=== PATIENT | male | born 1935 | race Caucasian/White ===

== ENCOUNTER → 2017-08-28 21:15 | Outpatient (CLI) | payer MEDICARE, BC | END | disposition home or self-care (01) | LOC: D.MAMMO 12:00 | DX: N64.59 Other signs and symptoms in breast (principal) ==

== ENCOUNTER 2018-07-02 11:29 | Inpatient (IN) | payer MEDICARE, BC ==
[~2018-07-02] VITALS: Ht 177.8 cm; Wt 96.4 kg
[2018-07-02 12:23] LABS: BASOPHILS 0.1 % (0-2); EOSINOPHILS 0.1 % (0-7); HEMATOCRIT 45.6 % (42.0-54.0); HEMOGLOBIN 15.5 g/dL (13.5-17.5); IMMATURE GRANULOCYTES 0.2 % (0-5); LYMPHOCYTES 3.5 % (15-50); MCH 32.9 pg (26.0-34.0); MCV 96.8 fL (80.0-100.0); MEAN PLATELET VOLUME 11.3 fL (7.4-10.4); MONOCYTES 6.7 % (2-11); NEUTROPHILS 89.4 % (40-80); PLATELET COUNT 197 10x3/uL (130-400); RBC 4.71 10x6/uL (4.20-6.10); RDW 14.7 % (11.5-14.5); WBC 17.7 10x3/uL (4.8-10.8)
[2018-07-02 12:24] LABS: ALKALINE PHOSPHATASE 153 U/L (46-116); ALT (SGPT) 431 U/L (10-68); BILIRUBIN - TOTAL 3.24 mg/dL (0.2-1.3); CALC OSMOLALITY 282 mosm/kg (275-300); CALCIUM 9.2 mg/dL (8.5-10.1); CARBON DIOXIDE 21.1 mmol/L (21.0-32.0); CHLORIDE - SERUM 103 mmol/L (98-107); POTASSIUM - SERUM 4.2 mmol/L (3.5-5.1); PROTEIN - SERUM 7.6 g/dL (6.4-8.2); SODIUM 138 mmol/L (136-145); UREA NITROGEN 15 mg/dL (7-18); eGFR NON AFRICAN AMERICAN 76 mL/min (90-120)
[2018-07-02 12:27] LABS: GLUCOSE 201 mg/dL (74-106); TROPONIN-I < 0.017 ng/mL (0.000-0.060)
[2018-07-02 12:58] LABS: AMYLASE - SERUM 2450 U/L (25-115)
[2018-07-02 13:00] VITALS: BP 159/90
[2018-07-02 13:01] LABS: LIPASE 23514 U/L (73-393)
[2018-07-02 13:40] VITALS: BP 157/96
[2018-07-02 15:00] VITALS: BP 138/93
[2018-07-02 16:00] VITALS: BP 173/103
[2018-07-02 16:04] LABS: CHOL - HDL RATIO 3.4 ratio (2.3-4.9); LDL-HDL RATIO 2.1 ratio (1.5-3.5)
[2018-07-02 16:20] LABS: APPEARANCE CLEAR (CLEAR); BILIRUBIN NEGATIVE (NEGATIVE); COLOR YELLOW (YELLOW); GLUCOSE NEGATIVE (NEGATIVE); KETONE NEGATIVE (NEGATIVE); NITRITE NEGATIVE (NEGATIVE); PROTEIN NEGATIVE (NEGATIVE); UROBILINOGEN NORMAL (NORMAL)
[2018-07-02] MEDS ORDERED: ASPIRIN81 MG PO (17:40)
[2018-07-02 17:49] VITALS: BP 136/78; BMI 29.4
[2018-07-02 20:30] VITALS: BP 151/86
[2018-07-03 00:32] VITALS: BP 174/87
[2018-07-03 00:32] LABS: COLOR DK YELLOW (YELLOW)
[2018-07-03 00:33] LABS: APPEARANCE CLEAR (CLEAR); BACTERIA NONE SEEN /hpf (NONE SEEN); BILIRUBIN 2+ (NEGATIVE); EPITHELIAL CELLS NSEEN /hpf (0-5); GLUCOSE NEGATIVE (NEGATIVE); KETONE NEGATIVE (NEGATIVE); NITRITE NEGATIVE (NEGATIVE); PROTEIN TRACE mg/dL (NEGATIVE); RED CELLS - URINE RARE /hpf (0-5); UROBILINOGEN NORMAL (NORMAL); WHITE CELLS - URINE NSEEN /hpf (0-5)
[2018-07-03 04:39] VITALS: BP 130/93
[2018-07-03 06:05] LABS: INR 1.05 (0.85-1.17); PROTIME 13.2 SECONDS (11.6-15.0)
[2018-07-03 06:19] LABS: HEMATOCRIT 41.9 % (42.0-54.0); HEMOGLOBIN 14.5 g/dL (13.5-17.5); MCH 32.9 pg (26.0-34.0); MCHC 34.6 g/dL (31.0-37.0); MEAN PLATELET VOLUME 11.3 fL (7.4-10.4); PLATELET COUNT 196 10x3/uL (130-400); RBC 4.41 10x6/uL (4.20-6.10); RDW 14.8 % (11.5-14.5); WBC 25.2 10x3/uL (4.8-10.8)
[2018-07-03 06:27] LABS: ALBUMIN 3.2 g/dL (3.4-5.0); ALKALINE PHOSPHATASE 127 U/L (46-116); BILIRUBIN - DIRECT 1.17 mg/dL (0.00-0.30); BILIRUBIN - TOTAL 2.07 mg/dL (0.2-1.3); C-REACTIVE PROTEIN 11.1 mg/dL (0.0-0.9); CALCIUM 8.1 mg/dL (8.5-10.1); CHLORIDE - SERUM 104 mmol/L (98-107); CREATININE - SERUM 0.9 mg/dL (0.6-1.3); MAGNESIUM - SERUM 1.7 mg/dL (1.8-2.4); POTASSIUM - SERUM 3.7 mmol/L (3.5-5.1); PROTEIN - SERUM 6.8 g/dL (6.4-8.2); SODIUM 137 mmol/L (136-145); UREA NITROGEN 16 mg/dL (7-18); eGFR NON AFRICAN AMERICAN 86 mL/min (90-120)
[2018-07-03 06:33] LABS: ALT (SGPT) 322 U/L (10-68); CALC OSMOLALITY 276 mosm/kg (275-300); GLUCOSE 139 mg/dL (74-106)
[2018-07-03 06:35] LABS: AMYLASE - SERUM 1069 U/L (25-115)
[2018-07-03 07:02] LABS: LIPASE 5287 U/L (73-393)
[2018-07-03 07:46] LABS: LYMPHOCYTES 1 % (15-50); MONOCYTES 6 % (2-11); NEUTROPHILS 83 % (40-80); PLATELET ESTIMATE NORMAL
[2018-07-03 09:37] VITALS: BP 149/81
[2018-07-03 10:01] VITALS: BMI 29.7
[2018-07-03 12:27] VITALS: BP 124/83
[2018-07-03 18:34] VITALS: BP 132/80
[2018-07-03 20:00] VITALS: BP 120/77
[2018-07-04] VITALS: BP 132/71
[2018-07-04 04:00] VITALS: BP 134/78
[2018-07-04 04:58] LABS: BASOPHILS 0.1 % (0-2); EOSINOPHILS 0 % (0-7); HEMATOCRIT 42.7 % (42.0-54.0); HEMOGLOBIN 14.3 g/dL (13.5-17.5); LYMPHOCYTES 4.5 % (15-50); MCH 32.9 pg (26.0-34.0); MCHC 33.5 g/dL (31.0-37.0); MCV 98.4 fL (80.0-100.0); MEAN PLATELET VOLUME 11.4 fL (7.4-10.4); MONOCYTES 6.7 % (2-11); NEUTROPHILS 87.7 % (40-80); PLATELET COUNT 189 10x3/uL (130-400); RBC 4.34 10x6/uL (4.20-6.10); RDW 15.4 % (11.5-14.5); WBC 38.5 10x3/uL (4.8-10.8)
[2018-07-04 08:12] VITALS: BP 149/88
[2018-07-04 08:42] LABS: ALBUMIN 2.6 g/dL (3.4-5.0); ALKALINE PHOSPHATASE 86 U/L (46-116); ALT (SGPT) 176 U/L (10-68); BILIRUBIN - DIRECT 0.39 mg/dL (0.00-0.30); BILIRUBIN - TOTAL 0.91 mg/dL (0.2-1.3); CALC OSMOLALITY 273 mosm/kg (275-300); CALCIUM 7.8 mg/dL (8.5-10.1); CARBON DIOXIDE 22.3 mmol/L (21.0-32.0); CHLORIDE - SERUM 103 mmol/L (98-107); GLUCOSE 163 mg/dL (74-106); MAGNESIUM - SERUM 1.6 mg/dL (1.8-2.4); POTASSIUM - SERUM 3.8 mmol/L (3.5-5.1); PROTEIN - SERUM 6.1 g/dL (6.4-8.2); SODIUM 134 mmol/L (136-145); UREA NITROGEN 19 mg/dL (7-18); eGFR NON AFRICAN AMERICAN 76 mL/min (90-120)
[2018-07-04 11:05] LABS: LIPASE 394 U/L (73-393)
[2018-07-04 11:06] LABS: AMYLASE - SERUM 171 U/L (25-115)
[2018-07-04 11:09] LABS: APPEARANCE HAZY (CLEAR); COLOR DK YELLOW (YELLOW); SPECIFIC GRAVITY 1.025 (1.005-1.020)
[2018-07-04 11:10] LABS: BACTERIA MODERATE /hpf (NONE SEEN); BILIRUBIN NEGATIVE (NEGATIVE); EPITHELIAL CELLS 0-5 /hpf (0-5); GLUCOSE NEGATIVE (NEGATIVE); GRANULAR CAST 0-5 /lpf (NONE SEEN); HYALINE CAST RARE /lpf (NONE SEEN); KETONE NEGATIVE (NEGATIVE); MUCUS <1+ /lpf (NONE SEEN); NITRITE POSITIVE (NEGATIVE); PROTEIN 1+ mg/dL (NEGATIVE); UROBILINOGEN NORMAL (NORMAL); WHITE CELLS - URINE 0-5 /hpf (0-5)
[2018-07-04 12:31] VITALS: BP 124/82
[2018-07-04 16:39] VITALS: BP 150/82
[2018-07-04 20:00] VITALS: BP 135/82
[2018-07-05 00:06] VITALS: BP 143/71
[2018-07-05 04:00] VITALS: BP 130/88
[2018-07-05 05:24] LABS: HEMATOCRIT 35.4 % (42.0-54.0); IMMATURE GRANULOCYTES 0.5 % (0-5); MCH 32.5 pg (26.0-34.0); MCHC 33.9 g/dL (31.0-37.0); MCV 95.9 fL (80.0-100.0); PLATELET COUNT 150 10x3/uL (130-400); RBC 3.69 10x6/uL (4.20-6.10); RDW 15.1 % (11.5-14.5); WBC 23.1 10x3/uL (4.8-10.8)
[2018-07-05 05:25] LABS: ALBUMIN 2.2 g/dL (3.4-5.0); ALKALINE PHOSPHATASE 73 U/L (46-116); CALC OSMOLALITY 272 mosm/kg (275-300); CALCIUM 7.7 mg/dL (8.5-10.1); CARBON DIOXIDE 21.6 mmol/L (21.0-32.0); CHLORIDE - SERUM 102 mmol/L (98-107); GLUCOSE 150 mg/dL (74-106); LIPASE 125 U/L (73-393); MAGNESIUM - SERUM 1.9 mg/dL (1.8-2.4); POTASSIUM - SERUM 3.5 mmol/L (3.5-5.1); PROTEIN - SERUM 5.8 g/dL (6.4-8.2); SODIUM 134 mmol/L (136-145); UREA NITROGEN 18 mg/dL (7-18)
[2018-07-05 05:28] LABS: ALT (SGPT) 110 U/L (10-68); AMYLASE - SERUM 67 U/L (25-115); CREATININE - SERUM 0.7 mg/dL (0.6-1.3); eGFR NON AFRICAN AMERICAN > 90 mL/min (90-120)
[2018-07-05 08:45] LABS: EOSINOPHILS 3 % (0-7); LYMPHOCYTES 13 % (15-50); MONOCYTES 2 % (2-11); NEUTROPHILS 82 % (40-80)
[2018-07-05 08:46] LABS: BASOPHILS 0 % (0-2)
[2018-07-05 08:47] LABS: EOSINOPHILS 3 % (0-7); LYMPHOCYTES 13 % (15-50); MONOCYTES 2 % (2-11); NEUTROPHILS 82 % (40-80); PLATELET ESTIMATE NORMAL
[2018-07-05 09:51] VITALS: BP 133/76
[2018-07-05 13:11] VITALS: BP 137/80
[2018-07-05 17:40] VITALS: BP 145/82
[2018-07-06] VITALS (7 sets, daily range): BP systolic 126–155; BP diastolic 72–89
[2018-07-06 04:53] LABS: HEMOGLOBIN 11.5 g/dL (13.5-17.5); MCH 32.3 pg (26.0-34.0); MCHC 33.8 g/dL (31.0-37.0); MCV 95.5 fL (80.0-100.0); MEAN PLATELET VOLUME 11.3 fL (7.4-10.4); PLATELET COUNT 145 10x3/uL (130-400); RBC 3.56 10x6/uL (4.20-6.10); RDW 14.9 % (11.5-14.5); WBC 21.7 10x3/uL (4.8-10.8)
[2018-07-06 05:30] LABS: ALBUMIN 2.1 g/dL (3.4-5.0); ALKALINE PHOSPHATASE 73 U/L (46-116); BILIRUBIN - TOTAL 0.67 mg/dL (0.2-1.3); CALC OSMOLALITY 268 mosm/kg (275-300); CALCIUM 7.6 mg/dL (8.5-10.1); CARBON DIOXIDE 20.3 mmol/L (21.0-32.0); CHLORIDE - SERUM 102 mmol/L (98-107); CREATININE - SERUM 0.7 mg/dL (0.6-1.3); GLUCOSE 129 mg/dL (74-106); LIPASE 80 U/L (73-393); MAGNESIUM - SERUM 1.8 mg/dL (1.8-2.4); POTASSIUM - SERUM 3.7 mmol/L (3.5-5.1); PROTEIN - SERUM 5.8 g/dL (6.4-8.2); SODIUM 133 mmol/L (136-145); UREA NITROGEN 14 mg/dL (7-18); eGFR NON AFRICAN AMERICAN > 90 mL/min (90-120)
[2018-07-06 05:32] LABS: LYMPHOCYTES 9 % (15-50); MONOCYTES 4 % (2-11); NEUTROPHILS 81 % (40-80); PLATELET ESTIMATE NORMAL; PLATELET MORPHOLOGY GIANT PLTS PRESENT
[2018-07-06 05:34] LABS: ALT (SGPT) 72 U/L (10-68); AMYLASE - SERUM 47 U/L (25-115)
[2018-07-07] VITALS (7 sets, daily range): BP systolic 129–189; BP diastolic 78–96
[2018-07-07 05:36] LABS: HEMATOCRIT 34.5 % (42.0-54.0); LYMPHOCYTES 4.7 % (15-50); MCH 34.3 pg (26.0-34.0); MCHC 34.8 g/dL (31.0-37.0); MCV 98.6 fL (80.0-100.0); MEAN PLATELET VOLUME 11.2 fL (7.4-10.4); NEUTROPHILS 87.3 % (40-80); PLATELET COUNT 91 10x3/uL (130-400); RDW 15.4 % (11.5-14.5); WBC 22.9 10x3/uL (4.8-10.8)
[2018-07-07 05:58] LABS: ALBUMIN 2.1 g/dL (3.4-5.0); ALKALINE PHOSPHATASE 67 U/L (46-116); BILIRUBIN - TOTAL 0.56 mg/dL (0.2-1.3); CALC OSMOLALITY 275 mosm/kg (275-300); CALCIUM 7.4 mg/dL (8.5-10.1); CARBON DIOXIDE 22.3 mmol/L (21.0-32.0); CHLORIDE - SERUM 104 mmol/L (98-107); CREATININE - SERUM 0.7 mg/dL (0.6-1.3); GLUCOSE 143 mg/dL (74-106); LIPASE 104 U/L (73-393); MAGNESIUM - SERUM 1.9 mg/dL (1.8-2.4); POTASSIUM - SERUM 3.4 mmol/L (3.5-5.1); PROTEIN - SERUM 4.9 g/dL (6.4-8.2); SODIUM 137 mmol/L (136-145); UREA NITROGEN 12 mg/dL (7-18); eGFR NON AFRICAN AMERICAN > 90 mL/min (90-120)
[2018-07-07 05:59] LABS: ALT (SGPT) 51 U/L (10-68); AMYLASE - SERUM 34 U/L (25-115)
[2018-07-08 03:39] VITALS: BP 159/93
[2018-07-08 07:16] LABS: HEMATOCRIT 33.4 % (42.0-54.0); HEMOGLOBIN 11.3 g/dL (13.5-17.5); MCH 32.1 pg (26.0-34.0); MCHC 33.8 g/dL (31.0-37.0); MCV 94.9 fL (80.0-100.0); MEAN PLATELET VOLUME 10.8 fL (7.4-10.4); PLATELET COUNT 158 10x3/uL (130-400); RBC 3.52 10x6/uL (4.20-6.10); RDW 14.9 % (11.5-14.5); WBC 26.4 10x3/uL (4.8-10.8)
[2018-07-08 07:57] LABS: LYMPHOCYTES 6 % (15-50); MONOCYTES 3 % (2-11); NEUTROPHILS 91 % (40-80)
[2018-07-08 08:00] LABS: PLATELET ESTIMATE NORMAL; PLATELET MORPHOLOGY NORMAL PLT MORPH
[2018-07-08 08:08] LABS: CALCIUM 7.5 mg/dL (8.5-10.1); CARBON DIOXIDE 25.1 mmol/L (21.0-32.0); CREATININE - SERUM 0.8 mg/dL (0.6-1.3); GLUCOSE 145 mg/dL (74-106); LIPASE 197 U/L (73-393); UREA NITROGEN 9 mg/dL (7-18); eGFR NON AFRICAN AMERICAN > 90 mL/min (90-120)
[2018-07-08 08:16] LABS: AMYLASE - SERUM 43 U/L (25-115)
[2018-07-08 08:33] LABS: CALC OSMOLALITY 266 mosm/kg (275-300); CHLORIDE - SERUM 99 mmol/L (98-107); POTASSIUM - SERUM 3.4 mmol/L (3.5-5.1); SODIUM 132 mmol/L (136-145)
[2018-07-08 08:54] VITALS: BP 151/77
--- NOTE | 2018-07-08 16:23 | MORECARE ---
CASE MANAGEMENT DISCHARGE SUMMARY PATIENT: NILAY FORRESTER UNIT: [id number] ADM DATE: 07/02/18 AGE: 83 : 36 SEX: M ROOM/BED: D.2107 AUTHOR: BELIA,DOC PHYSICIAN: REFERRING PHYSICIAN: NICHOLAS HUDSON DO DATE OF SERVICE: 07/08/18 Discharge Plan Patient Name: NILAY FORRESTER Facility: [facility]:[place] : 1935 Planned Disposition: Home with Home Health Anticipated Discharge Date: Discharge Date: Expected LOS: Initial Reviewer: [id number] Initial Review Date: 07/02/2018 Generated: 07/08/18 5:23 pm Comments DCP- Discharge Planning Updated by [email or web address]: Alan Mitchell on 07/08/18 3:[address] Patient Name: NILAY FORRESTER Admission Status: ER Accout number: [id number] Admission Date: 07-02-2018 : 1935 Admission Diagnosis:UNSPECIFIED ABDOMINAL PAIN Attending: NICHOLAS HUDSON Current LOS: 6 Anticipated DC Date: Planned Disposition: Home with Home Health Primary Insurance: MEDICARE A & B PLANNED EXTERNAL PROVIDER: [facility] Discharge Planning Comments: CM MET WITH PT IN ROOM TO DISCUSS DISCHARGE PLANNING AND NEEDS. PT REPORTS LIVING AT HOME INDEPENDENTLY WITH SPOUSE FOR WHOM HE "LOOKS AFTER". PT HAS NO MEDICAL EQUIPMENT AND NO OUTSIDE SERVICES ASSISTING IN THE HOME. CM DISCUSSED AVAILABILITY OF HOME HEALTH, REHAB SERVICES AND MEDICAL EQUIPMENT. PT DENIES DISCHARGE NEEDS OTHER THAN POSSIBLY A WALKER, HE IS NOT SURE AT THIS TIME; PT REPORTS [facility] WILL PICK HIM UP FOR DISCHARGE HOME. PT DENIES DISCHARGE NEEDS AT THIS TIME, HE MAY NEED A WALKER FOR HOME USE AT DISCHARGE, [facility] TO TRANPSPORT BACK TO [place]DEP[facility]ENT LIVING APARTMENT. CM TO CONTINUE TO FOLLOW AND ASSIST IF NEEDED. Surgical Corsetier: Alan Mitchell DCPIA - Discharge Planning Initial Assessment Updated by [id number]: Alan Mitchell on 07/08/18 4:21 pm * Is the patient Alert and Oriented? Yes * How many steps to enter\\exit or inside your home? ELEVATOR * PCP DR. PINEDO * [facility] [address] * Preadmission Environment [facility] * Other Environment [facility] * Facility Name [facility] * ADLs Independent * Equipment None * Other Equipment NO MEDICAL EQUIPMENT PROVIDER PREFERENCE * List name and contact numbers for known caregivers / representatives who currently or will assist patient after discharge: DARCY FORRESTER, SPOUSE, * Verbal permission to speak to the caregivers and representatives has been obtained from the patient. N/A * Community resources currently utilized None * Please name any agencies selected above. NONE * Additional services required to return to the preadmission environment? No * Can the patient safely return to the preadmission environment? Yes * Has this patient been hospitalized within the prior 30 days at any hospital? No Patient Name: NILAY FORRESTER Page [id number] at 1623 All edits/amendments must be made on the electronic document DICTATION DATE: 07/08/181622 EDI CONSULTANT: DEMIAN 07/08/181622 RPT#: [id number] MA DATE: STATUS: ADM IN [facility] [address] [place] [address] END OF REPORT
--- NOTE | 2018-07-08 16:34 | MORECARE ---
CASE MANAGEMENT DISCHARGE SUMMARY PATIENT: NILAY FORRESTER UNIT: [id number] ADM DATE: 07/02/18 AGE: 83 : 36 SEX: M ROOM/BED: D.2107 AUTHOR: BELIA,DOC PHYSICIAN: REFERRING PHYSICIAN: NICHOLAS HUDSON DO DATE OF SERVICE: 07/08/18 Discharge Plan Patient Name: NILAY FORRESTER Facility: [facility]:[place] : 1935 Planned Disposition: Home with Home Health Anticipated Discharge Date: Discharge Date: Expected LOS: Initial Reviewer: [email or web address] Initial Review Date: 07/02/2018 Generated: 07/08/18 5:34 pm Comments DCP- Discharge Planning Updated by [id number]: Alan Pan on 07/08/18 3:[address] Patient Name: NILAY FORRESTER Admission Status: ER Accout number: [id number] Admission Date: 07-02-2018 : 1935 Admission Diagnosis:UNSPECIFIED ABDOMINAL PAIN Attending: NICHOLAS HUDSON Current LOS: 6 Anticipated DC Date: Planned Disposition: Home with Home Health Primary Insurance: MEDICARE A & B PLANNED EXTERNAL PROVIDER: [facility] Discharge Planning Comments: CM MET WITH PT IN ROOM TO DISCUSS DISCHARGE PLANNING AND NEEDS. PT REPORTS LIVING AT HOME INDEPENDENTLY WITH SPOUSE FOR WHOM HE "LOOKS AFTER". PT HAS NO MEDICAL EQUIPMENT AND NO OUTSIDE SERVICES ASSISTING IN THE HOME. CM DISCUSSED AVAILABILITY OF HOME HEALTH, REHAB SERVICES AND MEDICAL EQUIPMENT. PT DENIES DISCHARGE NEEDS OTHER THAN POSSIBLY A WALKER, HE IS NOT SURE AT THIS TIME; PT REPORTS [facility] WILL PICK HIM UP FOR DISCHARGE HOME. PT DENIES DISCHARGE NEEDS AT THIS TIME, HE MAY NEED A WALKER FOR HOME USE AT DISCHARGE, [facility] TO TRANPSPORT BACK TO [place]DEPENDENT LIVING APARTMENT. CM TO CONTINUE TO FOLLOW AND ASSIST IF NEEDED. Android Programmer: Alan Pan Appended by Alan Pan on 07/08/2018 16:30 CDT: CM SPOKE TO PINEDA OF [facility] WHO VERIFIED PT IS ACTIVE ON HOLD FOR HOME HEALTH; FOR RESUMPTION OF HOME HEALTH AT DISCHARGE, NOTIFY [facility] AT [phone], FAX DISCHARGE INFORMATION TO [facility] AT [phone]. CM TO MONITOR FOR ANY FURTHER MEDICAL EQUIPMENT OR REHAB NEEDS. ALAN PAN, CASE MANAGEMENT DCPIA - Discharge Planning Initial Assessment Updated by [email or web address]: Alan Pan on 07/08/18 4:21 pm * Is the patient Alert and Oriented? Yes * How many steps to enter\\exit or inside your home? ELEVATOR * PCP DR. PINEDO * Pharmacy [facility] ON [address] * Preadmission Environment [facility] Apartment * Other Environment [facility] * Facility Name [facility] * ADLs Independent * Equipment None * Other Equipment NO MEDICAL EQUIPMENT PROVIDER PREFERENCE * List name and contact numbers for known caregivers / representatives who currently or will assist patient after discharge: DARCY FORRESTER, SPOUSE, * Verbal permission to speak to the caregivers and representatives has been obtained from the patient. N/A * Community resources currently utilized None * Please name any agencies selected above. NONE * Additional services required to return to the preadmission environment? No * Can the patient safely return to the preadmission environment? Yes * Has this patient been hospitalized within the prior 30 days at any hospital? No External Providers External Provider: [facility] Next Contact Date: 07/09/2018 Service Request Date: Service Type: Resolution: Reviewer: Comments: Last DP export: 07/08/18 3:23 pm Patient Name: NILAY FORRESTER Page 33791 at 1634 All edits/amendments must be made on the electronic document DICTATION DATE: 07/08/18 163 SURGICAL SUPPLIES STERILIZER: DEMIAN 07/08/18 1634 RPT#: [id number] DC DATE: STATUS: ADM IN [facility] [address] [place] [address] END OF REPORT
[2018-07-08 17:16] VITALS: BP 123/63
[2018-07-08 19:55] VITALS: BP 152/97
[2018-07-08 23:55] VITALS: BP 146/77
[2018-07-09 03:30] VITALS: BP 155/81
[2018-07-09 06:44] LABS: APTT 33.3 SECONDS (22.8-39.4); INR 1.38 (0.85-1.17); PROTIME 16.4 SECONDS (11.6-15.0)
[2018-07-09 07:35] LABS: BASOPHILS 0.5 % (0-2); EOSINOPHILS 0.5 % (0-7); HEMATOCRIT 32.1 % (42.0-54.0); HEMOGLOBIN 10.8 g/dL (13.5-17.5); IMMATURE GRANULOCYTES 6.6 % (0-5); LYMPHOCYTES 4.6 % (15-50); MCHC 33.6 g/dL (31.0-37.0); MCV 95.3 fL (80.0-100.0); MEAN PLATELET VOLUME 10.9 fL (7.4-10.4); MONOCYTES 10.3 % (2-11); NEUTROPHILS 77.5 % (40-80); PLATELET COUNT 146 10x3/uL (130-400); RBC 3.37 10x6/uL (4.20-6.10); RDW 15.2 % (11.5-14.5); WBC 27.7 10x3/uL (4.8-10.8)
[2018-07-09 07:45] LABS: CALC OSMOLALITY 273 mosm/kg (275-300); CALCIUM 7.3 mg/dL (8.5-10.1); CARBON DIOXIDE 25.5 mmol/L (21.0-32.0); CHLORIDE - SERUM 101 mmol/L (98-107); CREATININE - SERUM 0.6 mg/dL (0.6-1.3); GLUCOSE 110 mg/dL (74-106); POTASSIUM - SERUM 3.2 mmol/L (3.5-5.1); SODIUM 137 mmol/L (136-145); UREA NITROGEN 10 mg/dL (7-18); eGFR NON AFRICAN AMERICAN > 90 mL/min (90-120)
[2018-07-09 09:00] VITALS: BP 131/81
[2018-07-09 12:17] VITALS: BP 133/72
[2018-07-09 13:07] LABS: MACROPHAGES BF 5 %; NEUT - BF 93 %
[2018-07-09 17:26] VITALS: BP 150/86
[2018-07-09 18:11] VITALS: BP 133/72
[2018-07-09 20:00] VITALS: BP 126/72
[2018-07-10 00:30] VITALS: BP 122/69
[2018-07-10 05:00] VITALS: BP 159/87
[2018-07-10 06:12] LABS: HEMATOCRIT 32.9 % (42.0-54.0); HEMOGLOBIN 11.4 g/dL (13.5-17.5); MCH 32.1 pg (26.0-34.0); MCHC 34.7 g/dL (31.0-37.0); MCV 92.7 fL (80.0-100.0); MEAN PLATELET VOLUME 10.5 fL (7.4-10.4); PLATELET COUNT 166 10x3/uL (130-400); RBC 3.55 10x6/uL (4.20-6.10); RDW 14.7 % (11.5-14.5); WBC 30.6 10x3/uL (4.8-10.8)
[2018-07-10 06:23] LABS: CALC OSMOLALITY 265 mosm/kg (275-300); CARBON DIOXIDE 26.2 mmol/L (21.0-32.0); CHLORIDE - SERUM 98 mmol/L (98-107); CREATININE - SERUM 0.7 mg/dL (0.6-1.3); GLUCOSE 138 mg/dL (74-106); POTASSIUM - SERUM 3.2 mmol/L (3.5-5.1); SODIUM 132 mmol/L (136-145); UREA NITROGEN 10 mg/dL (7-18); eGFR NON AFRICAN AMERICAN > 90 mL/min (90-120)
[2018-07-10 07:50] LABS: ANISOCYTOSIS OCC; EOSINOPHILS 1 % (0-7); LYMPHOCYTES 5 % (15-50); MONOCYTES 5 % (2-11); NEUTROPHILS 74 % (40-80); POLYCHROMASIA OCC; TOXIC GRANULATION 1+
[2018-07-10 07:51] LABS: PLATELET ESTIMATE DECREASED
[2018-07-10 10:02] VITALS: BP 121/82
[2018-07-10 15:34] VITALS: BP 122/83
[2018-07-10 16:31] VITALS: Ht 177.8 cm; Wt 96.4 kg
[2018-07-10 20:00] VITALS: BP 146/84
[2018-07-11] VITALS (7 sets, daily range): BP systolic 126–167; BP diastolic 75–95
[2018-07-11 02:48] LABS: BASOPHILS 0.2 % (0-2); EOSINOPHILS 0.2 % (0-7); HEMATOCRIT 31.3 % (42.0-54.0); HEMOGLOBIN 10.7 g/dL (13.5-17.5); IMMATURE GRANULOCYTES 5.2 % (0-5); MCHC 34.2 g/dL (31.0-37.0); MCV 93.7 fL (80.0-100.0); MEAN PLATELET VOLUME 10.2 fL (7.4-10.4); MONOCYTES 6.5 % (2-11); NEUTROPHILS 83.9 % (40-80); PLATELET COUNT 152 10x3/uL (130-400); RBC 3.34 10x6/uL (4.20-6.10); RDW 15.2 % (11.5-14.5); WBC 28.7 10x3/uL (4.8-10.8)
[2018-07-11 02:56] LABS: CALC OSMOLALITY 268 mosm/kg (275-300); CALCIUM 7.9 mg/dL (8.5-10.1); CARBON DIOXIDE 23.5 mmol/L (21.0-32.0); CHLORIDE - SERUM 101 mmol/L (98-107); CREATININE - SERUM 0.7 mg/dL (0.6-1.3); GLUCOSE 128 mg/dL (74-106); SODIUM 134 mmol/L (136-145); UREA NITROGEN 9 mg/dL (7-18); eGFR NON AFRICAN AMERICAN > 90 mL/min (90-120)
[2018-07-12 04:36] LABS: HEMATOCRIT 32.3 % (42.0-54.0); HEMOGLOBIN 11.1 g/dL (13.5-17.5); MCH 32.2 pg (26.0-34.0); MCHC 34.4 g/dL (31.0-37.0); MCV 93.6 fL (80.0-100.0); PLATELET COUNT 145 10x3/uL (130-400); RBC 3.45 10x6/uL (4.20-6.10); RDW 14.8 % (11.5-14.5)
[2018-07-12 04:37] LABS: LYMPHOCYTES 8 % (15-50); MONOCYTES 7 % (2-11); NEUTROPHILS 80 % (40-80); PLATELET ESTIMATE NORMAL
[2018-07-12 04:48] LABS: CALC OSMOLALITY 266 mosm/kg (275-300); CALCIUM 7.9 mg/dL (8.5-10.1); CARBON DIOXIDE 26.3 mmol/L (21.0-32.0); CHLORIDE - SERUM 101 mmol/L (98-107); CREATININE - SERUM 0.7 mg/dL (0.6-1.3); GLUCOSE 152 mg/dL (74-106); POTASSIUM - SERUM 3.5 mmol/L (3.5-5.1); SODIUM 133 mmol/L (136-145); eGFR NON AFRICAN AMERICAN > 90 mL/min (90-120)
[2018-07-12 04:51] LABS: UREA NITROGEN 6 mg/dL (7-18)
[2018-07-12 08:48] VITALS: BP 137/68
[2018-07-12 12:25] VITALS: BP 127/86
[2018-07-12 15:59] VITALS: BP 134/85
[2018-07-13 04:45] LABS: BASOPHILS 0.2 % (0-2); EOSINOPHILS 0.6 % (0-7); HEMATOCRIT 30.5 % (42.0-54.0); HEMOGLOBIN 10.5 g/dL (13.5-17.5); IMMATURE GRANULOCYTES 2.5 % (0-5); LYMPHOCYTES 5.7 % (15-50); MCH 32.2 pg (26.0-34.0); MCHC 34.4 g/dL (31.0-37.0); MCV 93.6 fL (80.0-100.0); MEAN PLATELET VOLUME 10.5 fL (7.4-10.4); PLATELET COUNT 162 10x3/uL (130-400); RBC 3.26 10x6/uL (4.20-6.10); WBC 19.5 10x3/uL (4.8-10.8)
[2018-07-13 05:01] LABS: CALC OSMOLALITY 272 mosm/kg (275-300); CALCIUM 7.9 mg/dL (8.5-10.1); CARBON DIOXIDE 26.4 mmol/L (21.0-32.0); CHLORIDE - SERUM 103 mmol/L (98-107); CREATININE - SERUM 0.8 mg/dL (0.6-1.3); GLUCOSE 146 mg/dL (74-106); POTASSIUM - SERUM 3.6 mmol/L (3.5-5.1); SODIUM 136 mmol/L (136-145); eGFR NON AFRICAN AMERICAN > 90 mL/min (90-120)
[2018-07-13 05:02] LABS: UREA NITROGEN 8 mg/dL (7-18)
[2018-07-13 07:58] VITALS: BP 131/77
[2018-07-13 11:22] VITALS: BP 132/74
[2018-07-13 16:10] VITALS: BP 135/72
[2018-07-13 20:00] VITALS: BP 137/78
[2018-07-14] VITALS: BP 135/75
[2018-07-14 04:00] VITALS: BP 135/78
[2018-07-14 06:16] LABS: CALC OSMOLALITY 271 mosm/kg (275-300); CALCIUM 8.4 mg/dL (8.5-10.1); CARBON DIOXIDE 28.9 mmol/L (21.0-32.0); CHLORIDE - SERUM 101 mmol/L (98-107); CREATININE - SERUM 0.8 mg/dL (0.6-1.3); GLUCOSE 158 mg/dL (74-106); POTASSIUM - SERUM 3.9 mmol/L (3.5-5.1); SODIUM 135 mmol/L (136-145); UREA NITROGEN 10 mg/dL (7-18); eGFR NON AFRICAN AMERICAN > 90 mL/min (90-120)
[2018-07-14 06:29] LABS: HEMOGLOBIN 10.8 g/dL (13.5-17.5); MCHC 33.8 g/dL (31.0-37.0); MEAN PLATELET VOLUME 10.5 fL (7.4-10.4); PLATELET COUNT 176 10x3/uL (130-400); RBC 3.37 10x6/uL (4.20-6.10); RDW 15.3 % (11.5-14.5); WBC 19.4 10x3/uL (4.8-10.8)
[2018-07-14 07:30] LABS: EOSINOPHILS 1 % (0-7); LYMPHOCYTES 1 % (15-50); MONOCYTES 6 % (2-11); NEUTROPHILS 90 % (40-80); PLATELET ESTIMATE NORMAL; TOXIC GRANULATION 2+
[2018-07-14 07:53] VITALS: BP 132/76
[2018-07-14 11:19] VITALS: BP 139/95
[2018-07-14 14:46] VITALS: BP 135/74
[2018-07-14 20:00] VITALS: BP 138/80
[2018-07-15 00:59] VITALS: BP 134/75
[2018-07-15 05:48] LABS: BASOPHILS 0.2 % (0-2); EOSINOPHILS 0.6 % (0-7); HEMATOCRIT 30.1 % (42.0-54.0); HEMOGLOBIN 10.1 g/dL (13.5-17.5); IMMATURE GRANULOCYTES 1.4 % (0-5); LYMPHOCYTES 7.9 % (15-50); MCH 31.8 pg (26.0-34.0); MCHC 33.6 g/dL (31.0-37.0); MCV 94.7 fL (80.0-100.0); MEAN PLATELET VOLUME 10.6 fL (7.4-10.4); MONOCYTES 10.6 % (2-11); NEUTROPHILS 79.3 % (40-80); PLATELET COUNT 164 10x3/uL (130-400); RBC 3.18 10x6/uL (4.20-6.10); RDW 15.1 % (11.5-14.5)
[2018-07-15 05:49] VITALS: BP 119/80
[2018-07-15 05:56] LABS: WBC 12.5 10x3/uL (4.8-10.8)
[2018-07-15 06:16] LABS: CALC OSMOLALITY 272 mosm/kg (275-300); CARBON DIOXIDE 29.1 mmol/L (21.0-32.0); CHLORIDE - SERUM 103 mmol/L (98-107); CREATININE - SERUM 0.7 mg/dL (0.6-1.3); GLUCOSE 138 mg/dL (74-106); POTASSIUM - SERUM 4.2 mmol/L (3.5-5.1); SODIUM 136 mmol/L (136-145); UREA NITROGEN 11 mg/dL (7-18); eGFR NON AFRICAN AMERICAN > 90 mL/min (90-120)
[2018-07-15 08:55] LABS: ALBUMIN 1.7 g/dL (3.4-5.0); ALKALINE PHOSPHATASE 50 U/L (46-116); ALT (SGPT) 11 U/L (10-68); AMYLASE - SERUM 62 U/L (25-115); BILIRUBIN - TOTAL 0.26 mg/dL (0.2-1.3); LIPASE 270 U/L (73-393); PROTEIN - SERUM 5.9 g/dL (6.4-8.2)
[2018-07-15 10:25] VITALS: BP 122/72
[2018-07-15 15:55] VITALS: BP 156/87
[2018-07-15 18:30] VITALS: BP 140/76
[2018-07-15 20:48] VITALS: BP 114/70
[2018-07-16 00:47] VITALS: BP 126/75
[2018-07-16 04:00] VITALS: BP 132/80
[2018-07-16 06:21] LABS: CALC OSMOLALITY 274 mosm/kg (275-300); CARBON DIOXIDE 28.2 mmol/L (21.0-32.0); CHLORIDE - SERUM 104 mmol/L (98-107); CREATININE - SERUM 0.7 mg/dL (0.6-1.3); GLUCOSE 136 mg/dL (74-106); POTASSIUM - SERUM 4.2 mmol/L (3.5-5.1); SODIUM 137 mmol/L (136-145); UREA NITROGEN 9 mg/dL (7-18); eGFR NON AFRICAN AMERICAN > 90 mL/min (90-120)
[2018-07-16 06:32] LABS: BASOPHILS 0.2 % (0-2); EOSINOPHILS 0.7 % (0-7); HEMATOCRIT 29.7 % (42.0-54.0); IMMATURE GRANULOCYTES 1.2 % (0-5); LYMPHOCYTES 7.5 % (15-50); MCH 31.8 pg (26.0-34.0); MCHC 33.7 g/dL (31.0-37.0); MCV 94.6 fL (80.0-100.0); MEAN PLATELET VOLUME 10.6 fL (7.4-10.4); MONOCYTES 10.5 % (2-11); NEUTROPHILS 79.9 % (40-80); PLATELET COUNT 162 10x3/uL (130-400); RBC 3.14 10x6/uL (4.20-6.10); WBC 10.8 10x3/uL (4.8-10.8)
[2018-07-16 08:00] LABS: MAGNESIUM - SERUM 2.2 mg/dL (1.8-2.4); PHOSPHOROUS 3.3 mg/dL (2.5-4.9)
--- NOTE | 2018-07-16 15:34 | MORECARE ---
CASE MANAGEMENT DISCHARGE SUMMARY PATIENT: NILAY FORRESTER UNIT: [id number] ADM DATE: 07/02/18 AGE: 83 : 36 SEX: M ROOM/BED: D.2107 AUTHOR: LEONARDO CELAYA PHYSICIAN: REFERRING PHYSICIAN: NICHOLAS HUDSON DO DATE OF SERVICE: 07/16/18 Discharge Plan Patient Name: NILAY FORRESTER Facility: [facility]:[place] : 1935 Planned Disposition: Home with Home Health Anticipated Discharge Date: Discharge Date: Expected LOS: Initial Reviewer: [id number] Initial Review Date: 07/02/2018 Generated: 07/16/18 4:33 pm Comments DCP- Discharge Planning Updated by [email or web address]: Alan Pan on 07/16/18 2:[address] Patient Name: NILAY FORRESTER Encounter No: [id number] : 1935 Primary Insurance: MEDICARE A & B Anticipated DC Date: Planned Disposition: Home with Home Health External Planned Provider: : [facility] DCP follow-up note: CM RECEIVED ORDER FOR [facility]. CM CALLED SARAH AT [facility] AND MICHELLE AT [facility] WHO BOTH INFORMED CM THAT PT REQUIRES THREE MIDNIGHT STAY IN ICU TO BE CONSIDERED FOR LTACH PLACEMENT. CM SPOKE TO PT IN ROOM AND DISCUSSED DISCHARGE NEEDS AND PLANS. PT REFUSED REHAB PLACEMENT, NURSING HOME PLACEMENT AND STATES HE HAS CAN GO HOME WITH HOME HEALTH AND IF HE NEEDS TO TRANSITION TO ASSISTED LIVING, HE WILL DO THAT. PT DOES NOT QUALIFY FOR LTACH. PT REFUSES REHAB PLACEMENT. PT PLANS TO DISCHARGE HOME WITH SPOUSE AND [facility] RESUMPTION. Alan Pan. CASE MANAGEMENT DCP- Discharge Planning Updated by [id number]: Alan Pan on 07/08/18 3:[address] Patient Name: NILAY FORRESTER Admission Status: ER Accout number: [id number] Admission Date: 07-02-2018 : 1935 Admission Diagnosis:UNSPECIFIED ABDOMINAL PAIN Attending: NICHOLAS HUDSON Current LOS: 6 Anticipated DC Date: Planned Disposition: Home with Home Health Primary Insurance: MEDICARE A & B PLANNED EXTERNAL PROVIDER: [facility] Discharge Planning Comments: CM MET WITH PT IN ROOM TO DISCUSS DISCHARGE PLANNING AND NEEDS. PT REPORTS LIVING AT HOME INDEPENDENTLY WITH SPOUSE FOR WHOM HE "LOOKS AFTER". PT HAS NO MEDICAL EQUIPMENT AND NO OUTSIDE SERVICES ASSISTING IN THE HOME. CM DISCUSSED AVAILABILITY OF HOME HEALTH, REHAB SERVICES AND MEDICAL EQUIPMENT. PT DENIES DISCHARGE NEEDS OTHER THAN POSSIBLY A WALKER, HE IS NOT SURE AT THIS TIME; PT REPORTS [facility] WILL PICK HIM UP FOR DISCHARGE HOME. PT DENIES DISCHARGE NEEDS AT THIS TIME, HE MAY NEED A WALKER FOR HOME USE AT DISCHARGE, [facility] TO TRANPSPORT BACK TO INDEPENDENT LIVING APARTMENT. CM TO CONTINUE TO FOLLOW AND ASSIST IF NEEDED. Invoice Control Clerk: Alan Pan Appended by Alan Pan on 07/08/2018 16:30 CDT: CM SPOKE TO PINEDA OF [facility] WHO VERIFIED PT IS ACTIVE ON HOLD FOR HOME HEALTH; FOR RESUMPTION OF HOME HEALTH AT DISCHARGE, NOTIFY [facility] AT [phone], FAX DISCHARGE INFORMATION TO [facility] AT [phone]. CM TO MONITOR FOR ANY FURTHER MEDICAL EQUIPMENT OR REHAB NEEDS. ALAN PAN, CASE MANAGEMENT DCPIA - Discharge Planning Initial Assessment Updated by [id number]: Alan Pan on 07/08/18 4:21 pm * Is the patient Alert and Oriented? Yes * How many steps to enter\\exit or inside your home? ELEVATOR * PCP DR. PINEDO * Pharmacy [facility] [address] * Preadmission Environment [facility] * Other Environment [facility] * Facility Name [facility] * ADLs Independent * Equipment None * Other Equipment NO MEDICAL EQUIPMENT PROVIDER PREFERENCE * List name and contact numbers for known caregivers / representatives who currently or will assist patient after discharge: DARCY FORRESTER, SPOUSE, * Verbal permission to speak to the caregivers and representatives has been obtained from the patient. N/A * Community resources currently utilized None * Please name any agencies selected above. NONE * Additional services required to return to the preadmission environment? No * Can the patient safely return to the preadmission environment? Yes * Has this patient been hospitalized within the prior 30 days at any hospital? No Last DP export: 07/08/18 3:34 pm Patient Name: NILAY FORRESTER Page [id number] at 1534 All edits/amendments must be made on the electronic document DICTATION DATE: 07/16/181532 PLATE CORRECTOR: DEMIAN 07/16/181532 RPT#: [id number] DC DATE: STATUS: ADM IN [facility] [address] [place] [address] END OF REPORT
[2018-07-16 18:17] VITALS: BP 130/86
[2018-07-16 20:00] VITALS: BP 152/81
[2018-07-17] VITALS: BP 141/90
[2018-07-17 04:00] VITALS: BP 142/85
[2018-07-17 05:57] LABS: BASOPHILS 0.2 % (0-2); EOSINOPHILS 0.6 % (0-7); HEMATOCRIT 33.5 % (42.0-54.0); HEMOGLOBIN 11.3 g/dL (13.5-17.5); LYMPHOCYTES 5.5 % (15-50); MCH 31.9 pg (26.0-34.0); MCHC 33.7 g/dL (31.0-37.0); MCV 94.6 fL (80.0-100.0); MEAN PLATELET VOLUME 10.6 fL (7.4-10.4); MONOCYTES 9.7 % (2-11); PLATELET COUNT 241 10x3/uL (130-400); RBC 3.54 10x6/uL (4.20-6.10); RDW 14.8 % (11.5-14.5); WBC 17.4 10x3/uL (4.8-10.8)
[2018-07-17 06:12] LABS: CALC OSMOLALITY 273 mosm/kg (275-300); CALCIUM 8.4 mg/dL (8.5-10.1); CARBON DIOXIDE 25.7 mmol/L (21.0-32.0); CHLORIDE - SERUM 102 mmol/L (98-107); CREATININE - SERUM 0.7 mg/dL (0.6-1.3); GLUCOSE 155 mg/dL (74-106); MAGNESIUM - SERUM 2.1 mg/dL (1.8-2.4); PHOSPHOROUS 3.1 mg/dL (2.5-4.9); POTASSIUM - SERUM 4.4 mmol/L (3.5-5.1); SODIUM 136 mmol/L (136-145); UREA NITROGEN 11 mg/dL (7-18); eGFR NON AFRICAN AMERICAN > 90 mL/min (90-120)
[2018-07-17 07:35] VITALS: BP 131/77
--- NOTE | 2018-07-17 09:53 | MORECARE ---
CASE MANAGEMENT DISCHARGE SUMMARY PATIENT: NILAY FORRESTER UNIT: [id number] ADM DATE: 07/02/18 AGE: 83 : 36 SEX: M ROOM/BED: D.2107 AUTHOR: LEONARDO CELAYA PHYSICIAN: REFERRING PHYSICIAN: NICHOLAS HUDSON DO DATE OF SERVICE: 07/17/18 Discharge Plan Patient Name: NILAY FORRESTER Facility: [facility]:[place] : 1935 Planned Disposition: Inpatient Rehab Anticipated Discharge Date: Discharge Date: Expected LOS: Initial Reviewer: [id number] Initial Review Date: 07/02/2018 Generated: 07/17/18 10:53 am Comments DCP- Discharge Planning Updated by [email or web address]: Alan Pan on 07/16/18 2:[address] Patient Name: NILAY FORRESTER Encounter No: [id number] : 1935 Primary Insurance: MEDICARE A & B Anticipated DC Date: Planned Disposition: Home with Home Health External Planned Provider: : [facility] DCP follow-up note: CM RECEIVED ORDER FOR [facility]. CM CALLED SARAH AT [facility] AND MICHELLE AT [facility] WHO BOTH INFORMED CM THAT PT REQUIRES THREE MIDNIGHT STAY IN ICU TO BE CONSIDERED FOR LTACH PLACEMENT. CM SPOKE TO PT IN ROOM AND DISCUSSED DISCHARGE NEEDS AND PLANS. PT REFUSED REHAB PLACEMENT, [facility] PLACEMENT AND STATES HE HAS CAN GO HOME WITH HOME HEALTH AND IF HE NEEDS TO TRANSITION TO ASSISTED LIVING, HE WILL DO THAT. PT DOES NOT QUALIFY FOR LTACH. PT REFUSES REHAB PLACEMENT. PT PLANS TO DISCHARGE HOME WITH SPOUSE AND [facility] RESUMPTION. Alan Pan. CASE MANAGEMENT DCP- Discharge Planning Updated by [id number]: Alan Pan on 07/08/18 3:[address] Patient Name: NILAY FORRESTER Admission Status: ER Accout number: [id number] Admission Date: 07-02-2018 : 1935 Admission Diagnosis:UNSPECIFIED ABDOMINAL PAIN Attending: NICHOLAS HUDSON Current LOS: 6 Anticipated DC Date: Planned Disposition: Home with Home Health Primary Insurance: MEDICARE A & B PLANNED EXTERNAL PROVIDER: [facility] Discharge Planning Comments: CM MET WITH PT IN ROOM TO DISCUSS DISCHARGE PLANNING AND NEEDS. PT REPORTS LIVING AT HOME INDEPENDENTLY WITH SPOUSE FOR WHOM HE "LOOKS AFTER". PT HAS NO MEDICAL EQUIPMENT AND NO OUTSIDE SERVICES ASSISTING IN THE HOME. CM DISCUSSED AVAILABILITY OF HOME HEALTH, REHAB SERVICES AND MEDICAL EQUIPMENT. PT DENIES DISCHARGE NEEDS OTHER THAN POSSIBLY A WALKER, HE IS NOT SURE AT THIS TIME; PT REPORTS [facility] WILL PICK HIM UP FOR DISCHARGE HOME. PT DENIES DISCHARGE NEEDS AT THIS TIME, HE MAY NEED A WALKER FOR HOME USE AT DISCHARGE, [facility] TO TRANPSPORT BACK TO INDEPENDENT LIVING APARTMENT. CM TO CONTINUE TO FOLLOW AND ASSIST IF NEEDED. Art Specialist: Alan Pan Appended by Alan Pan on 07/08/2018 16:30 CDT: CM SPOKE TO PINEDA OF [facility] WHO VERIFIED PT IS ACTIVE ON HOLD FOR HOME HEALTH; FOR RESUMPTION OF HOME HEALTH AT DISCHARGE, NOTIFY [facility] AT [phone], FAX DISCHARGE INFORMATION TO [facility] AT [phone]. CM TO MONITOR FOR ANY FURTHER MEDICAL EQUIPMENT OR REHAB NEEDS. ALAN PAN, CASE MANAGEMENT DCPIA - Discharge Planning Initial Assessment Updated by [id number]: Alan Pan on 07/08/18 4:21 pm * Is the patient Alert and Oriented? Yes * How many steps to enter\\exit or inside your home? ELEVATOR * PCP DR. PINEDO * Pharmacy [facility] ON [address] * Preadmission Environment [facility] * Other Environment [facility] * Facility Name [facility] * ADLs Independent * Equipment None * Other Equipment NO MEDICAL EQUIPMENT PROVIDER PREFERENCE * List name and contact numbers for known caregivers / representatives who currently or will assist patient after discharge: DARCY FORRESTER, SPOUSE, * Verbal permission to speak to the caregivers and representatives has been obtained from the patient. N/A * Community resources currently utilized None * Please name any agencies selected above. NONE * Additional services required to return to the preadmission environment? No * Can the patient safely return to the preadmission environment? Yes * Has this patient been hospitalized within the prior 30 days at any hospital? No Coverage Notice Reviewer: [id number] Dontae Pan Notice Issued Date-Time: 07/17/2018 9:45 Notice Type: IM Discharge Notice Notice Delivered To: Patient Relationship to Patient: Manager Integrity Name: Delivery Method: HAND - Hand Delivered Kelly Days: Prior Verbal Notification: Recipient Understood Notice: Yes Recipient Signature: Yes Med Rec Note Co-signed by Attending: Coverage Notice Comment: Last DP export: 07/16/18 2:34 p Patient Name: NILAY FORRESTER Page 38998 at 0953 All edits/amendments must be made on the electronic document DICTATION DATE: 07/17/18952 BUNDLE TIER: DEMIAN 07/17/18952 RPT#: [id number] DC DATE: STATUS: ADM IN [facility] [address] [place] [address] END OF REPORT
--- NOTE | 2018-07-17 10:00 | MORECARE ---
CASE MANAGEMENT DISCHARGE SUMMARY PATIENT: NILAY FORRESTER UNIT: [id number] ADM DATE: 07/02/18 AGE: 83 : 36 SEX: M ROOM/BED: D.2108 AUTHOR: LEONARDO CELAYA PHYSICIAN: REFERRING PHYSICIAN: NICHOLAS HUDSON DO DATE OF SERVICE: 07/17/18 Discharge Plan Patient Name: NILAY FORRESTER [facility] : 1935 Planned Disposition: Inpatient Rehab Anticipated Discharge Date: Discharge Date: Expected LOS: Initial Reviewer: [id number] Initial Review Date: 07/02/2018 Generated: 07/17/18 10:59 am Comments DCP- Discharge Planning Updated by [id number]: Alan Pan on 07/17/18 8:[address] Patient Name: NILAY FORRESTER Encounter No: [id number] : 1935 Primary Insurance: MEDICARE A & B Anticipated DC Date: Planned Disposition: Inpatient Rehab External Planned Provider: [facility] RE[facility] DCP follow-up note: CM MET WITH PT IN ROOM TO DISCUSS DISCHARGE PLANNING AND NEEDS. CM DISCUSSED ORDER FOR INPATIENT REHAB PRESCREENING. PT IS STILL UNWILLING FOR TRANSFER TO [facility]. PT STATES HE WOULD CONSIDER REHAB AT [facility] IF IT GETS HIM HOME QUICKER. PT WOULD LIKE TO SPEAK TO A REHAB TOBACCO CLASSER AND WOULD LIKE TO SPEAK TO DR. MORA ALSO. IMPORTANT MESSAGE FROM MEDICARE PROVIDED AND EXPLAINED. CM RECEIVED CALL FROM [facility] WHO INFORMED CM THAT THEY WOULD CONSIDER PT FOR LTACH ADMISSION BUT WITHOUT ICU DAYS, WOULD RECEIVE DECREASED REVENUE FOR PT'S CARE AND ADMISSION WOULD DEPEND ON WHAT PT NEEDS. CM EXPLAINED THAT PT HAS DECLINED LTACH SCREENING. CM WAITING ON INPATIENT REHAB PRESCREENING AND ADMISSION DETERMINATION FROM [facility] INPATIENT REH[facility]. PT WANTS TO SPEAK TO SOMEONE FROM REHAB AND DR. MORA. Alan Pan, CASE MANAGEMENT DCP- Discharge Planning Updated by [id number]: Alan Pan on 07/16/18 2:[address] Patient Name: NILAY FORRESTER Encounter No: [id number] : 1935 Primary Insurance: MEDICARE A & B Anticipated DC Date: Planned Disposition: Home with Home Health External Planned Provider: : [facility] DCP follow-up note: CM RECEIVED ORDER FOR [facility]. CM CALLED SARAH AT [facility] AND MICHELLE AT [facility] WHO BOTH INFORMED CM THAT PT REQUIRES THREE MIDNIGHT STAY IN ICU TO BE CONSIDERED FOR LTACH PLACEMENT. CM SPOKE TO PT IN ROOM AND DISCUSSED DISCHARGE NEEDS AND PLANS. PT REFUSED REHAB PLACEMENT, RESIDENTIAL PLACEMENT AND STATES HE HAS CAN GO HOME WITH HOME HEALTH AND IF HE NEEDS TO TRANSITION TO ASSISTED LIVING, HE WILL DO THAT. PT DOES NOT QUALIFY FOR LTACH. PT REFUSES REHAB PLACEMENT. PT PLANS TO DISCHARGE HOME WITH SPOUSE AND [facility] RESUMPTION. Alan Pan. CASE MANAGEMENT DCP- Discharge Planning Updated by [id number]: Alan Pan on 07/08/18 3:[address] Patient Name: NILAY FORRESTER Admission Status: ER Accout number: [id number] Admission Date: 07-02-2018 : 1935 Admission Diagnosis:UNSPECIFIED ABDOMINAL PAIN Attending: NICHOLAS HUDSON Current LOS: 6 Anticipated DC Date: Planned Disposition: Home with Home Health Primary Insurance: MEDICARE A & B PLANNED EXTERNAL PROVIDER: [facility] Discharge Planning Comments: CM MET WITH PT IN ROOM TO DISCUSS DISCHARGE PLANNING AND NEEDS. PT REPORTS LIVING AT HOME INDEPENDENTLY WITH SPOUSE FOR WHOM HE "LOOKS AFTER". PT HAS NO MEDICAL EQUIPMENT AND NO OUTSIDE SERVICES ASSISTING IN THE HOME. CM DISCUSSED AVAILABILITY OF HOME HEALTH, REHAB SERVICES AND MEDICAL EQUIPMENT. PT DENIES DISCHARGE NEEDS OTHER THAN POSSIBLY A WALKER, HE IS NOT SURE AT THIS TIME; PT REPORTS [facility] WILL PICK HIM UP FOR DISCHARGE HOME. PT DENIES DISCHARGE NEEDS AT THIS TIME, HE MAY NEED A WALKER FOR HOME USE AT DISCHARGE, [facility] TO TRANPSPORT BACK TO INDEPENDENT LIVING APARTMENT. CM TO CONTINUE TO FOLLOW AND ASSIST IF NEEDED. Cigar Machine Feeder: Alan Pan Appended by Alan Pan on 07/08/2018 16:30 CDT: CM SPOKE TO PINEDA OF [facility] WHO VERIFIED PT IS ACTIVE ON HOLD FOR HOME HEALTH; FOR RESUMPTION OF HOME HEALTH AT DISCHARGE, NOTIFY [facility] AT [phone], FAX DISCHARGE INFORMATION TO [facility] AT [phone]. CM TO MONITOR FOR ANY FURTHER MEDICAL EQUIPMENT OR REHAB NEEDS. ALAN PAN, CASE MANAGEMENT DCPIA - Discharge Planning Initial Assessment Updated by [id number]: Alan Pan on 07/08/18 4:21 pm * Is the patient Alert and Oriented? Yes * How many steps to enter\\exit or inside your home? ELEVATOR * PCP DR. PINEDO * Pharmacy [facility] ON [address] * Preadmission Environment Independent [facility] Apartment * Other Environment [facility] * Facility Name [facility] * ADLs Independent * Equipment None * Other Equipment NO MEDICAL EQUIPMENT PROVIDER PREFERENCE * List name and contact numbers for known caregivers / representatives who currently or will assist patient after discharge: DARCY FORRESTER, SPOUSE, * Verbal permission to speak to the caregivers and representatives has been obtained from the patient. N/A * Community resources currently utilized None * Please name any agencies selected above. NONE * Additional services required to return to the preadmission environment? No * Can the patient safely return to the preadmission environment? Yes * Has this patient been hospitalized within the prior 30 days at any hospital? No Coverage Notice Reviewer: [id number] - Alan Pan Notice Issued Date-Time: 07/17/2018 9:45 Notice Type: IM Discharge Notice Notice Delivered To: Patient Relationship to Patient: Elementary Substitute Teacher Name: Delivery Method: HAND - Hand Delivered Kelly Days: Prior Verbal Notification: Recipient Understood Notice: Yes Recipient Signature: Yes Med Rec Note Co-signed by Attending: Coverage Notice Comment: Last DP export: 07/17/18 8:53 a Patient Name: NILAY FORRESTER Page 25980 at 1000 All edits/amendments must be made on the electronic document DICTATION DATE: 07/17/18958 CHRONIC DISEASE MANAGER: DEMIAN 07/17/18958 RPT#: [id number] DC DATE: STATUS: ADM IN [facility] [address] [place] [address] END OF REPORT
[2018-07-17 11:30] VITALS: BP 143/74
[2018-07-17 11:44] VITALS: BP 143/74
--- NOTE | 2018-07-17 17:09 | MORECARE ---
CASE MANAGEMENT DISCHARGE SUMMARY PATIENT: NILAY FORRESTER UNIT: [id number] ADM DATE: 07/02/18 AGE: 83 : 36 SEX: M ROOM/BED: D.2104 AUTHOR: LEONARDO CELAYA PHYSICIAN: REFERRING PHYSICIAN: NICHOLAS HUDSON DO DATE OF SERVICE: 07/17/18 Discharge Plan Patient Name: NILAY FORRESTER [facility] [facility] 1935 Planned Disposition: Inpatient Rehab Anticipated Discharge Date: Discharge Date: Expected LOS: Initial Reviewer: [id number] Initial Review Date: 07/02/2018 Generated: 07/17/18 6:08 pm Comments DCP- Discharge Planning Updated by [id number]: Alan Pan on 07/17/18 8:[address] Patient Name: NILAY FORRESTER Encounter No: [id number] : 1935 Primary Insurance: MEDICARE A & B Anticipated DC Date: Planned Disposition: Inpatient Rehab External Planned Provider: [facility] DCP follow-up note: CM MET WITH PT IN ROOM TO DISCUSS DISCHARGE PLANNING AND NEEDS. CM DISCUSSED ORDER FOR INPATIENT REHAB PRESCREENING. PT IS STILL UNWILLING FOR [facility]SFER [facility]. PT STATES HE WOULD CONSIDER REHAB AT [place] IF IT GETS HIM HOME QUICKER. PT WOULD LIKE TO SPEAK TO A REHAB PATTERN MAKER AND WOULD LIKE TO SPEAK TO DR. MORA ALSO. IMPORTANT MESSAGE FROM MEDICARE PROVIDED AND EXPLAINED. CM RECEIVED CALL FROM [facility] WHO INFORMED CM THAT THEY WOULD CONSIDER PT FOR LTACH ADMISSION BUT WITHOUT ICU DAYS, WOULD RECEIVE DECREASED REVENUE FOR PT'S CARE AND ADMISSION WOULD DEPEND ON WHAT PT NEEDS. CM EXPLAINED THAT PT HAS DECLINED LTACH SCREENING. CM WAITING ON INPATIENT REHAB PRESCREENING AND ADMISSION DETERMINATION FROM [facility] IN[facility]. PT WANTS TO SPEAK TO SOMEONE FROM REHAB AND DR. MORA. Alan Pan, CASE MANAGEMENT DCP- Discharge Planning Updated by [id number]: Alan Pan on 07/16/18 2:[address] Patient Name: NILAY FORRESTER Encounter No: [id number] : 1935 Primary Insurance: MEDICARE A & B Anticipated DC Date: Planned Disposition: Home with Home Health External Planned Provider: : [facility] DCP follow-up note: CM RECEIVED [facility]. CM CALLED SARAH AT [facility] AND MICHELLE AT [facility] WHO BOTH INFORMED CM THAT PT REQUIRES THREE MIDNIGHT STAY IN ICU TO BE CONSIDERED FOR LTACH PLACEMENT. CM SPOKE TO PT IN ROOM AND DISCUSSED DISCHARGE NEEDS AND PLANS. PT REFUSED REHAB PLACEMENT, GROUP HOME PLACEMENT AND STATES HE HAS CAN GO HOME WITH HOME HEALTH AND IF HE NEEDS TO TRANSITION TO ASSISTED LIVING, HE WILL DO THAT. PT DOES NOT QUALIFY FOR LTACH. PT REFUSES REHAB PLACEMENT. PT PLANS TO DISCHARGE HOME WITH SP[facility]SE AND [facility]ALTH RESUMPTION. Alan Pan. CASE MANAGEMENT DCP- Discharge Planning Updated by [id number]: Alan Pan on 07/08/18 3:[address] Patient Name: NILAY FORRESTER Admission Status: ER Accout number: [id number] Admission Date: 07-02-2018 : 1935 Admission Diagnosis:UNSPECIFIED ABDOMINAL PAIN Attending: NICHOLAS HUDSON Current LOS: 6 Anticipated DC Date: Planned Disposition: Home with Home Health Primary Insurance: MEDICARE A & B PLANNED EXTERNAL PROVIDER: [facility] Discharge Planning Comments: CM MET WITH PT IN ROOM TO DISCUSS DISCHARGE PLANNING AND NEEDS. PT REPORTS LIVING AT HOME INDEPENDENTLY WITH SPOUSE FOR WHOM HE "LOOKS AFTER". PT HAS NO MEDICAL EQUIPMENT AND NO OUTSIDE SERVICES ASSISTING IN THE HOME. CM DISCUSSED AVAILABILITY OF HOME HEALTH, REHAB SERVICES AND MEDICAL EQUIPMENT. PT DENIES DISCHARGE NEEDS OTHER THAN POSSIBLY A WALKER, HE IS NOT SURE AT THIS TIME; PT REPORTS [facility] WILL PICK HIM UP FOR DISCHARGE HOME. PT DENIES DISCHARGE NEEDS AT THIS TIME, HE MAY NEED A WALKER FOR HOME USE AT DISCHARGE, [facility] TO TRANPSPORT BACK TO INDEPENDENT LIVING APARTMENT. CM TO CONTINUE TO FOLLOW AND ASSIST IF NEEDED. Automobile Radiator Mechanic: Alan Pan Appended by Alan Pan on 07/08/2018 16:30 CDT: CM SPOKE TO PINEDA OF [facility] WHO VERIFIED PT IS ACTIVE ON HOLD FOR HOME HEALTH; FOR RESUMPTION OF HOME HEALTH AT DISCHARGE, NOTIFY [facility] AT [phone], FAX DISCHARGE INFORMATION TO [facility] AT [phone]. CM TO MONITOR FOR ANY FURTHER MEDICAL EQUIPMENT OR REHAB NEEDS. ALAN PAN, CASE MANAGEMENT DCPIA - Discharge Planning Initial Assessment Updated by [id number]: Alan Pan on 07/17/18 4:59 pm * Is the patient Alert and Oriented? Yes * How many steps to enter\\exit or inside your home? ELEVATOR * PCP DR. PINEDO * Pharmacy [facility] [address] * Preadmission Environment Independent [facility] Apartment * Other Environment [facility] * Facility Name [facility] * ADLs Independent * Equipment None * Other Equipment NO MEDICAL EQUIPMENT PROVIDER PREFERENCE * List name and contact numbers for known caregivers / representatives who currently or will assist patient after discharge: DARCY FORRESTER, SPOUSE, AKIN FORRESTER, SON, * Verbal permission to speak to the caregivers and representatives has been obtained from the patient. N/A * Community resources currently utilized None * Please name any agencies selected above. NONE * Additional services required to return to the preadmission environment? No * Can the patient safely return to the preadmission environment? Yes * Has this patient been hospitalized within the prior 30 days at any hospital? No Coverage Notice Reviewer: [id number] - Alan Pan Notice Issued Date-Time: 07/17/2018 9:45 Notice Type: IM Discharge Notice Notice Delivered To: Patient Relationship to Patient: Dipper Clock And Watch Hands Name: Delivery Method: HAND - Hand Delivered Kelly Days: Prior Verbal Notification: Recipient Understood Notice: Yes Recipient Signature: Yes Med Rec Note Co-signed by Attending: Coverage Notice Comment: Last DP export: 07/17/18 9:00 a Patient Name: NILAY FORRESTER Page [id number] at 1709 All edits/amendments must be made on the electronic document DICTATION DATE: 07/17/181707 SATELLITE TELEVISION INSTALLER: DEMIAN 07/17/181707 RPT#: [id number] DC DATE: STATUS: ADM IN [facility] [address] [place] [address] END OF REPORT
[2018-07-17 20:00] VITALS: BP 145/81
[2018-07-18 04:00] VITALS: BP 122/74
[2018-07-18 05:53] LABS: BASOPHILS 0.2 % (0-2); EOSINOPHILS 0.6 % (0-7); HEMOGLOBIN 10.3 g/dL (13.5-17.5); IMMATURE GRANULOCYTES 0.8 % (0-5); LYMPHOCYTES 5.3 % (15-50); MCH 31.6 pg (26.0-34.0); MCHC 33.2 g/dL (31.0-37.0); MCV 95.1 fL (80.0-100.0); MEAN PLATELET VOLUME 10.5 fL (7.4-10.4); MONOCYTES 10.9 % (2-11); NEUTROPHILS 82.2 % (40-80); RBC 3.26 10x6/uL (4.20-6.10); WBC 15.5 10x3/uL (4.8-10.8)
[2018-07-18 05:57] LABS: PLATELET COUNT 178 10x3/uL (130-400)
[2018-07-18 06:23] LABS: ALKALINE PHOSPHATASE 51 U/L (46-116); ALT (SGPT) 10 U/L (10-68); BILIRUBIN - TOTAL 0.48 mg/dL (0.2-1.3); CALC OSMOLALITY 273 mosm/kg (275-300); CALCIUM 8.2 mg/dL (8.5-10.1); CARBON DIOXIDE 25.4 mmol/L (21.0-32.0); CHLORIDE - SERUM 103 mmol/L (98-107); CREATININE - SERUM 0.8 mg/dL (0.6-1.3); GLUCOSE 144 mg/dL (74-106); POTASSIUM - SERUM 4.3 mmol/L (3.5-5.1); PROTEIN - SERUM 6.5 g/dL (6.4-8.2); SODIUM 136 mmol/L (136-145); UREA NITROGEN 11 mg/dL (7-18); eGFR NON AFRICAN AMERICAN > 90 mL/min (90-120)
[2018-07-18 07:44] VITALS: BP 134/84
[2018-07-18 08:11] LABS: MAGNESIUM - SERUM 2.3 mg/dL (1.8-2.4)
[2018-07-18 08:12] LABS: PHOSPHOROUS 4.8 mg/dL (2.5-4.9)
[2018-07-18 11:18] VITALS: BP 139/79
--- NOTE | 2018-07-18 12:31 | MORECARE ---
CASE MANAGEMENT DISCHARGE SUMMARY PATIENT: NILAY FORRESTER UNIT: [id number] ADM DATE: 07/02/18 AGE: 83 : 36 SEX: M ROOM/BED: D.2104 AUTHOR: BELIA,DOC PHYSICIAN: REFERRING PHYSICIAN: NICHOLAS HUDSON DO DATE OF SERVICE: 07/18/18 Discharge Plan Patient Name: NILAY FORRESTER Facility: [facility]:[place] : 1935 Planned Disposition: Inpatient Rehab Anticipated Discharge Date: Discharge Date: Expected LOS: Initial Reviewer: [id number] Initial Review Date: 07/02/2018 Generated: 07/18/18 1:31 pm Comments DCP- Discharge Planning Updated by [id number]: Zehra Ruiz on 07/18/18 11:29 am NATALIYA AWAN WITH [facility] CAME UP AND SPOKE WITH THE PATIENT ABOUT DISCHARGING TO REHAB. PER HER THE PATIENT STATED HE DID NOT THINK HE COULD TOLERATE 3 HOURS OF THERAPY AND HE WAS JUST GOING TO GO HOME. I WENT IN AND TALKED WITH THE PATIENT. I EXPLAINED THAT HE WAS TOO WEAK FOR US TO SEND HOME RIGHT NOW. I EXPLAINED THAT WE NEEDED TO WORK ON GETTING HIM STRONGER BEFORE HE GOES HOME AND THAT ON THE FLOOR THE THERAPIST CAN'T WORK WITH HIM MUCH THEY CAN IN REHAB TO GET HIM BETTER. HE TOLD ME HIS HAS HAD 2 TIA'S SINCE HE WAS ADMITTED TO THE HOSPITAL AND HE NEEDED TO BE WITH HER BECAUSE SHE WAS WORRIED TO . I ASKED HOW HE WAS GOING TO BE OF HELP TO HER WHEN HE HIMSELF IS REQUIRING A LOT OF HELP. HE COULD NOT ANSWER THIS QUESTION. I ASKED IF HE WAS GOING TO BE ABLE TO GET HIMSELF AND HIS OUT OF THE HOUSE IF IT CAUGHT ON FIRE, AND AGAIN HE DID NOT ANSWER. I EXPLAINED THAT WE NEEDED TO LOOK OUT FOR HIS SAFETY AND HERS, AND RIGHT NOW IT WAS NOT SAFE TO GO HOME. I DISCUSSED GOING TO A [facility] FOR [facility] IF HE DID NOT FEEL THAT HE COULD DO 3 HOURS OF THERAPY, AND THIS IS NOT AN OPTION FOR HIM. HE ASKED IF HIS COULD STAY UP HERE WITH HIM. I EXPLAINED THAT THEY HAVE ROOM MATES DOWN STAIRS AND THAT MAY NOT BE AN OPTION, BUT IF HE STAYED IN THE ROOM HE WAS IN, SHE COULD STAY IN THE RECLINER AT BEDSIDE, BUT SHE WOULD HAVE TO TAKE CARE OF HERSELF AND WOULD BE RESPONSIBLE FOR HER OWN MEALS WHILE SHE WAS HERE. HE ASKED ME TO SEE. I CALLED AND SPOKE WITH [employer], SHE WILL HAVE TO SEE IF IT WOULD BE POSSIBLE. I AM WAITING TO SEE WHAT SHE SAYS BEFORE I GO AND TALK WITH THE PATIENT. THE PATIENT IS AWARE THAT HE WILL NOT GET DISCHARGED HOME TODAY IF HE REFUSES TO GO ANYWHERE BUT HOME, UNLESS HE LEAVES AGAINST MEDICAL ADVICE SECONDARY TO THE SAFETY ISSUES. HE HAS STATED THAT HE UNDERSTANDS. DCP- Discharge Planning Updated by [id number]: Gadiel Pan on 07/17/18 8:[address] Patient Name: NILAY FORRESTER Encounter No: [id number] : 1935 Primary Insurance: MEDICARE A & B Anticipated DC Date: Planned Disposition: Inpatient Rehab External Planned Provider: [facility] INPAT[facility] REH[facility] DCP follow-up note: CM MET WITH PT IN ROOM TO DISCUSS DISCHARGE PLANNING AND NEEDS. CM DISCUSSED ORDER FOR INPATIENT REHAB PRESCREENING. PT IS STILL UNWILLING FOR TRANSFER TO [facility]. PT STATES HE WOULD CONSIDER REHAB AT [place] IF IT GETS HIM HOME QUICKER. PT WOULD LIKE TO SPEAK TO A REHAB PROFESSOR OF BIBLICAL STUDIES AND WOULD LIKE TO SPEAK TO DR. MORA ALSO. IMPORTANT MESSAGE FROM MEDICARE PROVIDED AND EXPLAINED. CM RECEIVED CALL FROM SARAH OF [facility] WHO INFORMED CM THAT THEY WOULD CONSIDER PT FOR LTACH ADMISSION BUT WITHOUT ICU DAYS, WOULD RECEIVE DECREASED REVENUE FOR PT'S CARE AND ADMISSION WOULD DEPEND ON WHAT PT NEEDS. CM EXPLAINED THAT PT HAS DECLINED LTACH SCREENING. CM WAITING ON INPATIENT REHAB PRESCREENING AND ADMISSION DETERMINATION FROM [facility] INPAT[facility]. PT WANTS TO SPEAK TO SOMEONE FROM REHAB AND DR. MORA. Gadiel Pan, CASE MANAGEMENT DCP- Discharge Planning Updated by [id number]: Gadiel Pan on 07/16/18 2:[address] Patient Name: NILAY FORRESTER Encounter No: [id number] : 1935 Primary Insurance: MEDICARE A & B Anticipated DC Date: Planned Disposition: Home with Home Health External Planned Provider: : [facility] DCP follow-up note: CM RECEIVED ORDER FOR [facility]. CM CALLED SARAH AT [facility] AND MICHELLE AT [facility] WHO BOTH INFORMED CM THAT PT REQUIRES THREE MIDNIGHT STAY IN ICU TO BE CONSIDERED FOR LTACH PLACEMENT. CM SPOKE TO PT IN ROOM AND DISCUSSED DISCHARGE NEEDS AND PLANS. PT REFUSED REHAB PLACEMENT, [facility] PLACEMENT AND STATES HE HAS CAN GO HOME WITH HOME HEALTH AND IF HE NEEDS TO TRANSITION TO ASSISTED LIVING, HE WILL DO THAT. PT DOES NOT QUALIFY FOR LTACH. PT REFUSES REHAB PLACEMENT. PT PLANS TO DISCHARGE HOME WITH SPOUSE AND [facility] HEALTH RESUMPTION. Gadiel Pan. CASE MANAGEMENT DCP- Discharge Planning Updated by [id number]: Gadiel Pan on 07/08/18 3:[address] Patient Name: NILAY FORRESTER Admission Status: ER Accout number: [id number] Admission Date: 07-02-2018 : 1935 Admission Diagnosis:UNSPECIFIED ABDOMINAL PAIN Attending: NICHOLAS HUDSON Current LOS: 6 Anticipated DC Date: Planned Disposition: Home with Home Health Primary Insurance: MEDICARE A & B PLANNED EXTERNAL PROVIDER: [facility] Discharge Planning Comments: CM MET WITH PT IN ROOM TO DISCUSS DISCHARGE PLANNING AND NEEDS. PT REPORTS LIVING AT HOME INDEPENDENTLY WITH SPOUSE FOR WHOM HE "LOOKS AFTER". PT HAS NO MEDICAL EQUIPMENT AND NO OUTSIDE SERVICES ASSISTING IN THE HOME. CM DISCUSSED AVAILABILITY OF HOME HEALTH, REHAB SERVICES AND MEDICAL EQUIPMENT. PT DENIES DISCHARGE NEEDS OTHER THAN POSSIBLY A WALKER, HE IS NOT SURE AT THIS TIME; PT REPORTS [facility] WILL PICK HIM UP FOR DISCHARGE HOME. PT DENIES DISCHARGE NEEDS AT THIS TIME, HE MAY NEED A WALKER FOR HOME USE AT DISCHARGE, [facility] TO TRANPSPORT BACK TO INDEPENDENT LIVING APARTMENT. CM TO CONTINUE TO FOLLOW AND ASSIST IF NEEDED. Software Engineering Analyst: Gadiel Pan Appended by Gadiel Pan on 07/08/2018 16:30 CDT: CM SPOKE TO PINEDA OF [facility] WHO VERIFIED PT IS ACTIVE ON HOLD FOR HOME HEALTH; FOR RESUMPTION OF HOME HEALTH AT DISCHARGE, NOTIFY [facility] AT [phone], FAX DISCHARGE INFORMATION TO [facility] AT [phone]. CM TO MONITOR FOR ANY FURTHER MEDICAL EQUIPMENT OR REHAB NEEDS. GADIEL PAN, CASE MANAGEMENT DCPIA - Discharge Planning Initial Assessment Updated by [id number]: Gadiel Pan on 07/17/18 4:59 pm * Is the patient Alert and Oriented? Yes * How many steps to enter\\exit or inside your home? ELEVATOR * PCP DR. PINEDO * Pharmacy [facility] [address] * Preadmission Environment Independent [facility] Apartment * Other Environment [facility] * Facility Name [facility] * ADLs Independent * Equipment None * Other Equipment NO MEDICAL EQUIPMENT PROVIDER PREFERENCE * List name and contact numbers for known caregivers / representatives who currently or will assist patient after discharge: DARCY FORRESTER, SPOUSE, AKIN FORRESTER, SON, * Verbal permission to speak to the caregivers and representatives has been obtained from the patient. N/A * Community resources currently utilized None * Please name any agencies selected above. NONE * Additional services required to return to the preadmission environment? No * Can the patient safely return to the preadmission environment? Yes * Has this patient been hospitalized within the prior 30 days at any hospital? No Coverage Notice Reviewer: [id number] Dontae Pan Notice Issued Date-Time: 07/17/2018 9:45 Notice Type: IM Discharge Notice Notice Delivered To: Patient Relationship to Patient: Mill Roll Rewinder Name: Delivery Method: HAND - Hand Delivered Kelly Days: Prior Verbal Notification: Recipient Understood Notice: Yes Recipient Signature: Yes Med Rec Note Co-signed by Attending: Coverage Notice Comment: Last DP export: 07/17/18 4:09 p Patient Name: NILAY FORRESTER Page [phone] at 1231 All edits/amendments must be made on the electronic document DICTATION DATE: 07/18/18 1231 POLICE OR PATROL PARK OFFICER: DEMIAN 07/18/18 1231 RPT#: [id number] DC DATE: STATUS: ADM IN [facility] [address] [place] [address] END OF REPORT
[2018-07-18 16:12] VITALS: BP 146/85
[2018-07-18] MEDS ORDERED: FLAGYL 500500 MG/100 IV (17:05)
[2018-07-18] MEDS ORDERED: FLOMAX0.4 MG PO (17:05)
[2018-07-18] MEDS ORDERED: Levaquin PREMIX IV (17:05)
[2018-07-18] MEDS ORDERED: HYDROCODON-ACE1 EAC7 PO (17:05)
[2018-07-18] MEDS ORDERED: PEPCID PO (17:06)
[2018-07-18] MEDS ORDERED: FLORAJEN3 CAPS460 MG PO (17:06)
--- NOTE | 2018-07-21 08:44 | MORECARE ---
CASE MANAGEMENT DISCHARGE SUMMARY PATIENT: NILAY FORRESTER UNIT: [id number] ADM DATE: 07/02/18 AGE: 83 : [birth year] SEX: M ROOM/BED: D.2100 AUTHOR: LEONARDO CELAYA PHYSICIAN: REFERRING PHYSICIAN: NICHOLAS HUDSON DO DATE OF SERVICE: 07/21/18 Discharge Plan Patient Name: NILAY FORRESTER Facility: [facility]:[place] : 1935 Planned Disposition: Inpatient Rehab Anticipated Discharge Date: Discharge Date: 07/18/2018 Expected LOS: Initial Reviewer: [id number] Initial Review Date: 07/02/2018 Generated: 07/21/18 9:44 am Comments DCP- Discharge Planning Updated by [id number]: Zehra Ruiz on 07/18/18 11:29 am NATALIYA AWAN WITH [facility] CAME UP AND SPOKE WITH THE PATIENT ABOUT DISCHARGING TO REHAB. PER HER THE PATIENT STATED HE DID NOT THINK HE COULD TOLERATE 3 HOURS OF THERAPY AND HE WAS JUST GOING TO GO HOME. I WENT IN AND TALKED WITH THE PATIENT. I EXPLAINED THAT HE WAS TOO WEAK FOR US TO SEND HOME RIGHT NOW. I EXPLAINED THAT WE NEEDED TO WORK ON GETTING HIM STRONGER BEFORE HE GOES HOME AND THAT ON THE FLOOR THE THERAPIST CAN'T WORK WITH HIM MUCH THEY CAN IN REHAB TO GET HIM BETTER. HE TOLD ME HIS HAS HAD 2 TIA'S SINCE HE WAS ADMITTED TO THE HOSPITAL AND HE NEEDED TO BE WITH HER BECAUSE SHE WAS WORRIED TO . I ASKED HOW HE WAS GOING TO BE OF HELP TO HER WHEN HE HIMSELF IS REQUIRING A LOT OF HELP. HE COULD NOT ANSWER THIS QUESTION. I ASKED IF HE WAS GOING TO BE ABLE TO GET HIMSELF AND HIS OUT OF THE HOUSE IF IT CAUGHT ON FIRE, AND AGAIN HE DID NOT ANSWER. I EXPLAINED THAT WE NEEDED TO LOOK OUT FOR HIS SAFETY AND HERS, AND RIGHT NOW IT WAS NOT SAFE TO GO HOME. I DISCUSSED GOING TO A SNF FOR SNF IF HE DID NOT FEEL THAT HE COULD DO 3 HOURS OF THERAPY, AND THIS IS NOT AN OPTION FOR HIM. HE ASKED IF HIS COULD STAY UP HERE WITH HIM. I EXPLAINED THAT THEY HAVE ROOM MATES DOWN STAIRS AND THAT MAY NOT BE AN OPTION, BUT IF HE STAYED IN THE ROOM HE WAS IN, SHE COULD STAY IN THE RECLINER AT BEDSIDE, BUT SHE WOULD HAVE TO TAKE CARE OF HERSELF AND WOULD BE RESPONSIBLE FOR HER OWN MEALS WHILE SHE WAS HERE. HE ASKED ME TO SEE. I CALLED AND SPOKE WITH [employer], SHE WILL HAVE TO SEE IF IT WOULD BE POSSIBLE. I AM WAITING TO SEE WHAT SHE SAYS BEFORE I GO AND TALK WITH THE PATIENT. THE PATIENT IS AWARE THAT HE WILL NOT GET DISCHARGED HOME TODAY IF HE REFUSES TO GO ANYWHERE BUT HOME, UNLESS HE LEAVES AGAINST MEDICAL ADVICE SECONDARY TO THE SAFETY ISSUES. HE HAS STATED THAT HE UNDERSTANDS. DCP- Discharge Planning Updated by [id number]: Gadiel Pan on 07/17/18 8:[address] Patient Name: NILAY FORRESTER Encounter No: [id number] : 1935 Primary Insurance: MEDICARE A & B Anticipated DC Date: Planned Disposition: Inpatient Rehab External Planned Provider: [facility] IN[facility]IENT [facility] DCP follow-up note: CM MET WITH PT IN ROOM TO DISCUSS DISCHARGE PLANNING AND NEEDS. CM DISCUSSED ORDER FOR INPATIENT REHAB PRESCREENING. PT IS STILL UNWILLING FOR TRANSFER TO [facility]. PT STATES HE WOULD CONSIDER REHAB AT [facility] IF IT GETS HIM HOME QUICKER. PT WOULD LIKE TO SPEAK TO A REHAB ASSIGNMENT EDITOR AND WOULD LIKE TO SPEAK TO DR. MORA ALSO. IMPORTANT MESSAGE FROM MEDICARE PROVIDED AND EXPLAINED. CM RECEIVED CALL FROM SARAH OF [facility] WHO INFORMED CM THAT THEY WOULD CONSIDER PT FOR LTACH ADMISSION BUT WITHOUT ICU DAYS, WOULD RECEIVE DECREASED REVENUE FOR PT'S CARE AND ADMISSION WOULD DEPEND ON WHAT PT NEEDS. CM EXPLAINED THAT PT HAS DECLINED LTACH SCREENING. CM WAITING ON INPATIENT REHAB PRESCREENING AND ADMISSION DETERMINATION FROM [facility] INPATIENT REHAB. PT WANTS TO SPEAK TO SOMEONE FROM REHAB AND DR. MORA. Gadiel Pan, CASE MANAGEMENT DCP- Discharge Planning Updated by [id number]: Gadiel Pan on 07/16/18 2:[address] Patient Name: NILAY FORRESTER Encounter No: [id number] : 1935 Primary Insurance: MEDICARE A & B Anticipated DC Date: Planned Disposition: Home with Home Health External Planned Provider: : [facility] DCP follow-up note: CM RECEIVED ORDER FOR [facility]. CM CALLED SARAH AT [facility] AND MICHELLE AT [facility] WHO BOTH INFORMED CM THAT PT REQUIRES THREE MIDNIGHT STAY IN ICU TO BE CONSIDERED FOR LTACH PLACEMENT. CM SPOKE TO PT IN ROOM AND DISCUSSED DISCHARGE NEEDS AND PLANS. PT REFUSED REHAB PLACEMENT, PENITENTIARY PLACEMENT AND STATES HE HAS CAN GO HOME WITH HOME HEALTH AND IF HE NEEDS TO TRANSITION TO ASSISTED LIVING, HE WILL DO THAT. PT DOES NOT QUALIFY FOR LTACH. PT REFUSES REHAB PLACEMENT. PT PLANS TO DISCHARGE HOME WITH SPOUSE AND [facility] RESUMPTION. Gadiel Pan. CASE MANAGEMENT DCP- Discharge Planning Updated by [id number]: Gadiel Pan on 07/08/18 3:[address] Patient Name: NILAY FORRESTER Admission Status: ER Accout number: [id number] Admission Date: 07-02-2018 : 1935 Admission Diagnosis:UNSPECIFIED ABDOMINAL PAIN Attending: NICHOLAS HUDSON Current LOS: 6 Anticipated DC Date: Planned Disposition: Home with Home Health Primary Insurance: MEDICARE A & B PLANNED EXTERNAL PROVIDER: [facility] Discharge Planning Comments: CM MET WITH PT IN ROOM TO DISCUSS DISCHARGE PLANNING AND NEEDS. PT REPORTS LIVING AT HOME INDEPENDENTLY WITH SPOUSE FOR WHOM HE "LOOKS AFTER". PT HAS NO MEDICAL EQUIPMENT AND NO OUTSIDE SERVICES ASSISTING IN THE HOME. CM DISCUSSED AVAILABILITY OF HOME HEALTH, REHAB SERVICES AND MEDICAL EQUIPMENT. PT DENIES DISCHARGE NEEDS OTHER THAN POSSIBLY A WALKER, HE IS NOT SURE AT THIS TIME; PT REPORTS [facility] WILL PICK HIM UP FOR DISCHARGE HOME. PT DENIES DISCHARGE NEEDS AT THIS TIME, HE MAY NEED A WALKER FOR HOME USE AT DISCHARGE, [facility] TO TRANPSPORT BACK TO INDEPENDENT LIVING APARTMENT. CM TO CONTINUE TO FOLLOW AND ASSIST IF NEEDED. Sql Ssrs Ssis Developer: Gadiel Pan Appended by Gadiel Pan on 07/08/2018 16:30 CDT: CM SPOKE TO PINEDA OF [facility] WHO VERIFIED PT IS ACTIVE ON HOLD FOR HOME HEALTH; FOR RESUMPTION OF HOME HEALTH AT DISCHARGE, NOTIFY [facility] AT [phone], FAX DISCHARGE INFORMATION TO [facility] AT [phone]. CM TO MONITOR FOR ANY FURTHER MEDICAL EQUIPMENT OR REHAB NEEDS. GADIEL PAN, CASE MANAGEMENT DCPIA - Discharge Planning Initial Assessment Updated by [id number]: Gadiel Pan on 07/17/18 4:59 pm * Is the patient Alert and Oriented? Yes * How many steps to enter\\exit or inside your home? ELEVATOR * PCP DR. PINEDO * [facility] [address] * Preadmission Environment Independent [facility]ment * Other Environment [facility] * Facility Name [facility] * ADLs Independent * Equipment None * Other Equipment NO MEDICAL EQUIPMENT PROVIDER PREFERENCE * List name and contact numbers for known caregivers / representatives who currently or will assist patient after discharge: DARCY FORRESTER, SPOUSE, AKIN FORRESTER, SON, * Verbal permission to speak to the caregivers and representatives has been obtained from the patient. N/A * Community resources currently utilized None * Please name any agencies selected above. NONE * Additional services required to return to the preadmission environment? No * Can the patient safely return to the preadmission environment? Yes * Has this patient been hospitalized within the prior 30 days at any hospital? No Coverage Notice Reviewer: [id number] Dontae Pan Notice Issued Date-Time: 07/17/2018 9:45 Notice Type: IM Discharge Notice Notice Delivered To: Patient Relationship to Patient: At Home Independent Call Center Agent Name: Delivery Method: HAND - Hand Delivered Kelly Days: Prior Verbal Notification: Recipient Understood Notice: Yes Recipient Signature: Yes Med Rec Note Co-signed by Attending: Coverage Notice Comment: Last DP export: 07/18/18 11:31 a Patient Name: NILAY FORRESTER Page [id number] at 0844 All edits/amendments must be made on the electronic document DICTATION DATE: 07/21/18843 SHOP CLERK: DEMIAN 07/21/1844 RPT#: [id number] DC DATE:07/18/18 STATUS: DIS IN [facility] [address] [place] [address] END OF REPORT
== END 2018-07-18 18:44 | DRG 417 ==
LOC: D.ER 11:29 → D.M2 14:18
PROVIDERS: Emergency Medicine; Family Medicine; Internal Medicine Nephrology; Radiology Diagnostic Radiology; Surgery; ADMIT Family Medicine; ATTEND Family Medicine
PROC: 0FT44ZZ Resection of Gallbladder, Percutaneous Endoscopic Approach (ICD-10-PCS; principal; 2018-07-03 12:30)
PROC: 0F9430Z Drainage of Gallbladder with Drainage Device, Percutaneous Approach (ICD-10-PCS; 2018-07-09)
PROC: 05HY33Z Insertion of Infusion Device into Upper Vein, Percutaneous Approach (ICD-10-PCS; 2018-07-15)
DX: K80.01 Calculus of gallbladder with acute cholecystitis with obstruction (principal); K85.10 Biliary acute pancreatitis without necrosis or infection; I10 Essential (primary) hypertension; E78.5 Hyperlipidemia, unspecified; C61 Malignant neoplasm of prostate; K21.9 Gastro-esophageal reflux disease without esophagitis

== ENCOUNTER 2018-07-18 19:00 | Inpatient (IN) | payer MEDICARE, BC ==
[~2018-07-18] VITALS: Ht 177.8 cm; Wt 88.9 kg
[~2018-07-18 19:00] MED LIST: ASPIRIN81 MG PO; FLAGYL 500500 MG/100 IV; FLOMAX0.4 MG PO; FLORAJEN3 CAPS460 MG PO; HYDROCODON-ACE1 EAC7 PO; Levaquin PREMIX IV; PEPCID PO
--- NOTE | 2018-07-18 19:14 | NUR ---
PATIENT ASSISTED WITH SOME REQUESTS. HE IS RESTING IN HIS BED. BED IS DOWN LOW WITH SIDE RAILS UP X2. CALL LIGHT IS IN REACH.
--- NOTE | 2018-07-18 19:15 | NUR ---
PT RESTING IN BED WITH EYES OPEN. NOTED TO BE INC. OF A LARGE AMOUNT OF FOUL SMELLING LOOSE YELLOW STOOL. THE BED HAS NO PAD ON IT. INC. CARE AND LINEN CHANGE DONE WITH TOTAL ASSIST OF 2 NURSES. PT REPOSITIONED IN BED.
[2018-07-18 20:00] VITALS: BP 147/86
[2018-07-18 20:08] VITALS: BP 147/86; BMI 29.1
--- NOTE | 2018-07-18 22:40 | NUR ---
PT IS RESTING IN BED WITH EYES OPEN. PT STATED: " IT SURE IS SO MUCH QUIETER DOWN HERE. IT IS SO PEACEFUL." NO NEEDS VOICED.
--- NOTE | 2018-07-19 01:15 | NUR ---
PT RESTING IN BED WITH EYES OPEN. INC. CARE GIVEN. PT ASSISTED TO REPOSITION IN BED PER HIS REQUEST. NO FURTHER NEEDS VOICED.
--- NOTE | 2018-07-19 04:56 | NUR ---
RESTING IN BED WITH EYES CLOSED.
[2018-07-19 07:05] LABS: BASOPHILS 0.3 % (0-2); EOSINOPHILS 1.1 % (0-7); HEMATOCRIT 29.8 % (42.0-54.0); IMMATURE GRANULOCYTES 0.8 % (0-5); LYMPHOCYTES 8.8 % (15-50); MCH 31.7 pg (26.0-34.0); MCHC 33.6 g/dL (31.0-37.0); MCV 94.6 fL (80.0-100.0); MEAN PLATELET VOLUME 10.7 fL (7.4-10.4); MONOCYTES 10.8 % (2-11); NEUTROPHILS 78.2 % (40-80); PLATELET COUNT 176 10x3/uL (130-400); RBC 3.15 10x6/uL (4.20-6.10); RDW 14.8 % (11.5-14.5)
[2018-07-19 07:13] LABS: WBC 11.1 10x3/uL (4.8-10.8)
[2018-07-19 08:00] VITALS: BP 110/78
[2018-07-19 08:06] LABS: CALC OSMOLALITY 275 mosm/kg (275-300); CALCIUM 8.2 mg/dL (8.5-10.1); CARBON DIOXIDE 24.3 mmol/L (21.0-32.0); CHLORIDE - SERUM 103 mmol/L (98-107); CREATININE - SERUM 0.7 mg/dL (0.6-1.3); GLUCOSE 168 mg/dL (74-106); POTASSIUM - SERUM 4.1 mmol/L (3.5-5.1); SODIUM 136 mmol/L (136-145); UREA NITROGEN 12 mg/dL (7-18); eGFR NON AFRICAN AMERICAN > 90 mL/min (90-120)
[2018-07-19 08:13] LABS: MAGNESIUM - SERUM 1.9 mg/dL (1.8-2.4)
--- NOTE | 2018-07-19 12:00 | NUR ---
UP IN CHAIR.YUAN THERAPY.
[2018-07-19 12:48] VITALS: Ht 177.8 cm; Wt 88.9 kg
--- NOTE | 2018-07-19 19:04 | NUR ---
shift assmt completed.
--- NOTE | 2018-07-19 19:37 | NUR ---
PT IS RESTING IN BED WITH EYES OPEN. ALERT AND ORIENTED X 3. PT STATES HE HAS BEEN UNCOMFORTABLE ALL DAY, BUT VOICES NO SPECIFIC COMPLAINTS. NO NEEDS VOICED. IV IS INFUSING TO LEFT ARM PICC LINE. BILI DRAIN IS INTACT. NO DRAINAGE NOTED AT THIS TIME. SR'S ARE UP X 3 IN BED. CALL LIGHT AND BEDSIDE TABLE ARE WITHIN EASY REACH.
[2018-07-19 20:17] VITALS: BP 115/75
--- NOTE | 2018-07-19 22:15 | NUR ---
PT IS RESTING QUIETLY IN BED WITH EYES CLOSED. RESPS ARE EVEN AND UNLABORED. NO ACUTE DISTRESS NOTED.
--- NOTE | 2018-07-20 00:25 | NUR ---
RESTING IN BED WITH RESPIRATIONS UNLABORED. TPN INFUSUSING TO LEFT ARM PICC LINE. BILI BAG IN PLACE. NO ACUTE DISTRESS NOTED. CALL LIGHT IN REACH.
--- NOTE | 2018-07-20 04:05 | NUR ---
RESTING IN BED WITH EYES CLOSED.
[2018-07-20 07:42] LABS: CALC OSMOLALITY 274 mosm/kg (275-300); CALCIUM 8.6 mg/dL (8.5-10.1); CARBON DIOXIDE 27.3 mmol/L (21.0-32.0); CHLORIDE - SERUM 103 mmol/L (98-107); CREATININE - SERUM 0.8 mg/dL (0.6-1.3); GLUCOSE 170 mg/dL (74-106); PHOSPHOROUS 3.3 mg/dL (2.5-4.9); POTASSIUM - SERUM 4.1 mmol/L (3.5-5.1); SODIUM 135 mmol/L (136-145); UREA NITROGEN 15 mg/dL (7-18); eGFR NON AFRICAN AMERICAN > 90 mL/min (90-120)
[2018-07-20 08:00] VITALS: BP 131/77
--- NOTE | 2018-07-20 08:00 | NUR ---
SHIFT ASSMT COMPLETED.
--- NOTE | 2018-07-20 08:25 | NUR ---
NUTRITION F/U CHART/LABS REVIEWED. TPN ADJUSTED AND RENEWED. WILL CONTINUE TO MONITOR LABS, ADJUST TPN NEEDED. RD FOLLOWING
--- NOTE | 2018-07-20 19:42 | NUR ---
PT IS RESTING IN BED WITH EYES OPEN. ALERT AND ORIENTED X 3. DENIES ANY DISCOMFORT AT THIS TIME. NO NEEDS VOICED. BILI DRAIN DRAINING TO A GRAVITY BAG. NO DRAINAGE NOTED AT THIS TIME. TPN INFUSING TO LEFT ARM PICC LINE WITHOUT DIFFICULTY. SR'S ARE UP X 2 IN BED. CALL LIGHT AND BEDSIDE TABLE ARE WITHIN EASY REACH.
[2018-07-20 20:00] VITALS: BP 146/76
--- NOTE | 2018-07-20 23:10 | NUR ---
RESTING QUIETLY IN BED WITH EYES CLOSED. USING URINAL PRN.
--- NOTE | 2018-07-21 02:44 | NUR ---
CONTINUES RESTING IN BED WITH NO DISTRESS NOTED. TPN INFUSING TO LEFT ARM PICC LINE WITHOUT DIFFICULTY. NO DISTRESS NOTED. CALL LIGHT IN REACH.
[2018-07-21 06:24] LABS: BASOPHILS 0.4 % (0-2); EOSINOPHILS 1.3 % (0-7); HEMATOCRIT 30.2 % (42.0-54.0); HEMOGLOBIN 10.1 g/dL (13.5-17.5); IMMATURE GRANULOCYTES 0.8 % (0-5); LYMPHOCYTES 9.8 % (15-50); MCH 31.6 pg (26.0-34.0); MCHC 33.4 g/dL (31.0-37.0); MCV 94.4 fL (80.0-100.0); MEAN PLATELET VOLUME 10.8 fL (7.4-10.4); MONOCYTES 11.7 % (2-11); PLATELET COUNT 164 10x3/uL (130-400); RDW 14.3 % (11.5-14.5)
[2018-07-21 06:37] LABS: ALKALINE PHOSPHATASE 57 U/L (46-116); ALT (SGPT) 11 U/L (10-68); BILIRUBIN - TOTAL 0.37 mg/dL (0.2-1.3); CALC OSMOLALITY 275 mosm/kg (275-300); CALCIUM 8.6 mg/dL (8.5-10.1); CARBON DIOXIDE 24.3 mmol/L (21.0-32.0); CHLORIDE - SERUM 103 mmol/L (98-107); CREATININE - SERUM 0.8 mg/dL (0.6-1.3); PHOSPHOROUS 3.2 mg/dL (2.5-4.9); POTASSIUM - SERUM 4.4 mmol/L (3.5-5.1); PROTEIN - SERUM 6.8 g/dL (6.4-8.2); SODIUM 133 mmol/L (136-145); UREA NITROGEN 16 mg/dL (7-18); eGFR NON AFRICAN AMERICAN > 90 mL/min (90-120)
[2018-07-21 06:48] LABS: GLUCOSE 260 mg/dL (74-106)
[2018-07-21 07:55] VITALS: BP 125/73
--- NOTE | 2018-07-21 08:04 | NUR ---
SITTING UP IN BED WITH EYES CLOSED. NO S/S DISTRESS. IS CONNECTED TO IV VIA LUE PICC, DOUBLE LUMEN. USES URINAL IN BED. CALL LIGHT IN REACH
--- NOTE | 2018-07-21 09:06 | NUR ---
NUTRITION F/U CHART/LABS REVIEWED. SPOKE WITH MD & PHARMACY . OK WITH ADDING LIPIDS TO TPN REGIMEN. INCREASED NA+ SLIGHTLY AND ADDED SMALL AMT INSULIN. WILL CONTINUE TO MONITOR LABS AND ADJUST TPN NEEDED. RD FOLLOWING
--- NOTE | 2018-07-21 11:24 | NUR ---
PATIENT ADMITTED TO REHAB FROM ACUTE FLOOR. DR. PINEDO IS PATIENT PCP, HE HAS NO DME AT HOME. HE IS A CLIENT OF [facility]. WILL CONTINUE TO FOLLOW WITH PATIENT. PATIENT RESIDES AT [facility].
--- NOTE | 2018-07-21 11:41 | NUR ---
SITTING UP IN WC IN ROOM WORKING WITH THERAPY
[2018-07-21 19:00] VITALS: BP 133/83
--- NOTE | 2018-07-21 19:46 | NUR ---
PT IS RESTING IN BED WITH EYES OPEN. ALERT AND ORIENTED X 3. PT DENIES ACUTE DISCOMFORT AT THIS TIME. HE STATED HE HAD A MUCH BETTER DAY TODAY THAN YESTERDAY. IVS ARE INFUSING TO LEFT ARM PICC LINE WITHOUT DIFFICULTY. BILI DRAIN TO RIGHT ABD IS INTACT AND DRAINING TO A GRAVITY BAG. SR'S ARE UP X 3 IN BED. CALL LIGHT AND BEDSIDE TABLE ARE WITHIN EASY REACH.
--- NOTE | 2018-07-21 22:18 | NUR ---
PT IS RESTING QUIETLY IN BED WITH EYES CLOSED. RESPS ARE EVEN AND UNLABORED. NO ACUTE DISTRESS NOTED.
--- NOTE | 2018-07-22 01:37 | NUR ---
PT RESTING IN BED WITH EYES OPEN. NO NEEDS VOICED.
--- NOTE | 2018-07-22 04:18 | NUR ---
PT IN BED LOW POSITION, EYES CLOSED, AROUSES EASILY TO VOICE, NO NEEDS NOTED, FLUIDS AND CALL LIGHT WITHIN REACH
[2018-07-22 08:06] LABS: CALC OSMOLALITY 278 mosm/kg (275-300); CALCIUM 8.5 mg/dL (8.5-10.1); CARBON DIOXIDE 23.3 mmol/L (21.0-32.0); CHLORIDE - SERUM 105 mmol/L (98-107); CREATININE - SERUM 0.8 mg/dL (0.6-1.3); MAGNESIUM - SERUM 2.2 mg/dL (1.8-2.4); PHOSPHOROUS 2.9 mg/dL (2.5-4.9); POTASSIUM - SERUM 4.1 mmol/L (3.5-5.1); SODIUM 137 mmol/L (136-145); UREA NITROGEN 15 mg/dL (7-18); eGFR NON AFRICAN AMERICAN > 90 mL/min (90-120)
[2018-07-22 08:07] LABS: GLUCOSE 163 mg/dL (74-106)
[2018-07-22 08:09] VITALS: BP 128/77
--- NOTE | 2018-07-22 08:09 | NUR ---
RESTING QUIETLY IN BED, LAYING ON BACK. BILI DRAIN BELOW INCISION AND SMALL AMOUNT OF GREEN COLORED DRAINAGE NOTED IN BAG. NO RESP DISTRESS NOTED. HE HAS LEFT PICC WITH TPN AND NS INFUSING ORDERED. CALL LIGHT IN REACH
--- NOTE | 2018-07-22 12:24 | NUR ---
SITTING IN ROOM IN . DENIES NEEDS. HAS BEEN WORKING WITH THERAPY
--- NOTE | 2018-07-22 15:41 | NUR ---
HAS EYES CLOSED AND IS LAYING STILL IN BED. HAS BEEN UP WITH THERAPY SOME TODAY AND SAID HE WAS TIRED. NO DISTRESS NOTED. SIDE RAILS UP X2. CALL LIGHT IN REACH
[2018-07-22 19:00] VITALS: BP 134/75
--- NOTE | 2018-07-22 19:20 | NUR ---
PT CHRISTMAS TREE CONTRACTOR LIGHT, IV BEEPING, IV INFUSION AMOUNT ADJ, EMPTIED 150 MLS OF DARK YELLOW URINE, PT DENIES FURTHER NEEDS, BED IN LOW POSITION, SIDE RAILS X 3, CALL LIGHT IN REACH
--- NOTE | 2018-07-22 20:05 | NUR ---
PT AWAKE, ASSESSMENT PER FLOW SHEET, MIDLINE IN LEFT UPPER ARM INTACT WITH NO REDNESS OR EDEMA INFUSING VIA PUMP NS AT 20ML/HR AND TPN AT 75 ML/HR PER MD ORDERS, SEE EMAR, BILI DRAIN ON RIGHT SIDE CDI WITH NO DRAIANGE NOTED AROUND INC SITE, PT DENIES NEEDS OR PAIN AT THIS TIME, BED IN LOW POSITION, SIDE RAILS X 2, CALL LIGHT IN REACH
--- NOTE | 2018-07-22 21:47 | NUR ---
PT AWAKE, ADM 2100 MEDS PER MD ORDERS, SEE EMAR, BILI DRAIN FLUSHED WITH 10MLS OF NS WITH NO DIFFICULTY, FRESH CUP OF ICE PROVIDED, EMPTIED 150 MLS OF DARK YELLOW URINE FROM URINAL, PT C/O OF "BEING COLD", PROVIDED WARM BLANKET FROM WARMER, PT STATES "OH, THAT'S NICE, THANK YOU, THANK YOU FOR BEING SO NICE", BED IN LOW POSITION, SIDE RAILS X 2, CALL LIGHT IN REACH
--- NOTE | 2018-07-22 22:38 | NUR ---
PT IN BED LOW POSITION, EYES CLOSED, AROUSES EASILY TO VOICE, NO NEEDS NOTED, CALL LIGHT WITHIN REACH, PT IS NPO AT THIS TIME
--- NOTE | 2018-07-23 00:33 | NUR ---
PT RESTING WITH EYES CLOSED, RESP QUIET, NO DISTRESS NOTED, LEFT UNDISTURBED AT THIS TIME, BED IN LOW POSITION, SIDE RAILS X 2, CALL LIGHT IN REACH
--- NOTE | 2018-07-23 04:50 | NUR ---
PT AWAKE, OBTAINED AM BLOOD DRAW, EMPTIED BILI DRAIN, EMPTIED 125 MLS OF DARK YELLOW URINE FROM URINAL, REQUESTED AND SERVED FRESH ICE CHIPS, DENIES FURTHER NEEDS, BED IN LOW POSITION, SIDE RAILS X 2, CALL LIGHT IN REACH
[2018-07-23 06:10] LABS: CALC OSMOLALITY 276 mosm/kg (275-300); CALCIUM 8.7 mg/dL (8.5-10.1); CHLORIDE - SERUM 104 mmol/L (98-107); CREATININE - SERUM 0.7 mg/dL (0.6-1.3); GLUCOSE 151 mg/dL (74-106); MAGNESIUM - SERUM 2.2 mg/dL (1.8-2.4); PHOSPHOROUS 3.3 mg/dL (2.5-4.9); SODIUM 136 mmol/L (136-145); UREA NITROGEN 17 mg/dL (7-18); eGFR NON AFRICAN AMERICAN > 90 mL/min (90-120)
[2018-07-23 06:29] LABS: HEMATOCRIT 30.2 % (42.0-54.0); HEMOGLOBIN 10.1 g/dL (13.5-17.5); MCH 31.5 pg (26.0-34.0); MCHC 33.4 g/dL (31.0-37.0); MCV 94.1 fL (80.0-100.0); MEAN PLATELET VOLUME 10.8 fL (7.4-10.4); PLATELET COUNT 144 10x3/uL (130-400); RBC 3.21 10x6/uL (4.20-6.10); RDW 14.3 % (11.5-14.5)
--- NOTE | 2018-07-23 06:41 | NUR ---
BILI DRAIN FLUSHED WITH 10MLS OF NS WITH NO DIFFICULTY
[2018-07-23 08:00] VITALS: BP 108/71
--- NOTE | 2018-07-23 08:00 | NUR ---
SHIFT ASSMT COMPLETED.
[2018-07-23 09:02] LABS: BASOPHILS 2 % (0-2); EOSINOPHILS 2 % (0-7); LYMPHOCYTES 16 % (15-50); MONOCYTES 10 % (2-11); NEUTROPHILS 69 % (40-80); PLATELET ESTIMATE NORMAL
[2018-07-23 09:03] LABS: ANISOCYTOSIS OCC; HYPOCHROMASIA OCC; ROULEAUX OCC
--- NOTE | 2018-07-23 12:03 | NUR ---
NUTRITION F/U LABS REVIEWED. TPN AND LIPIDS. WILL ADD TRIGLYCERIDE TO AM BMP, MAG, PHOS LAB DRAW. RD FOLLOWING
--- NOTE | 2018-07-23 16:00 | NUR ---
UP IN CHAIR.CL IN REACH.
[2018-07-23 19:00] VITALS: BP 134/55
--- NOTE | 2018-07-23 19:05 | NUR ---
PATIENT IS RESTING IN HIS BED. BED IS DOWN LOW WITH SIDE RAILS UP X2. CALL LIGHT IS IN REACH.
--- NOTE | 2018-07-24 00:05 | NUR ---
PATIENT IS SLEEPING. BED IS DOWN LOW WITH SIDE RAILS UP X2. CALL LIGHT IS IN REACH.
[2018-07-24 06:32] LABS: CALC OSMOLALITY 275 mosm/kg (275-300); CALCIUM 8.9 mg/dL (8.5-10.1); CARBON DIOXIDE 26.3 mmol/L (21.0-32.0); CHLORIDE - SERUM 104 mmol/L (98-107); CREATININE - SERUM 0.7 mg/dL (0.6-1.3); GLUCOSE 146 mg/dL (74-106); MAGNESIUM - SERUM 2.1 mg/dL (1.8-2.4); PHOSPHOROUS 3.6 mg/dL (2.5-4.9); SODIUM 136 mmol/L (136-145); TRIGLYCERIDE 71 mg/dL (30-200); UREA NITROGEN 16 mg/dL (7-18); eGFR NON AFRICAN AMERICAN > 90 mL/min (90-120)
--- NOTE | 2018-07-24 08:00 | NUR ---
SHIFT ASSMT COMPLETED.TPN ORDERED.REMAINS NPO EXCEPT ICE CHIPS.YUAN WELL.UP OOB TO BATHROOM PER WC AND BACK TO WC.
[2018-07-24 08:12] VITALS: BP 141/82
--- NOTE | 2018-07-24 11:20 | NUR ---
BACK FROM RD PER WC.
--- NOTE | 2018-07-24 12:00 | NUR ---
RESTING QUIETLY IN BED.
--- NOTE | 2018-07-24 16:00 | NUR ---
YUAN THERAPY TODAY.BACK IN BED.RESTING QUIETLY.
--- NOTE | 2018-07-24 19:08 | NUR ---
PATIENT IS RESTING IN HIS BED WITH HIS EYES CLOSED. BED IS DOWN LOW WITH SIDE RAILS UP X2. CALL LIGHT IS IN REACH.
[2018-07-24 19:25] VITALS: BP 136/70
--- NOTE | 2018-07-25 00:02 | NUR ---
PATIENT IS SLEEPING. BED IS DOWN LOW WITH SIDE RAILS UP X2. CALL LIGHT IS IN REACH.
--- NOTE | 2018-07-25 04:03 | NUR ---
PATIENT IS RESTING IN HIS BED. APPEARS TO BE SLEEPING. BED IS DOWN LOW WITH SIDE RAILS UP X2. CALL LIGHT IS IN REACH.
[2018-07-25 07:09] LABS: BASOPHILS 0.5 % (0-2); EOSINOPHILS 3.8 % (0-7); HEMOGLOBIN 10.2 g/dL (13.5-17.5); IMMATURE GRANULOCYTES 0.8 % (0-5); LYMPHOCYTES 7.3 % (15-50); MCH 31.1 pg (26.0-34.0); MCHC 32.9 g/dL (31.0-37.0); MCV 94.5 fL (80.0-100.0); MEAN PLATELET VOLUME 10.4 fL (7.4-10.4); MONOCYTES 9.6 % (2-11); PLATELET COUNT 119 10x3/uL (130-400); RBC 3.28 10x6/uL (4.20-6.10); RDW 14.4 % (11.5-14.5); WBC 7.4 10x3/uL (4.8-10.8)
[2018-07-25 07:18] LABS: ALBUMIN 2.3 g/dL (3.4-5.0); ALKALINE PHOSPHATASE 70 U/L (46-116); ALT (SGPT) 14 U/L (10-68); BILIRUBIN - TOTAL 0.34 mg/dL (0.2-1.3); CALC OSMOLALITY 278 mosm/kg (275-300); CALCIUM 8.9 mg/dL (8.5-10.1); CARBON DIOXIDE 23.7 mmol/L (21.0-32.0); CHLORIDE - SERUM 104 mmol/L (98-107); CREATININE - SERUM 0.8 mg/dL (0.6-1.3); GLUCOSE 157 mg/dL (74-106); PHOSPHOROUS 3.5 mg/dL (2.5-4.9); POTASSIUM - SERUM 4.1 mmol/L (3.5-5.1); PROTEIN - SERUM 7.2 g/dL (6.4-8.2); SODIUM 137 mmol/L (136-145); UREA NITROGEN 19 mg/dL (7-18); eGFR NON AFRICAN AMERICAN > 90 mL/min (90-120)
[2018-07-25 08:07] VITALS: BP 126/70
--- NOTE | 2018-07-25 08:09 | NUR ---
LAYING IN BED WITH EYES CLOSED. NO S/S DISTRESS. CALL LIGHT IN REACH
--- NOTE | 2018-07-25 12:16 | NUR ---
SITTING UP IN WC IN ROOM. CALL LIGHT IN REACH. DENIES NEEDS.
--- NOTE | 2018-07-25 14:31 | NUR ---
LAYING IN BED WITH EYES CLOSED. NO S/S DISTRESS. TPN INFUSING ORDERED VIA LUE PICC. CALL LIGHT IN REACH
--- NOTE | 2018-07-25 17:53 | NUR ---
LAYING IN BED WITH EYES CLOSED. NO S/S DISTRESS. HE USES URINALS. TPN STILL INFUSING VIA LEFT AC PICK. CALL LIGHT IN REACH.
--- NOTE | 2018-07-25 21:31 | NUR ---
Patient is alert and oriented, pleasant and friendly, TPN at 75 ml/hour, no needs voiced, will continue to monitor , will continue plan of care.
[2018-07-25 22:05] VITALS: BP 128/77
--- NOTE | 2018-07-26 01:05 | NUR ---
patient resting quietly in bed eyes closed, no distress noted, will continue to monitor.
[2018-07-26 07:40] VITALS: BP 96/57
[2018-07-26 09:20] LABS: CALC OSMOLALITY 272 mosm/kg (275-300); CALCIUM 8.8 mg/dL (8.5-10.1); CARBON DIOXIDE 22.1 mmol/L (21.0-32.0); CHLORIDE - SERUM 103 mmol/L (98-107); CREATININE - SERUM 0.8 mg/dL (0.6-1.3); GLUCOSE 157 mg/dL (74-106); PHOSPHOROUS 3.4 mg/dL (2.5-4.9); POTASSIUM - SERUM 4.3 mmol/L (3.5-5.1); SODIUM 134 mmol/L (136-145); UREA NITROGEN 18 mg/dL (7-18); eGFR NON AFRICAN AMERICAN > 90 mL/min (90-120)
--- NOTE | 2018-07-26 09:37 | NUR ---
NUTRITION F/U LABS REVIEWED. TPN ADJUSTED. WILL CONTINUE TO MONITOR AND ADJUST NEEDED. RD FOLLOWING
--- NOTE | 2018-07-26 10:24 | NUR ---
SITTING IN WC IN ROOM READING NEWSPAPER. CALL LIGHT IN REACH
--- NOTE | 2018-07-26 17:25 | NUR ---
WAS INCONT OF STOOL IN BED. IT WAS YELLOW AND RUNNY. WAS ABLE TO STAND UP TO BE CLEANED UP. TIRES EASILY. BACK TO BED. CALL LIGHT IN REACH.
--- NOTE | 2018-07-26 19:11 | NUR ---
PATIENT IS SLEEPING. BED IS DOWN LOW WITH SIDE RAILS UP X2. CALL LIGHT IS IN REACH.
[2018-07-26 19:40] VITALS: BP 124/73
--- NOTE | 2018-07-27 00:02 | NUR ---
PATIENT IS SLEEPING. NO SIGNS OF DISTRESS. BED IS DOWN LOW WITH SIDE RAILS UP X2. CALL LIGHT IS IN REACH.
[2018-07-27 06:39] LABS: CALC OSMOLALITY 278 mosm/kg (275-300); CALCIUM 8.7 mg/dL (8.5-10.1); CARBON DIOXIDE 24.4 mmol/L (21.0-32.0); CHLORIDE - SERUM 105 mmol/L (98-107); CREATININE - SERUM 0.8 mg/dL (0.6-1.3); GLUCOSE 157 mg/dL (74-106); MAGNESIUM - SERUM 1.9 mg/dL (1.8-2.4); PHOSPHOROUS 3.4 mg/dL (2.5-4.9); POTASSIUM - SERUM 4.1 mmol/L (3.5-5.1); SODIUM 137 mmol/L (136-145); UREA NITROGEN 18 mg/dL (7-18); eGFR NON AFRICAN AMERICAN > 90 mL/min (90-120)
[2018-07-27 07:29] VITALS: BP 109/56
--- NOTE | 2018-07-27 08:19 | NUR ---
RESTING QUIETLY IN BED. EYES CLOSED. IV INFUSING VIA LUE. URINALS AT BEDSIDE. SIDERAILS UP X2. CALL LIGHT IN REACH
--- NOTE | 2018-07-27 08:35 | NUR ---
NUTRITION F/U LABS REVIEWED. ADDED MAG AND PHOS TO AM LAB DRAW. WILL CONTINUE TO MONITOR LABS AND ADJUST TPN NEEDED. RD FOLLOWING
--- NOTE | 2018-07-27 12:25 | NUR ---
LAYING IN BED RESTING. SAT FOR FOR A WHILE THIS MORNING IN IN ROOM. TPN STILL INFUSING VIA LUE PICC. USES URINAL IN BED. DENIES PAIN. NO DRAINAGE NOTED FROM BILI DRAIN SITE. HAD BM THIS AM OF LIQUID GREENISH STOOL. CALL LIGHT IN REACH
--- NOTE | 2018-07-27 16:15 | NUR ---
BACK TO BED AFTER GETTING UP WITH NURSE TO USE TOILET. LIQUID STOOL NOTED. IS WEAK AND FRAIL. DECLINED TO SIT IN WC AGAIN DUE TO SORE BUTTOCKS. CREAM APPLIED TO AFFECTED AREA. ASST BACK TO BED. CALL LIGHT IN REACH.
--- NOTE | 2018-07-27 19:04 | NUR ---
THE PATIENT WAS LYING IN BED WHEN STAFF ENTERED THE PATIENTS ROOM. BED IS IN THE LOW POSITION WITH SIDERAILS X2 AND CALL LIGHT WITHIN REACH. THE PATIENT DEMONSTRATES APPROPRIATE USE OF A CALL LIGHT. THE PATIENT APPEARS COMFORTABLE AND HAS NO QUESTIONS OR CONCERNS AT THIS TIME.
[2018-07-27 20:05] VITALS: BP 118/74
--- NOTE | 2018-07-28 02:43 | NUR ---
THE PATIENT WAS AWAKE AND TALKING TO STAFF. HE HAS NO QUESTIONS OR CONCERNS AT THIS TIME.
[2018-07-28 06:25] LABS: BASOPHILS 0.4 % (0-2); EOSINOPHILS 1.9 % (0-7); HEMATOCRIT 30.3 % (42.0-54.0); IMMATURE GRANULOCYTES 0.5 % (0-5); LYMPHOCYTES 11.2 % (15-50); MCV 93.8 fL (80.0-100.0); MEAN PLATELET VOLUME 11.6 fL (7.4-10.4); MONOCYTES 11.3 % (2-11); NEUTROPHILS 74.7 % (40-80); PLATELET COUNT 115 10x3/uL (130-400); RBC 3.23 10x6/uL (4.20-6.10); RDW 14.2 % (11.5-14.5)
[2018-07-28 06:40] LABS: CALC OSMOLALITY 274 mosm/kg (275-300); CALCIUM 8.6 mg/dL (8.5-10.1); CARBON DIOXIDE 23.6 mmol/L (21.0-32.0); CHLORIDE - SERUM 103 mmol/L (98-107); CREATININE - SERUM 0.8 mg/dL (0.6-1.3); GLUCOSE 153 mg/dL (74-106); PHOSPHOROUS 3.4 mg/dL (2.5-4.9); POTASSIUM - SERUM 4.1 mmol/L (3.5-5.1); SODIUM 135 mmol/L (136-145); UREA NITROGEN 17 mg/dL (7-18); eGFR NON AFRICAN AMERICAN > 90 mL/min (90-120)
[2018-07-28 10:54] VITALS: BP 115/68
--- NOTE | 2018-07-28 11:23 | NUR ---
SPOKE WITH PATIENT SON AND HE WILL SPEAK WITH FRAN CAST REGARDING POSSIBLE PRIVATE CARE GIVERS. WILL CONTIUE TO FOLLOW WITH PATIENT.
[2018-07-28 19:30] VITALS: BP 134/72
--- NOTE | 2018-07-28 19:30 | NUR ---
ASSESSMENT PER FLOW SHEET, VS OBTAINED, PICC LINE IN LEFT UPPER ARM INTACT WITH NO REDNESS OR EDEMA INFUSING VIA PUMP TPN AT 75 ML/HR PER MD ORDERS, SEE EMAR, PT REPORTS FLATUS, BM TODAY AND USING URINAL WITH NO DIFFICLTY, PT DENIES NEEDS OR PAIN AT THIS TIME, BED IN LOW POSITION, SIDE RAILS X 2, CALL LIGHT IN REACH
--- NOTE | 2018-07-28 20:15 | NUR ---
PT AWAKE, EMPTIED 115 MLS OF DARK YELLOW URINE FROM URINAL, PT DENIES FURTHER NEEDS, INFORMED PT THAT I WILL BE BACK SHORTLY TO ADM 2100 MEDS, PT VERBALIZES UNDERSTANDING, BED IN LOW POSITION, SIDE RAILS X 2, CALL LIGHT IN REACH
--- NOTE | 2018-07-28 21:03 | NUR ---
PT RESTING WITH EYES CLOSED, AROUSES TO SOFT VERBAL STIMULATION, ADM 2100 MEDS AND HUNG NEW BAG OF TPN BECAUSE BAG HANGING WAS FINISHED INFUSING, PT REPORTS NEEDING TO HAVE A BM, THIS RN AND MYRNA MILLER RN ASSISTED PT TO BR VIA WC, PT UNABLE TO HAVE BM, VOIDED WITH NO DIFFICULTY, PT BACK TO BED, PT DENIES FURTHER NEEDS, BED IN LOW POSITION, SIDE RAILS X 2, CALL LIGHT IN REACH
--- NOTE | 2018-07-28 23:58 | NUR ---
PT AUTOMOBILE UPHOLSTERER APPRENTICE LIGHT, PT ACCIDENTALLY SPILLED SOME URINE, TOP SHEET AND BLANKET CHANGED, SMALL AMOUNT CLEANED UP OFF OF FLOOR, PT DENIES FURTHER NEEDS OR PAIN, BED IN LOW POSITION, SIDE RAILS X 2, CALL LIGHT IN REACH
--- NOTE | 2018-07-29 04:08 | NUR ---
PT ISSUER LIGHT, PT SLIGHTLY MISSED URINAL, BLUE CHUX CHANGED, CLEAN BRIEF PLACED ON, PT DENIES FURTHER NEEDS, EMPTIED 75 MLS OF DARK YELLOW URINE, PT DENIES FURTHER NEEDS OR PAIN AT THIS TIME
--- NOTE | 2018-07-29 05:36 | NUR ---
PT RESTING WITH EYES CLOSED, RESP QUIET, NO DISTRESS NOTED, LEFT UNDISTURBED AT THIS TIME, PT WEIGHED ON WEIGH BED, BED IN LOW POSITION, SIDE RAILS X 2, CALL LIGHT IN REACH
--- NOTE | 2018-07-29 07:32 | NUR ---
NO CHANGE IN ASSESSMENT. RESP EVEN AND UNLABORED. CL IN REACH,
--- NOTE | 2018-07-29 08:22 | NUR ---
PT RESTING IN BED WITH EYES OPEN CALL LIGHT IN REACH WILL MONITER
--- NOTE | 2018-07-29 15:08 | NUR ---
CARE TEAM MEETING: PATIENT IS PROGRESSING SLOWLY IN THERAPY. [facility] HAS CAME TO EVALUATE FOR PATIENT TO RETURN TO [facility]. WILL CONTINUE TO FOLLOW WITH PATIENT. TENATIVE DISCHARGE DATE IS 08/05/18.
--- NOTE | 2018-07-29 18:16 | NUR ---
PT RESTING IN BED WITH EYES OPEN CALL LIGHT IN REACH NO PROBLEMS WILL MONITER
[2018-07-29 19:40] VITALS: BP 122/81
--- NOTE | 2018-07-29 19:40 | NUR ---
ASSESSMENT PER FLOW SHEET, VS OBTAINED, PICC LINE IN UPPER LEFT ARM INTACT WITH NO REDNESS OR EDEMA INFUSING TPN AT 75 ML/HR, PT REPORTS FLATUS, BM TODAY AND USING URINAL WHEN VOIDING, PT DENIES NEEDS OR PAIN AT THIS TIME
--- NOTE | 2018-07-29 21:14 | NUR ---
PT RESTING WITH EYES CLOSED, AROUSES TO SOFT VERBAL STIMULATION, ADM 2100 MEDS PER MD ORDERS, SEE EMAR, PT INST ON AND DEMONSTRATED CHIN TO NECK FOR SWALLOWING, EMPTIED 75 MLS OF DARK YELLOW URINE FROM URINAL, PT DENIES FURTHER NEEDS, BED IN LOW POSITION, SIDE RAILS X 2, CALL LIGHT IN REACH
--- NOTE | 2018-07-29 23:26 | NUR ---
PT SUPPLY CHAIN PROJECT MANAGER LIGHT, IV BEEPING, NEW BAG OF TPN HUNG PER MD ORDERS, SEE EMAR, EMPTIED 100 MLS OF DARK YELLOW URINE FROM URINAL, PT DENIES FURTHER NEEDS OR PAIN
--- NOTE | 2018-07-30 02:00 | NUR ---
PT AWAKE, REPOSITIONED PT IN BED, EMPTIED 50 MLS OF DARK YELLOW URINE FROM URINAL, PT DENIES FURTHER NEEDS OR PAIN AT THIS TIME, BED IN LOW POSITION, SIDE RAILS X 2, CALL LIGHT IN REACH
--- NOTE | 2018-07-30 05:12 | NUR ---
PT RESTING WITH EYES CLOSED, NO DISTRESS NOTED, LEFT UNDISTURBED AT THIS TIME, EMPTIED 100 MLS OF DARK YELLOW URINE FROM URINAL, BED IN LOW POSITION, SIDE RAILS X 2, CALL LIGHT IN REACH
--- NOTE | 2018-07-30 06:31 | NUR ---
PT SALES SERVICE COORDINATOR LIGHT, PT INCONT, PT CLEANED UP WITH WET WARM WIPES, BRIEF, TOP SHEET, AND BLANKET REPLACED, PT DENIES FURTHER NEEDS OR PAIN
--- NOTE | 2018-07-30 07:55 | NUR ---
PT RESTING IN ROOM. ATTEMPTED TO DRAW BLOOD FROM PICC LINE. UNABLE TO DRAW BACK MORE THAN 2ML AFTER FLUSHING MULTIPLE TIMES AND HAVING PT MOVE AROUND. NOTIFIED LAB OF NEED OF BLOOD DRAW. WCTM.
[2018-07-30 08:00] VITALS: BP 127/77
[2018-07-30 09:16] LABS: BASOPHILS 0.2 % (0-2); EOSINOPHILS 1.3 % (0-7); HEMATOCRIT 29.6 % (42.0-54.0); HEMOGLOBIN 9.9 g/dL (13.5-17.5); IMMATURE GRANULOCYTES 0.5 % (0-5); LYMPHOCYTES 8.6 % (15-50); MCH 31.1 pg (26.0-34.0); MCHC 33.4 g/dL (31.0-37.0); MCV 93.1 fL (80.0-100.0); MEAN PLATELET VOLUME 11.6 fL (7.4-10.4); MONOCYTES 11.4 % (2-11); PLATELET COUNT 120 10x3/uL (130-400); RBC 3.18 10x6/uL (4.20-6.10); RDW 13.9 % (11.5-14.5); WBC 8.3 10x3/uL (4.8-10.8)
[2018-07-30 09:27] LABS: CALC OSMOLALITY 272 mosm/kg (275-300); CALCIUM 8.9 mg/dL (8.5-10.1); CARBON DIOXIDE 25.1 mmol/L (21.0-32.0); CHLORIDE - SERUM 102 mmol/L (98-107); CREATININE - SERUM 0.7 mg/dL (0.6-1.3); GLUCOSE 153 mg/dL (74-106); MAGNESIUM - SERUM 2.1 mg/dL (1.8-2.4); PHOSPHOROUS 3.5 mg/dL (2.5-4.9); SODIUM 134 mmol/L (136-145); UREA NITROGEN 17 mg/dL (7-18); eGFR NON AFRICAN AMERICAN > 90 mL/min (90-120)
--- NOTE | 2018-07-30 09:45 | NUR ---
NUTRITION F/U LABS REVIEWED. INCREASED NA+ IN TPN. ADDED BMP, MAG, PHOS TO AM LAB DRAW. WILL CONTINUE TO MONITOR LABS, ADJUST TPN NEEDED. RD FOLLOWING
--- NOTE | 2018-07-30 10:35 | RHP ---
PATIENT: NILAY FORRESTER MEDICAL RECORD: [id number] ACCOUNT: [id number] LOCATION:[facility] : 37 ADMISSION DATE: 07/18/18 REHABILITATION HISTORY AND PHYSICAL EXAMINATION POST ADMISSION PHYSICIAN EXAMINATION POST ADMISSION PHYSICAL EXAMINATION AND HISTORY AND PHYSICAL DATE OF ADMISSION: 07/18/2018 ADMITTING DIAGNOSIS: Disuse myopathy. 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 He has got choledocholithiasis with acute cholecystitis and prolonged hospitalization. He started having pain in his abdomen on July 01. He was brought to the ED on July 02, found to have gallstones and pancreatitis. He reported history of gallstones and right upper quadrant pain, but no history of pancreatitis. He does drink very rarely. He also has a history of prostate cancer. He has been seeing Dr. Whipple for this and Dr. Sanches. Surgery was consulted. He was taken to the OR on July 03 for a lap cholecystectomy. He had elevated LFTs. Pancreatic enzymes were also elevated. He also ran some temperature after this. He was placed on IV fluids, pain control. GI was following also. They plan actually to do an ERCP on this at some point. On July 08, he had a repeat CT, which demonstrated acute pancreatitis and possible biloma versus seroma. His white blood cell count continued to rise. He had a CT-guided abscess drainage with drain placement for biloma. ID was also consulted for persistent rise in WBC. CT of abdomen and pelvis with contrast on July 15 showed diffuse peripancreatic inflammation and fluid consistent with pancreatitis. He had interval placement of a percutaneous drain. He has also been placed on TPN. He is n.p.o. He has been continued on antibiotics. Biliary drain still remains in place at this time. Currently, he is mod-to-max assist for ADLs and mobility. He has prolonged immobility affecting his tolerance to PT. He is weak especially in his lower extremities. He has got proximal muscle weakness and tires easily. He has had nausea, but no emesis here on the floor. Barriers to discharge at this time are n.p.o. status, IV TPN, and IV antibiotics. He is in an independent living facility and must be able to perform ADLs and ambulate independently as well as care for his . Comorbidities in this patient include necrotizing pancreatitis, gallstones, prostate cancer, small bile leak, biloma, jaundice, hyperlipidemia, leukocytosis, sinus tach, postop fever, nausea and vomiting, status post laparoscopic cholecystectomy. PAST MEDICAL HISTORY: Significant for hypertension, hyperlipidemia, prostate cancer, melanoma, acid reflux, inguinal hernia, colon polyps. He has had problems with both of his rotator cuff. PAST SURGICAL HISTORY: Includes shoulder surgery, skin cancer removal. ALLERGIES: No known drug allergies. CURRENT MEDICATIONS: Include electrolyte replacement. He is on TPN, Flomax 0.4 mg daily, Floranex 460 mg daily, Levaquin 750 daily. He is on Flagyl 500 mg every 8 hours. He is on Pepcid 20 mg b.i.d., [place] 1-2 tabs every 4 hours p.r.n., and MiraLax 17 grams in 8 ounces of water daily. HISTORY AND PHYSICAL [id number] NILAY FORRESTER HABITS: No current alcohol or tobacco use. Occasional alcohol use, but not on a regular basis. FAMILY HISTORY: Noncontributory. SOCIAL HISTORY: The patient hopes to return back home and get back to his prior level of functioning. REVIEW OF SYSTEMS: GENERAL: Does complain of some weakness and fatigue. HEENT: Denies cold, cough, or congestion. CARDIOVASCULAR: Denies chest pain. PHYSICAL EXAMINATION: VITAL SIGNS: Stable, afebrile. GENERAL: Elderly gentleman, in no acute distress upon exam. HEENT: Normocephalic and atraumatic. Mucosa moist. NECK: Supple. No lymphadenopathy. LUNGS: Clear at this time with no wheeze or rales. HEART: Regular rate and rhythm. No murmurs, rubs or gallops. ABDOMEN: Soft. His biliary drain is in place. Surgical area looks good. EXTREMITIES: No clubbing, cyanosis, or edema. NEUROLOGIC: He does have some noted weakness. LABORATORY DATA: White count is 11,000, H&H of 10 and 30, and platelet count is 176. His sodium is 136, potassium 4.1, BUN and creatinine of 12 and 0.7, and blood sugar is noted to be 168. 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 The patient has potential to make improvement. We will institute the following multidisciplinary therapies including, not limited to, physical, occupational, respiratory, speech, nutritional services, prosthetics and orthotics. Given his complex medical condition and risks for more complications, rehabilitation services cannot be provided at a low level of care such as snf facility. PLAN: 1. Admit to [facility] for an inpatient therapy to include the following disciplines: A. Physical therapy to improve gait, all transfer skills and bed mobility to a modified independent level. B. Occupational therapy to modified independent level. C. Case management to assist with discharge planning and placement options. D. Nutrition to assist with nutritional needs. E. Rehabilitation nursing to assist in monitoring the patient's underlying medical conditions and to assist with any type of bowel or bladder management. 2. The patient's current medications and medical care will be continued. 3. The patient will be placed on standard fall precautions. 4. The patient's estimated length of stay is approximately 7-10 days. 5. We will discuss this patient during care team staff meeting this week. I am going to go ahead and treat him with some nausea medications and see again in the a.m. HISTORY AND PHYSICAL [id number] NILAY FORRESTER TRANSINT:[id number] Voice Confirmation ID: [id number] DOCUMENT ID: [id number] NELLI notes whether there has been none or any medical/functional change since admission: - No change since preadmission screen. NELLI attests patient continues to be appropriate for IRF: - Continues to be appropriate. DOROTEO OTTO MD at 1035 CC: [id number] DICTATION DATE: 07/19/18 1055 SALES MERCHANDISER: 07/19/18 1143 ADM IN [facility] [address] [place] [address]
--- NOTE | 2018-07-30 17:50 | NUR ---
PT EATING DINNER, DENIES NEEDS. WCTM.
--- NOTE | 2018-07-30 19:30 | NUR ---
GREETED PATIENT AND INTRODUCED MYSELF HIS NURSE. PATIENT REPOSITIONED IN BED FOR COMFORT. DENIES ANY FURTHER NEEDS AT THIS TIME. CALL LIGHT IN REACH.
[2018-07-30 20:43] VITALS: BP 132/75
--- NOTE | 2018-07-31 00:34 | NUR ---
PATIENT RESTING QUIETLY WITH EYES CLOSED LAYING IN SUPINE POSITION. HOB AT 30 DEGREES. RESPIRATIONS EVEN. NO S/S OF DISTRESS. SR UP X 2. BED IN LOWEST POSITION. CALL LIGHT IN REACH.
[2018-07-31 06:43] LABS: CALC OSMOLALITY 274 mosm/kg (275-300); CALCIUM 8.8 mg/dL (8.5-10.1); CARBON DIOXIDE 24.4 mmol/L (21.0-32.0); CHLORIDE - SERUM 102 mmol/L (98-107); GLUCOSE 150 mg/dL (74-106); PHOSPHOROUS 3.5 mg/dL (2.5-4.9); POTASSIUM - SERUM 4.1 mmol/L (3.5-5.1); SODIUM 135 mmol/L (136-145); UREA NITROGEN 19 mg/dL (7-18); eGFR NON AFRICAN AMERICAN 86 mL/min (90-120)
[2018-07-31 06:44] LABS: CREATININE - SERUM 0.9 mg/dL (0.6-1.3)
[2018-07-31 07:29] VITALS: BP 98/60
--- NOTE | 2018-07-31 08:04 | NUR ---
RESTING QUIETLY IN BED WITH EYES CLOSED. RESP EFFORT NON LABORED. CALL LIGHT IN REACH
--- NOTE | 2018-07-31 12:10 | NUR ---
SITTING UP IN WC IN ROOM READING THE PAPER. IV OF TPN STILL INFUSING VIA LUE PICC. HAD BM THIS AM. MOD ASST TO TRANSFER. CALL LIGHT IN REACH
--- NOTE | 2018-07-31 17:16 | NUR ---
RESTING QUIETLY IN BED. EYES CLOSED. RESP EFFORT NON LABORED. USES URINAL IN BED. TPN INFUSING VIA LEFT AC. CALL LIGHT IN REACH. BED IN LOWEST POSITION. SIDE RAILS UP X2.
--- NOTE | 2018-07-31 20:00 | NUR ---
PT IS RESTING IN BED WITH EYES OPEN. ALERT AND ORIENTED X 3. DENIES ACUTE PAIN OR DISCOMFORT AT THIS TIME. VSS. LEFT ARM PICC LINE IS INFUSING TPN WITHOUT DIFFICULTY. PT IS NPO EXCEPT FOR SIPS AND ICE CHIPS. SR'S ARE UP X 3 IN BED. CALL LIGHT IS IN REACH.
--- NOTE | 2018-07-31 22:41 | NUR ---
PT IS RESTING QUIETLY IN BED WITH EYES CLOSED. RESPS ARE EVEN AND UNLABORED. NO ACUTE DISTRESS NOTED.
--- NOTE | 2018-08-01 02:38 | NUR ---
RESTING IN BED WITH EYES CLOSED AND RESPIRATIONS UNLABORED. TPN INFUSING TO PICC LINE IN LEFT ARM AT 75CC/HR. NO DISTRESS NOTED. CALL LIGHT IN REACH.
--- NOTE | 2018-08-01 04:59 | NUR ---
RESTING IN BED WITH EYES CLOSED.
[2018-08-01 06:06] LABS: BASOPHILS 0.3 % (0-2); EOSINOPHILS 1.4 % (0-7); HEMATOCRIT 29.7 % (42.0-54.0); HEMOGLOBIN 9.8 g/dL (13.5-17.5); IMMATURE GRANULOCYTES 0.6 % (0-5); LYMPHOCYTES 11.7 % (15-50); MCH 30.8 pg (26.0-34.0); MCV 93.4 fL (80.0-100.0); MEAN PLATELET VOLUME 11.2 fL (7.4-10.4); MONOCYTES 9.9 % (2-11); NEUTROPHILS 76.1 % (40-80); PLATELET COUNT 121 10x3/uL (130-400); RBC 3.18 10x6/uL (4.20-6.10); RDW 14.1 % (11.5-14.5); WBC 7.2 10x3/uL (4.8-10.8)
[2018-08-01 06:22] LABS: CALC OSMOLALITY 274 mosm/kg (275-300); CHLORIDE - SERUM 103 mmol/L (98-107); CREATININE - SERUM 0.8 mg/dL (0.6-1.3); GLUCOSE 152 mg/dL (74-106); MAGNESIUM - SERUM 2.1 mg/dL (1.8-2.4); POTASSIUM - SERUM 4.2 mmol/L (3.5-5.1); SODIUM 135 mmol/L (136-145); UREA NITROGEN 18 mg/dL (7-18); eGFR NON AFRICAN AMERICAN > 90 mL/min (90-120)
[2018-08-01 07:35] VITALS: BP 112/70
--- NOTE | 2018-08-01 16:18 | NUR ---
RESTING QUIETLY IN BED. TPN STILL INFUSING. USES URINAL IN BED. CALL LIGHT IN REACH
--- NOTE | 2018-08-01 19:20 | NUR ---
PT IS RESTING IN BED WITH EYES OPEN. ALERT AND ORIENTED X 3. DENIES ANY PAIN OR DISCOMFORT AT THIS TIME. PT VOICED CONCERN THAT HE FEELS HIS CONCERNS ARE NOT BEING TAKEN CARE OF. HE HAD REQUESTED TO SEE A STREET LIGHT CLEANER TODAY, BUT STATES NOBODY CARE TO SEE HIM. HE STATES HE WAS TOLD HE COULD START EATING DAYS AGO, BUT THIS HAS NOT STARTED. HE IS DEMANDING TO SEE SOMEBODY IN CHARGE TOMORROW, THAT CAN TAKE CARE OF HIS CONCERNS. VSS. TPN IS INFUSING TO LEFT ARM PICC LINE WITHOUT DIFFICULTY. SR'S ARE UP X 2 IN BED. CALL LIGHT AND BEDSIDE TABLE ARE WITHIN EASY REACH.
[2018-08-01 19:34] VITALS: BP 117/66
--- NOTE | 2018-08-01 19:39 | NUR ---
PATIENT IS RESTING IN HIS BED. HE APPEARS TO BE SLEEPING. HIS BED IS DOWN LOW WITH SIDE RAILS UP X2 AND CALL LIGHT IS IN REACH.
--- NOTE | 2018-08-01 21:24 | NUR ---
PT RESTING IN BED WITH EYES OPEN. NO ACUTE DISTRESS NOTED.
--- NOTE | 2018-08-02 00:01 | NUR ---
PT RESTING IN BED WITH EYES OPEN. NO NEEDS VOICED. USING URINAL PRN.
--- NOTE | 2018-08-02 02:53 | NUR ---
RESTING IN BED WITH EYES OPEN. URINALS EMPTIED. NO NEEDS VOICED.
--- NOTE | 2018-08-02 05:56 | NUR ---
PT RESTING IN BED WITH EYES OPEN. NO NEEDS VOICED.
[2018-08-02 08:00] VITALS: BP 132/79
--- NOTE | 2018-08-02 08:00 | NUR ---
UP OOB TO WC.VOIDED.SITTING UP AT BEDSIDE.CL IN REACH.TPN PATENT ORDERED
--- NOTE | 2018-08-02 12:00 | NUR ---
YUAN BLAND DIET.
--- NOTE | 2018-08-02 19:17 | NUR ---
PATIENT IS RESTING IN HIS BED. STATES HE HAS QUESTIONS FOR THE CLINICAL DIETICIAN ON SATURDAY. DENIES ANY OTHER NEEDS. BED IS DOWN LOW WITH SIDE RAILS UP X2, CALL LIGHT IS IN REACH.
--- NOTE | 2018-08-02 22:22 | NUR ---
RESTINB IN BED WITH EYES CLOSED.
--- NOTE | 2018-08-03 02:03 | NUR ---
RESTING IN BED WITH EYES CLOSED.
--- NOTE | 2018-08-03 06:09 | NUR ---
PT RESTING IN BED WITH EYES OPEN. LAB DRAWING AM LABS. NO NEEDS VOICED.
[2018-08-03 06:40] LABS: ALBUMIN 2.3 g/dL (3.4-5.0); ALKALINE PHOSPHATASE 82 U/L (46-116); ALT (SGPT) 27 U/L (10-68); BILIRUBIN - TOTAL 0.33 mg/dL (0.2-1.3); CALC OSMOLALITY 272 mosm/kg (275-300); CALCIUM 8.9 mg/dL (8.5-10.1); CARBON DIOXIDE 24.7 mmol/L (21.0-32.0); CHLORIDE - SERUM 104 mmol/L (98-107); CREATININE - SERUM 0.8 mg/dL (0.6-1.3); GLUCOSE 154 mg/dL (74-106); POTASSIUM - SERUM 4.1 mmol/L (3.5-5.1); PROTEIN - SERUM 6.9 g/dL (6.4-8.2); SODIUM 134 mmol/L (136-145); UREA NITROGEN 18 mg/dL (7-18); eGFR NON AFRICAN AMERICAN > 90 mL/min (90-120)
[2018-08-03 07:25] LABS: BASOPHILS 0.3 % (0-2); EOSINOPHILS 1.6 % (0-7); HEMATOCRIT 29.7 % (42.0-54.0); HEMOGLOBIN 9.7 g/dL (13.5-17.5); IMMATURE GRANULOCYTES 0.5 % (0-5); LYMPHOCYTES 10.8 % (15-50); MCH 30.5 pg (26.0-34.0); MCHC 32.7 g/dL (31.0-37.0); MCV 93.4 fL (80.0-100.0); MEAN PLATELET VOLUME 11.7 fL (7.4-10.4); MONOCYTES 11.3 % (2-11); NEUTROPHILS 75.5 % (40-80); PLATELET COUNT 116 10x3/uL (130-400); RBC 3.18 10x6/uL (4.20-6.10); RDW 14.1 % (11.5-14.5); WBC 7.7 10x3/uL (4.8-10.8)
--- NOTE | 2018-08-03 08:00 | NUR ---
SHIFT ASSMT COMPLETED.UP OOB TO BATHROOM.LARGE BM NOTED;LAZARO LIQUID.BREAKFAST TRAY GIVEN
[2018-08-03 08:03] VITALS: BP 122/66
--- NOTE | 2018-08-03 12:00 | NUR ---
SITTING UP IN BED EATING LUNCH.
--- NOTE | 2018-08-03 13:30 | NUR ---
YUAN MEALS BUT CONSUMED LESS THAN 25% OF MEAL;TOOK ONLY 1/8 OF GRILLED CHEESE.REORDERED BAKED CHICKEN AND ROLL;ATE APPRX 1 SMALL BITE OF ROLL AND 2 SMALL BITES OF CHICKEN AND CONSUMED 100% OF APPLESAUCE.HAS NOT C/O NAUSEA SINCE MEALS STARTED YESTERDAY AT NOON.
--- NOTE | 2018-08-03 18:30 | NUR ---
DC'D TPN.EATING APPROX 25% OF MEALS,NO C/O NAUSEA;NO VOMITING
--- NOTE | 2018-08-03 20:00 | NUR ---
PATIENT RECEIVED LAYING IN BED. ASSESSMENT & VITAL SIGNS DONE. PATIENT HAD NO C/O PAIN OR DISTRESS AT THIS TIME. IV PATENT & CONTINUES. BED LOW. BEDSIDE TABLE & CALL LIGHT WITHIN REACH. WILL CONTINUE TO MONITOR.
[2018-08-03 20:11] VITALS: BP 124/84
--- NOTE | 2018-08-04 00:15 | NUR ---
PATIENT BED BATH GIVEN. CLOTHING CHANGED. IV INFUSING. CALL LIGHT WITHIN REACH. WILL CONTINUE TO MONITOR.
--- NOTE | 2018-08-04 02:11 | NUR ---
RESTING IN BED. AWAKE BUT NO DISTRESS NOTED. STATES "I AM WARM AND BREATHING" IV INTACT. NO DISTRESS NOTED.
--- NOTE | 2018-08-04 03:55 | NUR ---
PATIENT EYES CLOSED. RESPIRATIONS 18 & EVEN. CALL LIGHT WITHIN REACH. WILL CONTINUE TO MONITOR.
[2018-08-04 06:20] LABS: BASOPHILS 0.1 % (0-2); EOSINOPHILS 1.2 % (0-7); HEMATOCRIT 30.1 % (42.0-54.0); HEMOGLOBIN 9.9 g/dL (13.5-17.5); IMMATURE GRANULOCYTES 0.5 % (0-5); LYMPHOCYTES 11.8 % (15-50); MCH 30.4 pg (26.0-34.0); MCHC 32.9 g/dL (31.0-37.0); MCV 92.3 fL (80.0-100.0); MEAN PLATELET VOLUME 11.4 fL (7.4-10.4); NEUTROPHILS 77.4 % (40-80); PLATELET COUNT 121 10x3/uL (130-400); RBC 3.26 10x6/uL (4.20-6.10); RDW 13.9 % (11.5-14.5); WBC 7.8 10x3/uL (4.8-10.8)
--- NOTE | 2018-08-04 06:21 | NUR ---
PATIENT IV DC'D. PICC LINE FLUSHED & CAPPED OFF. CALL LIGHT WITHIN REACH. WILL CONTINUE TO MONITOR.
[2018-08-04 06:31] LABS: ALBUMIN 2.4 g/dL (3.4-5.0); ALKALINE PHOSPHATASE 89 U/L (46-116); ALT (SGPT) 24 U/L (10-68); AMYLASE - SERUM 65 U/L (25-115); BILIRUBIN - TOTAL 0.38 mg/dL (0.2-1.3); CALC OSMOLALITY 271 mosm/kg (275-300); CALCIUM 8.9 mg/dL (8.5-10.1); CARBON DIOXIDE 21.9 mmol/L (21.0-32.0); CHLORIDE - SERUM 102 mmol/L (98-107); CREATININE - SERUM 0.8 mg/dL (0.6-1.3); GLUCOSE 113 mg/dL (74-106); LIPASE 260 U/L (73-393); PROTEIN - SERUM 7.2 g/dL (6.4-8.2); SODIUM 135 mmol/L (136-145); UREA NITROGEN 16 mg/dL (7-18); eGFR NON AFRICAN AMERICAN > 90 mL/min (90-120)
[2018-08-04 08:00] VITALS: BP 151/67
--- NOTE | 2018-08-04 08:05 | NUR ---
SITTING UP IN BED FOR BREAKFAST. FEEDS SELF. STATES HE IS NOT REALLY HUNGRY BUT WILL EAT SOME. ANXIOUS TO DC HOME TODAY. CALL LIGHT IN REACH
[2018-08-04] MEDS ORDERED: Pancrease 5000,17,00 PO (08:14)
[2018-08-04] MEDS ORDERED: PEPCID PO (08:14)
--- NOTE | 2018-08-04 10:29 | NUR ---
patient discharging home today with family. Kyaw at home will reume therapy at home. [facility] will deliver a rolling walke to patient. dr. shen 08/08/18 @ 11:45, dr. herring 08/21/18 @ 10:15. Patient Choice Form and IMFM forms signed, copy given to patient and filed in chart. Discharge instructions with FIM data faxed to PCP, Home health and reviewed with patient.
--- NOTE | 2018-08-04 13:19 | NUR ---
DC TO [facility] WITH ALL PERSONAL BELONGINGS. REPORT GIVEN TO FRANCISCA. REVIEWED HIS UPCOMING APPTS, DC PLAN AND MEDS. LEFT FLOOR IN WC.
== END 2018-08-04 12:50 | disposition home health service (06) | DRG 91 ==
LOC: D.REHAB 19:00
PROVIDERS: ADMIT Emergency Medicine; ATTEND Emergency Medicine
DX: G72.89 Other specified myopathies (principal); K85.91 Acute pancreatitis with uninfected necrosis, unspecified; R17 Unspecified jaundice; J90 Pleural effusion, not elsewhere classified; K80.10 Calculus of gallbladder with chronic cholecystitis without obstruction; K80.80 Other cholelithiasis without obstruction; C61 Malignant neoplasm of prostate; E78.5 Hyperlipidemia, unspecified; D72.829 Elevated white blood cell count, unspecified; R00.0 Tachycardia, unspecified; R50.82 Postprocedural fever; R11.2 Nausea with vomiting, unspecified; I10 Essential (primary) hypertension; K21.9 Gastro-esophageal reflux disease without esophagitis; R60.0 Localized edema

== ENCOUNTER 2018-08-08 11:30 | Inpatient (IN) | payer MEDICARE, BC ==
[~2018-08-08] VITALS: Ht 177.8 cm; Wt 93.6 kg
--- NOTE | ~2018-08-08 | HEMODYNAMI ---
PATIENT:NILAY FORRESTER MEDICAL RECORD: [id number] : 37 LOCATION:D.MS [address]2218 ADMISSION DATE: 08/08/18 Generatedon:09/08/201812:32 Patient name: NILAY FORRESTER Patient #: [id number] SSN: : 1935 Date of study: 09/08/2018 Page: Of Hemodynamic Procedure Report Patient Data Patient Demographics Procedure consent was obtained First Name: NILAY Gender: Male Last Name: MITZY : 1935 [facility] Initial: Martinez Age: 83 year(s) Patient #: [id number] Race: Unknown Additional ID: [id number] Contact details Address: [address] [place] [address] [place] [address] State: [place] City: [place] Zip code: [address] Admission Admission Data Admission Date: 08/08/2018 Admission Time: 14:14 Room #: .[facility]8 Procedure Procedure Types Cath Procedure Peripheral Cath Diagnostic Procedure Abscess Abscess Drain Injection Procedure Description Procedure Date Procedure Date: 09/08/2018 Procedure Start Time: 12:00 Procedure Staff Name Function Fernie Noonan MD Performing Physician Osmar Caal RT Monitor BOBBY SIMMONS RT Scrub Meliza Kingston RN Nurse Whitney Winslow RN Nurse Procedure Data Cath Procedure Fluoroscopy Diagnostic fluoroscopy Total fluoroscopy Time: 0 time: 0 min min Diagnostic fluoroscopy Total fluoroscopy dose: 157 dose: 157 mGy mGy Contrast Material Contrast Material Type Amount (ml) Isovue 300 20 Diagnostic catheters Device Type Used For End Catheter Placement Merit Impress KA 2 5Fr 40CM catheter ([id number]) Procedure Medications Medication Administration Route Dosage Heparin Flush Bag added to field 1 bags (1000units/500ml NS) Lidocaine 1% added to field 20 Versed I.V. 0.5 mg Fentanyl I.V. 25 mcg Hemodynamics Rest Heart Rate: 121 (bpm) Snapshots Pre Cath Intra NCS Post Cath Vital Signs Time Heart Resp SPO2 etCO2 NIBP (mmHg) Rhythm Pain Sedation Rate (ipm) (%) (mmHg) Status Level (bpm) 11:49:35 125 14 94 18.8 134/101(117) NSR 0 (11) 10(A) , No pain 11:53:40 121 25 94 19.6 135/99(117) NSR 0 (11) 10(A) , No pain 11:57:46 124 15 95 17.3 131/102(119) NSR 0 (11) 8(A) , No pain 12:01:52 122 31 95 11.3 133/101(118) NSR 0 (11) 8(A) , No pain 12:05:33 120 18 94 11.3 131/93(112) NSR 0 (11) 8(A) , No pain 12:09:39 122 16 94 0 134/98(118) NSR 0 (11) 8(A) , No pain 12:13:45 119 22 94 3.7 128/97(113) NSR 0 (11) 8(A) , No pain 12:17:51 119 18 94 0 128/96(108) NSR 0 (11) 8(A) , No pain 12:21:56 120 16 92 0 132/92(111) NSR 0 (11) 8(A) , No pain 12:26:04 117 17 93 0 129/91(105) NSR 0 (11) 8(A) , No pain 12:30:08 118 19 92 13.6 133/95(115) NSR 0 (11) 8(A) , No pain Medications Time Medication Route Dose Verified Delivered Reason Notes Effec tiveness by by 11:51:52 Heparin Flush added 1 Fernie Enciso used for Bag to bags Saran Noonan MD procedure (1000units/500ml field TAVAREZ NS) 11:52:09 Lidocaine 1% added 20ml Fernie Enciso used for to vial aSran Noonan MD procedure field TAVAREZ 11:54:19 Fentanyl I.V. 25 Fernie Olson for mcg Goldy Noonan RN sedation 11:54:47 Versed I.V. 0.5 Fernie Olson for mg Goldy Noonan RN sedation Procedure Log Time Note 11:39:08 Osmar Caal RT (R) (CV) sent for patient. Start room use. 11:39:17 Time tracking: Regular hours (M-F 7:00 - 5:00) 11:39:23 Plan of Care:Hemodynamics will remain stable., Cardiac rhythm will remain stable., Comfort level will be maintained., Respiratory function will remain adequate., Patient/ family verbilizes understanding of procedure., Procedure tolerated without complication., Recovers from procedure without complications.. 11:39:33 Patient received from Med/Surg to IR Alert and oriented. Tansferred to table in Supine position. 11:39:35 Correct patient and procedure confirmed by team. 11:39:37 Signed procedure consent form obtained from patient. 11:39:41 Use device set IR Diagnostic 11:39:43 Bag Decanter (2002S) opened to sterile field. 11:39:43 Sterile Angiographic Pack opened to sterile field. 11:39:44 Tegaderm 4 x 4 ([id number]) opened to sterile field. 11:39:51 ECG and BP/O2 sat monitors applied to patient. 11:39:53 - 11:39:53 Full Disclosure recording started 11:39:53 - 11:39:58 H&P Date Dictated: 09/08/2018 Within 30 days and on chart.. 11:39:58 Pre-procedure instructions explained to patient. 11:39:59 Pre-op teaching completed and patient verbalized understanding. 11:40:01 Family unavailable. 11:40:03 Patient NPO since Midnight. 11:40:08 Is the patient allergic to Iodine/contrast media? No. 11:40:10 Is patient on blood thinner?No 11:40:12 Patient diabetic? No. 11:40:16 ----Pre-sedation anethsthesia assessment.---- 11:40:20 Previous problem with sedation/anesthesia? No ? 11:40:22 Snore? Yes 11:40:23 Sleep apnea? No 11:40:25 Deviated septum? No 11:40:27 Opens mouth fully? Yes 11:40:31 Sticks out tongue? Yes 11:40:33 Airway obstruction? No ? 11:40:35 Dentures? No ? 11:41:38 IV patent on arrival in Left upper arm with 0.9% NaCl at [facility]. 11:41:43 Left abdomen area was prepped with chlora-prep and draped in sterile fashion 11:41:45 Alarms reviewed by R. N. 11:41:48 Sharps counted by scrub and verified by R.N. 11:48:34 Vital chart was started 11:48:35 Baseline sample Acquired. 11:51:52 Heparin Flush Bag (1000units/500ml NS) 1 bags added to field was administered by Fernie Noonan MD; used for procedure; 11:52:09 Lidocaine 1% 20ml vial added to field was administered by Fernie Noonan MD; used for procedure; 11:54:19 Fentanyl 25 mcg I.V. was administered by Whitney Winslow RN; for sedation; 11:54:47 Versed 0.5 mg I.V. was administered by Whitney Winslow RN; for sedation; 11:58:19 Physician arrived 11:58:20 --------ALL STOP TIME OUT------ 11:58:21 Final Timeout: patient, procedure, and site verified with staff and physician. All members of the team are in agreement. 11:58:27 Left abdomen site verified by team. 11:59:41 Maximum allowable Isovue 300 dose 158.7ml. Physician notified. (300ml for normal creatinines. For patients with creatinine of 1.7 or higher multiply weight(kg) x 5 divided by creatinine.) 11:59:46 Fire Safety Assessment: A--An alcohol-based skin anteseptic being used preoperatively., C--Open oxygen or nitrous oxide is being used. 11:59:50 Sedation plan: IV Moderate Sedation Medication:Versed, Fentanyl 12:00:08 BAG, DRAINAGE EMPTY 600ML W/ZAYNAB ([id number]) opened to sterile field. 12:00:21 Procedure started. 12:00:28 Local anesthetic to Abdominal area with Lidocaine 1% by Fernie Noonan MD.INITIAL ACCESS ONLY 12:04:27 BENTSON 145cm wire ([id number]) opened to sterile field. 12:06:07 STOPCOCK 3-Way Large Bore ([id number]) opened to sterile field. 12:06:11 A Merit Impress KA 2 5Fr 40CM catheter ([id number]) was advanced over the wire and used for . 12:08:14 GLIDE WIRE ANGLE 180cm ([id number]) opened to sterile field. 12:12:11 COOK MULTIPURPOSE 16FR DRAINAGE CATHETER opened to sterile field. 12:20:00 SUTURE ETHILON 2-0 BLK MONO FS opened to sterile field. 12:20:08 Procedure ended.(Physican Out) 12:20:28 Fluoroscopy time 00.00 minutes. 12:20:34 Fluoroscopy dose: 157 mGy 12:20:34 Flurop Dose total: 157 12:20:38 Contrast amount:Isovue 300 20ml. 12:20:40 Sharps counted by scrub and verified by R.N. 12:29:06 Insertion/operative site no bleeding no hematoma. 12:29:11 Post-op/insertion site Left Abdominal area dressed using a 4 x 4 and Tegaderm. 12:30:09 Post procedure instruction explained to patient.Patient verbalizes understanding. 12:30:11 Procedure and supply charges have been captured, reviewed, submitted an d are correct. 12:32:14 Report given to Med/Surg. 12:32:20 Patient transfered to Med/Surg with Bed. 12:32:44 Vital chart was stopped Device Usage Item Name Manufacture Quantity Catalog Hospital Part Current Minimal Lot# / Number Charge Number Stock Stock Serial# Code Bag Decanter Microtek 1 [id number] 5 () Medical Inc. Sterile Cardinal 1 [id number] 070140 [id number] 5 Angiographic Health Pack Tegaderm 4 x 3M 1 1626W 269140 694782 [id number] 5 4 (1626W) BAG, Merit 1 [id number] 992290 993895 [id number] 5 DRAINAGE Medical EMPTY 600ML W/ZAYNAB ([id number]) BENTSON [employer] 1 [id number] 678555 491779 5 145cm wire ([id number]) STOPCOCK [employer] Medical 1 [id number] 602687 4267 [id number] [id number] 3-Way Large Bore ([id number]) Merit Merit 1 [id number] 189346 502649 5 Impress KA 2 Medical 5Fr 40CM catheter ([id number]) GLIDE WIRE Terumo 1 [id number] 795218 169341 499998 5 ANGLE 180cm ([id number]) [employer] 1 [id number] 998053 5675 164719 1 [id number] MULTIPURPOSE 16FR DRAINAGE CATHETER SUTURE Ethicon 1 [id number] 706360 [id number] 5 ETHILON 2-0 BLK MONO FS Signature Audit [place] Stage Time Signature Unsigned Intra-Procedure 09/08/2018 Osmar 12:32:40 PM Ten RT (R) (CV) Signatures Monitor : Osmar Signature : Ten RT Date : Time : [place] [address] [place] [address]
[~2018-08-08 11:30] MED LIST changes: +Pancrease 5000,17,00 PO
[2018-08-08 12:47] LABS: HEMOGLOBIN 10.6 g/dL (13.5-17.5); MCH 30.5 pg (26.0-34.0); MCHC 33.1 g/dL (31.0-37.0); MEAN PLATELET VOLUME 11.3 fL (7.4-10.4); PLATELET COUNT 139 10x3/uL (130-400); RBC 3.48 10x6/uL (4.20-6.10); RDW 14.1 % (11.5-14.5); WBC 32.7 10x3/uL (4.8-10.8)
[2018-08-08 13:00] LABS: ALBUMIN 2.3 g/dL (3.4-5.0); ALKALINE PHOSPHATASE 86 U/L (46-116); ALT (SGPT) 23 U/L (10-68); BILIRUBIN - TOTAL 0.57 mg/dL (0.2-1.3); CALC OSMOLALITY 271 mosm/kg (275-300); CALCIUM 9.1 mg/dL (8.5-10.1); CARBON DIOXIDE 24.1 mmol/L (21.0-32.0); CHLORIDE - SERUM 102 mmol/L (98-107); CREATININE - SERUM 0.9 mg/dL (0.6-1.3); GLUCOSE 127 mg/dL (74-106); LIPASE 170 U/L (73-393); POTASSIUM - SERUM 3.6 mmol/L (3.5-5.1); SODIUM 134 mmol/L (136-145); UREA NITROGEN 18 mg/dL (7-18); eGFR NON AFRICAN AMERICAN 86 mL/min (90-120)
[2018-08-08 13:30] LABS: LYMPHOCYTES 2 % (15-50); MONOCYTES 1 % (2-11); NEUTROPHILS 96 % (40-80)
[2018-08-08 13:31] LABS: PLATELET ESTIMATE NORMAL
[2018-08-08 14:28] VITALS: BP 118/74
--- NOTE | 2018-08-08 14:39 | NUR ---
PT UNABLE TO PROVIDE URINE SAMPLE AT THIS TIME.
--- NOTE | 2018-08-08 15:18 | MORECARE ---
CASE MANAGEMENT DISCHARGE SUMMARY PATIENT: NILAY FORRESTER UNIT: [id number] ADM DATE: 08/08/18 AGE: 83 : 36 SEX: M ROOM/BED: D.2218 AUTHOR: LEONARDO CELAYA PHYSICIAN: REFERRING PHYSICIAN: HERBERTH WILSON MD DATE OF SERVICE: 08/08/18 Discharge Plan Patient Name: NILAY FORRESTER Facility: [facility]:[place] : 1935 Planned Disposition: Assisted Living Anticipated Discharge Date: 08/11/18 Discharge Date: Expected LOS: 3 Initial Reviewer: [email or web address] Initial Review Date: 08/08/2018 Generated: 08/08/18 4:17 pm Patient Name: NILAY FORRESTER Page [id number] at 1518 All edits/amendments must be made on the electronic document DICTATION DATE: 08/08/181516 TURN MACHINE OPERATOR: DEMIAN 08/08/181516 RPT#: [id number] DC DATE: STATUS: ADM IN [facility] [address] [place] [address] END OF REPORT
--- NOTE | 2018-08-08 15:28 | MORECARE ---
CASE MANAGEMENT DISCHARGE SUMMARY PATIENT: NILAY FORRESTER UNIT: [id number] ADM DATE: 08/08/18 AGE: 83 : 36 SEX: M ROOM/BED: D.2218 AUTHOR: LEONARDO CELAYA PHYSICIAN: REFERRING PHYSICIAN: HERBERTH WILSON MD DATE OF SERVICE: 08/08/18 Discharge Plan Patient Name: NILAY FORRESTER [facility] [facility] 1935 Planned Disposition: Assisted Living Anticipated Discharge Date: 08/11/18 Discharge Date: Expected LOS: 3 Initial Reviewer: [email or web address] Initial Review Date: 08/08/2018 Generated: 08/08/18 4:28 pm DCPIA - Discharge Planning Initial Assessment Updated by [email or web address]: Selena Mccartney on 08/08/18 3:19 pm * Is the patient Alert and Oriented? Yes * How many steps to enter\exit or inside your home? None * PCP Dr. Patel * Pharmacy [facility]. * Preadmission Environment Assisted Living * Facility Name [facility] * ADLs Partial Dependent * Partial ADLs (Assistance needed) Ambulation Medication Management * Equipment Rolling Walker Wheelchair * List name and contact numbers for known caregivers / representatives who currently or will assist patient after discharge: Ade Diggs - [phone] Berny Diggs son - [phone] * Please name any agencies selected above. [facility] singed in ER for resumption at time of discharge. * Additional services required to return to the preadmission environment? No * Can the patient safely return to the preadmission environment? Yes * Has this patient been hospitalized within the prior 30 days at any hospital? Yes Last DP export: 08/08/18 2:18 p Patient Name: NILAY FORRESTER Page [phone] at 1528 All edits/amendments must be made on the electronic document DICTATION DATE: 08/08/18 1527 BRICK SORTER: DEMIAN 08/08/18 1527 RPT#: [id number] DC DATE: STATUS: ADM IN [facility] [address] [place] [address] END OF REPORT
--- NOTE | 2018-08-08 15:35 | NUR ---
MERREM COMPLETED AT 1445
[2018-08-08 16:05] LABS: % SATURATION 7 % (15-55); IRON 9 ug/dl (35-150); TOTAL IRON BIND CAPACITY 128 ug/dl (260-445); UNSAT IRON BIND CAPACITY 119 ug/dl (150-375)
--- NOTE | 2018-08-08 16:30 | NUR ---
[facility] COMING TO [facility]OR.
--- NOTE | 2018-08-08 19:15 | NUR ---
RECEIVED REPORT, ASSUMED CARE, A&O, DENIES NEEDS, CALL LIGHT IN REACH, BED LOWEST POSITION, URNIAL AT BEDSIDE, ASSESSMENT COMPLETE, WILL CONTINUE POC
[2018-08-08 20:00] VITALS: BP 116/80
[2018-08-08 21:23] VITALS: BP 116/80; BMI 27.1
[2018-08-09] VITALS: BP 114/87
[2018-08-09 03:00] VITALS: BP 129/71
--- NOTE | 2018-08-09 05:34 | NUR ---
I have reviewed this patient and I concur with the Shift Assessment completed by the Licensed Practical Nurse today this shift.
[2018-08-09 05:48] LABS: INR 1.48 (0.85-1.17); PROTIME 17.3 SECONDS (11.6-15.0)
[2018-08-09 05:49] LABS: APTT 31.1 SECONDS (22.8-39.4)
[2018-08-09 05:55] LABS: BASOPHILS 0 % (0-2); EOSINOPHILS 0.4 % (0-7); HEMATOCRIT 29.3 % (42.0-54.0); HEMOGLOBIN 9.6 g/dL (13.5-17.5); IMMATURE GRANULOCYTES 0.5 % (0-5); LYMPHOCYTES 2.3 % (15-50); MCH 29.9 pg (26.0-34.0); MCHC 32.8 g/dL (31.0-37.0); MCV 91.3 fL (80.0-100.0); MEAN PLATELET VOLUME 11.4 fL (7.4-10.4); MONOCYTES 5.8 % (2-11); PLATELET COUNT 146 10x3/uL (130-400); RBC 3.21 10x6/uL (4.20-6.10); RDW 14.4 % (11.5-14.5)
[2018-08-09 05:59] LABS: ALKALINE PHOSPHATASE 76 U/L (46-116); ALT (SGPT) 21 U/L (10-68); BILIRUBIN - TOTAL 0.49 mg/dL (0.2-1.3); CALC OSMOLALITY 278 mosm/kg (275-300); CALCIUM 8.7 mg/dL (8.5-10.1); CARBON DIOXIDE 24.6 mmol/L (21.0-32.0); CHLORIDE - SERUM 107 mmol/L (98-107); CREATININE - SERUM 0.8 mg/dL (0.6-1.3); GLUCOSE 101 mg/dL (74-106); MAGNESIUM - SERUM 1.8 mg/dL (1.8-2.4); PHOSPHOROUS 2.4 mg/dL (2.5-4.9); POTASSIUM - SERUM 3.3 mmol/L (3.5-5.1); PROTEIN - SERUM 6.2 g/dL (6.4-8.2); SODIUM 139 mmol/L (136-145); UREA NITROGEN 15 mg/dL (7-18); eGFR NON AFRICAN AMERICAN > 90 mL/min (90-120)
[2018-08-09 08:05] LABS: APPEARANCE CLEAR (CLEAR); BILIRUBIN NEGATIVE (NEGATIVE); COLOR YELLOW (YELLOW); GLUCOSE NEGATIVE (NEGATIVE); KETONE NEGATIVE (NEGATIVE); NITRITE NEGATIVE (NEGATIVE); PROTEIN NEGATIVE (NEGATIVE)
[2018-08-09 08:13] LABS: FOLATE (FOLIC ACID) - SERUM 8.9 ng/mL (>3.0)
[2018-08-09 09:09] VITALS: BP 126/69
--- NOTE | 2018-08-09 10:45 | NUR ---
ALERT AND ORIENTED X3. ABDOMEN SOFT WITH BS NOTED. LUNGS CTA. PROCEEDING WITH LECECTROLYTE PROTOCOL FOR HYPOKALEMIA,HYPOMANESIUM AND HYPOPHOSPHATE. NO S/S OF IMBALANCE AT THIS TIME. FALL RISK PRECAUTIONS IN PLACE. CONTINUED NPO DUE TO PENDING PROCEDURE. ENCOURAGED TO USE CALL LIGHT FOR ASSIST.
[2018-08-09 12:50] VITALS: BP 138/46
[2018-08-09 17:57] VITALS: BP 166/85
[2018-08-10 00:20] VITALS: BP 172/90
--- NOTE | 2018-08-10 01:10 | NUR ---
I have reviewed this patient and I concur with the Shift Assessment completed by the Licensed Practical Nurse today this shift.
[2018-08-10 05:47] LABS: ALBUMIN 1.8 g/dL (3.4-5.0); ALKALINE PHOSPHATASE 90 U/L (46-116); ALT (SGPT) 21 U/L (10-68); BILIRUBIN - TOTAL 0.28 mg/dL (0.2-1.3); CALC OSMOLALITY 277 mosm/kg (275-300); CALCIUM 8.7 mg/dL (8.5-10.1); CARBON DIOXIDE 25.4 mmol/L (21.0-32.0); CHLORIDE - SERUM 105 mmol/L (98-107); CREATININE - SERUM 0.6 mg/dL (0.6-1.3); GLUCOSE 121 mg/dL (74-106); PHOSPHOROUS 2.8 mg/dL (2.5-4.9); POTASSIUM - SERUM 3.5 mmol/L (3.5-5.1); PROTEIN - SERUM 6.1 g/dL (6.4-8.2); SODIUM 138 mmol/L (136-145); UREA NITROGEN 14 mg/dL (7-18); eGFR NON AFRICAN AMERICAN > 90 mL/min (90-120)
[2018-08-10 05:49] LABS: HEMATOCRIT 30.4 % (42.0-54.0); HEMOGLOBIN 9.8 g/dL (13.5-17.5); MCH 29.8 pg (26.0-34.0); MCHC 32.2 g/dL (31.0-37.0); MCV 92.4 fL (80.0-100.0); MEAN PLATELET VOLUME 11.3 fL (7.4-10.4); PLATELET COUNT 151 10x3/uL (130-400); RBC 3.29 10x6/uL (4.20-6.10); RDW 14.4 % (11.5-14.5); WBC 22.1 10x3/uL (4.8-10.8)
[2018-08-10 05:55] VITALS: BP 150/68
[2018-08-10 07:18] LABS: LYMPHOCYTES 6 % (15-50); MONOCYTES 7 % (2-11); NEUTROPHILS 82 % (40-80); PLATELET ESTIMATE NORMAL
[2018-08-10 08:13] VITALS: BP 151/84
--- NOTE | 2018-08-10 10:44 | NUR ---
ALERT AND ORIENTED WITH INTERMITTANT NAUSEA WITH ZOFRAN GTT INFUSING. IVF INFUSING AT PRESCRIBED RATE. LUNGS CTA, ABD SOFT WITH SLIGHT TENDERNESS TO LUQ ANTERIOR WITH MORPHINE GIVEN PRN PAIN MANAGEMENT. ENCOURAGED TO USE CALL LIGHT FOR ASSSIT WITH FALL PRESCAUTIONS IN PLACE.
[2018-08-10 12:37] VITALS: BP 148/82
[2018-08-10 16:29] VITALS: BP 164/84
--- NOTE | 2018-08-10 17:13 | MORECARE ---
CASE MANAGEMENT DISCHARGE SUMMARY PATIENT: NILAY FORRESTER UNIT: [id number] ADM DATE: 08/08/18 AGE: 83 : 36 SEX: M ROOM/BED: D.2218 AUTHOR: LEONARDO CELAYA PHYSICIAN: REFERRING PHYSICIAN: HERBERTH WILSON MD DATE OF SERVICE: 08/10/18 Discharge Plan Patient Name: NILAY FORRESTER Facility: [facility]:[place] : 1935 Planned Disposition: Assisted Living Anticipated Discharge Date: 08/11/18 Discharge Date: Expected LOS: 3 Initial Reviewer: [email or web address] Initial Review Date: 08/08/2018 Generated: 08/10/18 6:13 pm DCP- Discharge Planning Updated by [email or web address]: Selena Mccartney on 08/08/18 2:[address] Patient Name: NILAY FORRESTER Admission Status: ER Accout number: [id number] Admission Date: 08-08-2018 : 1935 Admission Diagnosis: Attending: HERBERTH WILSON Current LOS: 1 Anticipated DC Date: 08-11-2018 Planned Disposition: Assisted Living Primary Insurance: MEDICARE A & B Discharge Planning Comments: CM met with patient to complete initial dc planning assessment. CM educated patient on the CM role and verbal consent given by patient to complete assessment. CM verified patient's address, phone number, and emergency contact phone numbers. Patient lives at [facility] with his . Patient currently has [facility] and wishes to resume at discharge. MARY form signed by patient for resumption of [facility]. Signed form placed in chart and signed form given to patient. At discharge patient plans to return [facility] and feels this is a safe discharge. Patient denied further known discharge needs at this time. . Patient reports [facility] will transport him home at time of discharge.CM will continue to follow and will assist as needed with dc plans/needs. Nuclear Powerplant Mechanic Helper: Selena Mccartney RN, [facility] DCPIA - Discharge Planning Initial Assessment Updated by [email or web address]: Selena Mccartney on 08/08/18 3:19 pm * Is the patient Alert and Oriented? Yes * How many steps to enter\exit or inside your home? None * PCP Dr. Patel * Pharmacy [facility] on [address]. * Preadmission Environment Assisted Living * Facility Name [facility] * ADLs Partial Dependent * Partial ADLs (Assistance needed) Ambulation Medication Management * Equipment Rolling Walker Wheelchair * List name and contact numbers for known caregivers / representatives who currently or will assist patient after discharge: Ade Diggs - [phone] Berny Diggs son - [phone] * Please name any agencies selected above. [facility] singed in ER for resumption at time of discharge. * Additional services required to return to the preadmission environment? No * Can the patient safely return to the preadmission environment? Yes * Has this patient been hospitalized within the prior 30 days at any hospital? Yes Last DP export: 08/08/18 2:28 p Patient Name: NILAY FORRESTER Page [id number] at 1713 All edits/amendments must be made on the electronic document DICTATION DATE: 08/10/181712 HOME THERAPY CLINICIAN: DEMIAN 08/10/181712 RPT#: [id number] DC DATE: STATUS: ADM IN [facility] [address] [place] [address] END OF REPORT
--- NOTE | 2018-08-10 17:20 | MORECARE ---
CASE MANAGEMENT DISCHARGE SUMMARY PATIENT: NILAY FORRESTER UNIT: [id number] ADM DATE: 08/08/18 AGE: 83 : 36 SEX: M ROOM/BED: D.2218 AUTHOR: LEONARDO CELAYA PHYSICIAN: REFERRING PHYSICIAN: HERBERTH WILSON MD DATE OF SERVICE: 08/10/18 Discharge Plan Patient Name: NILAY FORRESTER Facility: [facility]:[place] : 1935 Planned Disposition: Assisted Living Anticipated Discharge Date: 08/11/18 Discharge Date: Expected LOS: 3 Initial Reviewer: [email or web address] Initial Review Date: 08/08/2018 Generated: 08/10/18 6:19 pm Comments DCP- Discharge Planning Updated by [email or web address]: Adelaida Aj on 08/10/18 4:[address] CM RECEIVED AN ORDER FOR DISCHARGE PLANNING. THIS PATIENT WAS SEEN IN THE ER FOR DISCHARGE PLANNING. HE LIVES AT [facility] WITH HIS ON THE 3RD FLOOR. HAS [facility].PLANS FOR RESUMPTION OF CARE AT DISCHARGE.PCP- DR PINEDO. PHARMACY - [facility]. WILL HAVE TRANSPORTATION TO HOME. HE IS SITTINGUP AT A 90 DEGREES IN BED. STATES HE IS VERY, VERY NAUSEOUS. CM WILL FOLLOW TO ASSIST IS APPROPRIATE. DCP- Discharge Planning Updated by [email or web address]: Selena Mccartney on 08/08/18 2:[address] Patient Name: NILAY FORRESTER Admission Status: ER Accout number: [id number] Admission Date: 08-08-2018 : 1935 Admission Diagnosis: Attending: HERBERTH WILSON Current LOS: 1 Anticipated DC Date: 08-11-2018 Planned Disposition: Assisted Living Primary Insurance: MEDICARE A & B Discharge Planning Comments: CM met with patient to complete initial dc planning assessment. CM educated patient on the CM role and verbal consent given by patient to complete assessment. CM verified patient's address, phone number, and emergency contact phone numbers. Patient lives at [facility] with his . Patient currently has [facility] and wishes to resume at discharge. MARY form signed by patient for resumption of [facility]. Signed form placed in chart and signed form given to patient. At discharge patient plans to return [facility] and feels this is a safe discharge. Patient denied further known discharge needs at this time. . Patient reports [facility] will transport him home at time of discharge.CM will continue to follow and will assist as needed with dc plans/needs. Jointer Machine: Selena Mccartney RN, [facility] DCPIA - Discharge Planning Initial Assessment Updated by [email or web address]: Selena Mccartney on 08/08/18 3:19 pm * Is the patient Alert and Oriented? Yes * How many steps to enter\exit or inside your home? None * PCP Dr. Pinedo * Pharmacy [facility] [address]. * Preadmission Environment Assisted Living * Facility Name [facility] * ADLs Partial Dependent * Partial ADLs (Assistance needed) Ambulation Medication Management * Equipment Rolling Walker Wheelchair * List name and contact numbers for known caregivers / representatives who currently or will assist patient after discharge: Ade Byrd - [phone] Berny Diggs son - [phone] * Please name any agencies selected above. [facility] singed in ER for resumption at time of discharge. * Additional services required to return to the preadmission environment? No * Can the patient safely return to the preadmission environment? Yes * Has this patient been hospitalized within the prior 30 days at any hospital? Yes Last DP export: 08/10/18 4:13 p Patient Name: NILAY FORRESTER Page [phone] at 1720 All edits/amendments must be made on the electronic document DICTATION DATE: 08/10/181718 PUTTY MIXER: DEMIAN 08/10/181718 RPT#: [id number] DC DATE: STATUS: ADM IN [facility] [address] [place] [address] END OF REPORT
--- NOTE | 2018-08-10 18:34 | NUR ---
ATTEMPTED X2 FOR N/G TUBE PLACEMENT UNSUCCESSFUL WITH PT. REFUSING FURTHER ATTEMPTS./ dR. WILSON NOTIFIED AND STATED OK WITH PT REQUEST.
--- NOTE | 2018-08-10 19:15 | NUR ---
RECEIVED CARE FROM DAY NURSE. LYING IN BED. NO NEEDS VOICED AT THIS TIME. CALL LIGHT AT SIDE. IV INFUSING PER ORDER TO PATENT LEFT FAL.
[2018-08-10 21:07] VITALS: BP 161/96
[2018-08-11 01:43] VITALS: BP 160/80
--- NOTE | 2018-08-11 02:17 | NUR ---
C/O FEELING BURNING IN HIS UPPER ABDOMEN AND TOO MUCH ACID. PT REPORTS HE CAN NOT TAKE HIS PROTONIX BECAUSE IT COMES RIGHT BACK UP. INSTRUCTED PT THAT HE MAY NEED IT IV. PT ASK IF THERE IS ANYONE HERE THAT CAN DO THAT NOW. TOLD PT NO BUT IF NEEDED A DOCTOR COULD BE CALLED FOR AN ORDER. PT DOES NOT WANT THE DR CALLED AT THIS TIME. INSTRUCTED PT TO SPEAK WITH DR IN THE AM WHEN THEY ROUND.
[2018-08-11 05:18] LABS: BASOPHILS 0.1 % (0-2); EOSINOPHILS 0.3 % (0-7); HEMATOCRIT 31.5 % (42.0-54.0); HEMOGLOBIN 10.3 g/dL (13.5-17.5); IMMATURE GRANULOCYTES 1.3 % (0-5); LYMPHOCYTES 3.2 % (15-50); MCH 30.1 pg (26.0-34.0); MCHC 32.7 g/dL (31.0-37.0); MCV 92.1 fL (80.0-100.0); MEAN PLATELET VOLUME 11.2 fL (7.4-10.4); MONOCYTES 5.3 % (2-11); NEUTROPHILS 89.8 % (40-80); PLATELET COUNT 158 10x3/uL (130-400); RBC 3.42 10x6/uL (4.20-6.10); RDW 14.4 % (11.5-14.5); WBC 20.2 10x3/uL (4.8-10.8)
[2018-08-11 05:36] VITALS: BP 160/88
[2018-08-11 05:47] LABS: ALBUMIN 1.8 g/dL (3.4-5.0); ALKALINE PHOSPHATASE 89 U/L (46-116); BILIRUBIN - TOTAL 0.31 mg/dL (0.2-1.3); CALC OSMOLALITY 275 mosm/kg (275-300); CALCIUM 8.3 mg/dL (8.5-10.1); CARBON DIOXIDE 27.4 mmol/L (21.0-32.0); CHLORIDE - SERUM 103 mmol/L (98-107); CREATININE - SERUM 0.7 mg/dL (0.6-1.3); GLUCOSE 124 mg/dL (74-106); POTASSIUM - SERUM 3.2 mmol/L (3.5-5.1); PROTEIN - SERUM 6.2 g/dL (6.4-8.2); SODIUM 137 mmol/L (136-145); UREA NITROGEN 14 mg/dL (7-18); eGFR NON AFRICAN AMERICAN > 90 mL/min (90-120)
[2018-08-11 05:48] LABS: ALT (SGPT) 31 U/L (10-68)
[2018-08-11 08:09] VITALS: BP 143/91
[2018-08-11 12:11] VITALS: BP 128/61
[2018-08-11 12:18] VITALS: BMI 27.1
[2018-08-11 15:41] VITALS: BP 139/87
--- NOTE | 2018-08-11 18:18 | NUR ---
I have reviewed this patient and I concur with the Shift Assessment completed by the Licensed Practical Nurse today this shift.
--- NOTE | 2018-08-11 20:00 | NUR ---
ASSESSMENT PER FLOWSHEET. IV PATENT LEFT ARM OF ZOFRAN 4.7CC'S/HR. TPN INFUSING AT 50CC'S/HR. RA MAT IN PLACE ALARMS SET YELLOW SAFETY MEASURES IN USE. SR UP X2 CALL LIGHT WITHIN REACH.
[2018-08-11 20:52] VITALS: BP 146/84
--- NOTE | 2018-08-11 22:00 | NUR ---
MEDS PER FLOWHEET.
--- NOTE | 2018-08-12 | NUR ---
PRBG=[id number] NO COVERAGE NEEDED.
[2018-08-12 00:53] VITALS: BP 151/89
--- NOTE | 2018-08-12 03:00 | NUR ---
VOIDS WELL IN URINAL.
[2018-08-12 04:20] LABS: BASOPHILS 0.1 % (0-2); EOSINOPHILS 1.1 % (0-7); HEMATOCRIT 31.1 % (42.0-54.0); HEMOGLOBIN 10.1 g/dL (13.5-17.5); IMMATURE GRANULOCYTES 2.7 % (0-5); LYMPHOCYTES 6.5 % (15-50); MCH 29.5 pg (26.0-34.0); MCHC 32.5 g/dL (31.0-37.0); MCV 90.9 fL (80.0-100.0); MEAN PLATELET VOLUME 11.1 fL (7.4-10.4); MONOCYTES 6.9 % (2-11); NEUTROPHILS 82.7 % (40-80); PLATELET COUNT 153 10x3/uL (130-400); RBC 3.42 10x6/uL (4.20-6.10); RDW 14.4 % (11.5-14.5); WBC 15.7 10x3/uL (4.8-10.8)
[2018-08-12 04:35] LABS: ALBUMIN 1.7 g/dL (3.4-5.0); ALKALINE PHOSPHATASE 87 U/L (46-116); ALT (SGPT) 27 U/L (10-68); BILIRUBIN - TOTAL 0.28 mg/dL (0.2-1.3); CALC OSMOLALITY 274 mosm/kg (275-300); CALCIUM 8.2 mg/dL (8.5-10.1); CARBON DIOXIDE 26.4 mmol/L (21.0-32.0); CHLORIDE - SERUM 104 mmol/L (98-107); CREATININE - SERUM 0.6 mg/dL (0.6-1.3); GLUCOSE 161 mg/dL (74-106); MAGNESIUM - SERUM 1.9 mg/dL (1.8-2.4); POTASSIUM - SERUM 3.3 mmol/L (3.5-5.1); PROTEIN - SERUM 5.9 g/dL (6.4-8.2); SODIUM 136 mmol/L (136-145); TRIGLYCERIDE 94 mg/dL (30-200); UREA NITROGEN 12 mg/dL (7-18); eGFR NON AFRICAN AMERICAN > 90 mL/min (90-120)
[2018-08-12 04:48] LABS: APTT 31.2 SECONDS (22.8-39.4); INR 1.3 (0.85-1.17); PROTIME 15.7 SECONDS (11.6-15.0)
--- NOTE | 2018-08-12 05:12 | NUR ---
REMAINS NPO FOR IR PROCEDURE PERMITS SIGNED AND WITNESSED AND PLACED ON CHART. VOIDS WELL IN URINAL.
[2018-08-12 05:42] VITALS: BP 160/96
[2018-08-12 09:13] VITALS: BP 140/82
[2018-08-12 14:08] VITALS: BP 134/99
[2018-08-12 17:47] VITALS: BP 129/77
--- NOTE | 2018-08-12 18:45 | NUR ---
I have reviewed this patient and I concur with the Shift Assessment completed by the Licensed Practical Nurse today this shift.
--- NOTE | 2018-08-12 20:00 | NUR ---
ASSESSMENT PER FLOWSHEET. IV PATENT LEFT UPPER ARM PICC LINE OF TPN AT 50CC'S/HR AND ZOFRAN GTT AT 4.7CC'S/HR. REFUSES SCD'S. RA BED ALARM MAT ON. SR UP X2 CALL LIGHT WITHIN REACH. VOIDS IN URINAL.
--- NOTE | 2018-08-12 21:15 | NUR ---
WANTING TO SPEAK WITH HOME TEACHING GRADES 9 THRU 12 TEACHER. VOICED HIS CONCERNS THAT MD HAS NOT TALKED TO HIM ABOUT WHAT IS GOING ON AND THE PLANS. HOME TEACHING GRADES 9 THRU 12 TEACHER HERE TO SPEAK WITH PATIENT.
[2018-08-12 21:18] VITALS: BP 135/89
--- NOTE | 2018-08-13 00:30 | NUR ---
KJMD=[id number].NO COVERAGE NEEDED.
--- NOTE | 2018-08-13 00:35 | NUR ---
WYVM=[id number]. NO COVERAGE
--- NOTE | 2018-08-13 01:19 | NUR ---
EYES CLOSED RESPIRATIONS WITH EASE AND UNLABORED.
[2018-08-13 01:20] VITALS: BP 127/89
[2018-08-13 05:32] LABS: ALBUMIN 1.9 g/dL (3.4-5.0); ALKALINE PHOSPHATASE 85 U/L (46-116); BILIRUBIN - TOTAL 0.23 mg/dL (0.2-1.3); CALC OSMOLALITY 272 mosm/kg (275-300); CALCIUM 8.3 mg/dL (8.5-10.1); CARBON DIOXIDE 24.8 mmol/L (21.0-32.0); CHLORIDE - SERUM 103 mmol/L (98-107); CREATININE - SERUM 0.7 mg/dL (0.6-1.3); GLUCOSE 150 mg/dL (74-106); POTASSIUM - SERUM 3.3 mmol/L (3.5-5.1); PROTEIN - SERUM 6.1 g/dL (6.4-8.2); SODIUM 135 mmol/L (136-145); UREA NITROGEN 12 mg/dL (7-18); eGFR NON AFRICAN AMERICAN > 90 mL/min (90-120)
[2018-08-13 05:37] LABS: BASOPHILS 0.5 % (0-2); EOSINOPHILS 2.3 % (0-7); HEMATOCRIT 33.2 % (42.0-54.0); HEMOGLOBIN 10.9 g/dL (13.5-17.5); IMMATURE GRANULOCYTES 4.8 % (0-5); LYMPHOCYTES 9.6 % (15-50); MCH 29.9 pg (26.0-34.0); MCHC 32.8 g/dL (31.0-37.0); MCV 91.2 fL (80.0-100.0); MONOCYTES 9.3 % (2-11); NEUTROPHILS 73.5 % (40-80); PLATELET COUNT 159 10x3/uL (130-400); RBC 3.64 10x6/uL (4.20-6.10); RDW 14.6 % (11.5-14.5); WBC 13.2 10x3/uL (4.8-10.8)
[2018-08-13 05:40] LABS: ALT (SGPT) 37 U/L (10-68); PHOSPHOROUS 2.7 mg/dL (2.5-4.9)
[2018-08-13 05:58] VITALS: BP 152/86
--- NOTE | 2018-08-13 08:09 | NUR ---
Nutrition follow-up: Chart reviewed TPN currently infusing @ 40 ml/hr; glucose under good control TPN increased to 80 ml/hr with 20% 250 ml intralipids Q 72 hours to better meet pts estimated energy needs. RDN following.
--- NOTE | 2018-08-13 08:35 | NUR ---
SHOWER AND LINEN CHANGED AT THIS TIME. C/L IN REACH AT BEDSIDE.
[2018-08-13 09:47] VITALS: BP 137/86
--- NOTE | 2018-08-13 11:12 | NUR ---
Rehab Prescreening Consult recieved and the chart has been reviewed. He just recently discharged from the ARU and is a readmission. He has not been able to participate with therapy since readmit due to pain, nausea or procedures. Rehab will continue to follow. Padmaja Alamo RN Clinical Liaison, Rehab
[2018-08-13 12:00] VITALS: BP 123/86
--- NOTE | 2018-08-13 16:35 | NUR ---
I have reviewed this patient and I concur with the Shift Assessment completed by the Licensed Practical Nurse today this shift.
[2018-08-13 16:39] VITALS: BP 136/77
[2018-08-13 20:00] VITALS: BP 132/83
--- NOTE | 2018-08-13 20:00 | NUR ---
ASSESSMENT PER FLOWSHEET. IV PATENT LEFT UPPER ARM PICC LINE SITE OF TPN AT 50CC'S/HR IRON GOING. ZOFRAN GTT AT 4.7CC'S/HR. O2 ON AT 2.5L/M PER NC. RA MAT ON YELLOW SAFETY MEASSURES IN USE. SR UP X2 CALL LIGHT WITHIN REACH VOIDS IN URINAL.REFUSES SCD'S AND ANY PO MEDS.
--- NOTE | 2018-08-13 21:00 | NUR ---
LIPIDS HUNG PER MAY.
[2018-08-14] VITALS (12 sets, daily range): BP systolic 119–141; BP diastolic 76–85
--- NOTE | 2018-08-14 00:18 | NUR ---
RPFA=[id number].NO COVERAGE
[2018-08-14 05:38] LABS: BASOPHILS 0.2 % (0-2); EOSINOPHILS 1.6 % (0-7); HEMATOCRIT 34.1 % (42.0-54.0); HEMOGLOBIN 11.1 g/dL (13.5-17.5); IMMATURE GRANULOCYTES 4.9 % (0-5); MCHC 32.6 g/dL (31.0-37.0); MCV 92.2 fL (80.0-100.0); MEAN PLATELET VOLUME 10.8 fL (7.4-10.4); MONOCYTES 7.4 % (2-11); NEUTROPHILS 75.9 % (40-80); PLATELET COUNT 151 10x3/uL (130-400); RDW 14.9 % (11.5-14.5); WBC 15.3 10x3/uL (4.8-10.8)
[2018-08-14 06:00] LABS: APTT 32.5 SECONDS (22.8-39.4); INR 1.22 (0.85-1.17); PROTIME 14.9 SECONDS (11.6-15.0)
[2018-08-14 06:10] LABS: ALBUMIN 1.9 g/dL (3.4-5.0); ALKALINE PHOSPHATASE 86 U/L (46-116); ALT (SGPT) 35 U/L (10-68); BILIRUBIN - TOTAL 0.18 mg/dL (0.2-1.3); CALC OSMOLALITY 281 mosm/kg (275-300); CALCIUM 8.6 mg/dL (8.5-10.1); CARBON DIOXIDE 26.5 mmol/L (21.0-32.0); CHLORIDE - SERUM 105 mmol/L (98-107); CREATININE - SERUM 0.8 mg/dL (0.6-1.3); GLUCOSE 149 mg/dL (74-106); MAGNESIUM - SERUM 2.2 mg/dL (1.8-2.4); PHOSPHOROUS 3.1 mg/dL (2.5-4.9); POTASSIUM - SERUM 3.3 mmol/L (3.5-5.1); PROTEIN - SERUM 6.4 g/dL (6.4-8.2); SODIUM 140 mmol/L (136-145); UREA NITROGEN 13 mg/dL (7-18); eGFR NON AFRICAN AMERICAN > 90 mL/min (90-120)
--- NOTE | 2018-08-14 07:37 | NUR ---
LYING IN BED. ALERT AND ORIENTED X 3. LUNGS CLEAR BILATERALLY IN ALL VICKERS. HEART SOUNDS S1 AND S2 HEARD IN ALL VICKERS. BOWEL SOUNDS ACTIVE X 4. REFUSES SCDS. STATES WILL ATTEMPT TO TAKE PO MEDICATION THIS MORNING. O2 AT 2.5L PRN. CASH PICC PATENT WITHOUT REDNESS. DENIES PAIN. DENIES NEEDS. RA MAT IN PLACE AND WORKING. BED LOW. CALL BOYD AND PERSONAL ITEMS IN REACH. WILL CONTINUE TO MONITOR.
--- NOTE | 2018-08-14 12:00 | NUR ---
ATTEMPTED TO CONTACT PATIENT'S SON PER REQUEST WITH NO ANSWER. WILL ATTEMPT LATER TODAY.
--- NOTE | 2018-08-14 13:15 | NUR ---
TAKEN FOR PROCEDURE
--- NOTE | 2018-08-14 14:20 | NUR ---
RETURNED FROM PROCEDURE. DRAIN NOTED TO RIGHT ABD. VITALS STABLE. WILL CONTINUE TO MONITOR.
--- NOTE | 2018-08-14 15:37 | NUR ---
CONTACTED PATIENT'S PER REQUEST. TRANSFERRED INTO PATIENT ROOM. DENIES FURTHER NEEDS.
--- NOTE | 2018-08-14 17:42 | NUR ---
RESTING IN BED. DENIES NEEDS. REFUSED BLOOD SUGAR CHECK.
--- NOTE | 2018-08-14 19:00 | NUR ---
REPORT RECEIVED AND CARE OF PT CRISTOBAL. PT UP IN RESTROOM AT THIS TIME. LEFT PICC PATENT PATENT WITH CLINIMIX INFUSING AT 80 ML/HR, AND NS INFUSING AT 75 ML /HR. WILL MONITOR FOR NEEDS.
--- NOTE | 2018-08-14 20:57 | NUR ---
HS MEDICATIONS GIVEN. WILL CONTINUE TO MONITOR FOR NEEDS.
[2018-08-15 04:49] VITALS: BP 138/86
[2018-08-15 06:36] LABS: MAGNESIUM - SERUM 2.1 mg/dL (1.8-2.4); PHOSPHOROUS 2.5 mg/dL (2.5-4.9)
--- NOTE | 2018-08-15 07:09 | NUR ---
Nutrition follow-up: Chart reviewed TPN infusing at goal rate of 80 ml/hr IVF @ 75 ml/hr Labs reviewed IVF decreased to 50 ml/hr due to increase in TPN. BMP ordered RDN following.
--- NOTE | 2018-08-15 07:30 | NUR ---
ALERT AND ORIENTED X 2. REORIENTED TO PLACE. IV FLUIDS DECREASED TO 50 PER ORDER. LUNGS CLEAR BILATERALLY IN ALL VICKERS. HEART SOUNDS S1 AND S2 HEARD IN ALL VICKERS. BOWEL SOUNDS ACTIVE X 4. SKIN INTACT WITHOUT REDNESS. BILIARY DRAIN TO RUQ WITHOUT DRAINAGE. BAG EMPTY. O2 IN PLACE AT 2.5L NC. CASH PICC PATENT WITHOUT REDNESS. REFUSES SCDS. RA MAT IN PLACE. BED LOW. CALL BOYD AND PERSONAL ITEMS IN REACH. WILL CONTINUE TO MONITOR.
[2018-08-15 08:06] LABS: BASOPHILS 0.1 % (0-2); EOSINOPHILS 1.2 % (0-7); HEMATOCRIT 32.3 % (42.0-54.0); HEMOGLOBIN 10.5 g/dL (13.5-17.5); IMMATURE GRANULOCYTES 3.3 % (0-5); MCH 30.3 pg (26.0-34.0); MCHC 32.5 g/dL (31.0-37.0); MCV 93.1 fL (80.0-100.0); MEAN PLATELET VOLUME 11.3 fL (7.4-10.4); MONOCYTES 6.9 % (2-11); NEUTROPHILS 80.5 % (40-80); PLATELET COUNT 140 10x3/uL (130-400); RBC 3.47 10x6/uL (4.20-6.10); RDW 15.4 % (11.5-14.5); WBC 13.7 10x3/uL (4.8-10.8)
[2018-08-15 08:43] LABS: CALC OSMOLALITY 284 mosm/kg (275-300); CALCIUM 8.4 mg/dL (8.5-10.1); CARBON DIOXIDE 25.2 mmol/L (21.0-32.0); CHLORIDE - SERUM 107 mmol/L (98-107); CREATININE - SERUM 0.7 mg/dL (0.6-1.3); GLUCOSE 152 mg/dL (74-106); POTASSIUM - SERUM 3.6 mmol/L (3.5-5.1); SODIUM 141 mmol/L (136-145); UREA NITROGEN 15 mg/dL (7-18); eGFR NON AFRICAN AMERICAN > 90 mL/min (90-120)
--- NOTE | 2018-08-15 09:32 | NUR ---
REFUSED AM MEDICATIONS.
[2018-08-15 09:39] VITALS: BP 125/87
--- NOTE | 2018-08-15 10:05 | NUR ---
RESTING IN BED. DENIES NEEDS.
--- NOTE | 2018-08-15 11:45 | NUR ---
BATH GIVEN PER REQUEST. LINENS CHANGED. ADJUSTED IN BED. DENIES PAIN. DENIES FURTHER NEEDS. WILL CONTINUE TO MONITOR.
--- NOTE | 2018-08-15 13:07 | NUR ---
PATIENT REFUSES PO MEDICATIONS REPEATEDLY. HAD DIFFICULTY WITH PRN TYLENOL FOR PAIN EVEN WITH APPLESAUCE. STATES THAT PILLS "GET STUCK." SPOKE WITH SHEYLA CARNES. NEW ORDER GIVEN FOR SWALLOW EVAL. PATIENT NOTIFIED AND STATES "I THINK THAT IS A GOOD IDEA." DENIES FURTHER NEEDS. WILL CONTINUE TO MONITOR.
[2018-08-15 13:38] VITALS: BP 138/83
--- NOTE | 2018-08-15 14:11 | NUR ---
SWALLOW EVAL BEING DONE. DR ANNA IN ROOM TALKING TO PATIENT. MD MADE AWARE OF PROBLEMS WITH SWALLOWING PILLS. STATES TO CONTINUE SWALLOW EVAL AND GET RESULTS. STATES IF NOTHING CHANGES, MAY POSSIBLY TO EGD. PATIENT VERBALIZED UNDERSTANDING.
--- NOTE | 2018-08-15 14:23 | NUR ---
SPEECH THERAPIST STATES PATIENT PASSED SWALLOW STUDY AND IS OK TO ADVANCE DIET TOLERATED. DR ANNA NOTIFIED. STATES KEEPING FULL LIQUID DIET FOR NOW. STATES CRUSH PILLS IN TO SEE HOW PATIENT TOLERATES. ASKED IF OK TO OPEN PANCREASE CAPS. STATES OK TO OPEN. WILL ATTEMPT WITH PANCREASE DUE AT 1700. WILL CONTINUE TO MONITOR.
--- NOTE | 2018-08-15 15:46 | NUR ---
SPOKE WITH PATIENT ABOUT ATTEMPTING TO TAKE MEDICATION IN THIS EVENING. STATES HAS TRIED BEFORE BUT WILL TRY AGAIN.
--- NOTE | 2018-08-15 16:57 | NUR ---
MEDICATION GIVEN IN WITH MILD DIFFICULTY. PATIENT SWALLOWED AND KEPT DOWN MEDICATION
[2018-08-15 17:57] VITALS: BP 129/88
--- NOTE | 2018-08-15 18:24 | NUR ---
RESTING IN BED. DENIES NEEDS.
--- NOTE | 2018-08-15 19:00 | NUR ---
REPORT RECEIVED AND CARE OF PT ASSUMED. PT LYING IN SUPINE POSITION WITH EYES CLOSED AND EASY RESPIRAITONS. O2 IN USE VIA NC AT 2.5 L. LEFT PICC LINE PATENT WITH CLINIMIX INFUSING AT 80 ML / HR AND NS INFUSING AT 50 ML / HR. WILL MONITOR FOR NEEDS.
[2018-08-15 20:00] VITALS: BP 145/88
--- NOTE | 2018-08-15 22:27 | NUR ---
HS MEDICATIONS GIVEN. WILL CONTINUE TO MONITOR FOR NEEDS.
[2018-08-16] VITALS: BP 140/70
--- NOTE | 2018-08-16 00:10 | NUR ---
ALL BEDDING CHANGED PER PT REQUEST.
[2018-08-16 03:00] VITALS: BP 128/77
[2018-08-16 07:15] LABS: PHOSPHOROUS 2.3 mg/dL (2.5-4.9)
--- NOTE | 2018-08-16 08:48 | NUR ---
PT LYING IN BED STATED HE DID NOT SLEEP WELL DUE TO PEDIATRICS ON THE FLOOR, ADVISED PT THAT THERE ARE NO PEDIATRICS ON THE FLOOR. HE CONTINUED TO ARGUE THAT HE HEARD THEM ALL NIGHT, ERORIENTED PT BACK TO HOSPITAL. NO NEEDS VOICED, PT ASKED FOR LIGHTS TO BE TURNED OUT AND DOOR CLOSED, CONTINUE WITH [PLAN OF CARE
[2018-08-16 08:49] VITALS: BP 137/84
[2018-08-16 09:19] LABS: CALC OSMOLALITY 274 mosm/kg (275-300); CALCIUM 8.6 mg/dL (8.5-10.1); CARBON DIOXIDE 24.4 mmol/L (21.0-32.0); CHLORIDE - SERUM 102 mmol/L (98-107); CREATININE - SERUM 0.7 mg/dL (0.6-1.3); GLUCOSE 174 mg/dL (74-106); POTASSIUM - SERUM 3.8 mmol/L (3.5-5.1); SODIUM 135 mmol/L (136-145); UREA NITROGEN 15 mg/dL (7-18); eGFR NON AFRICAN AMERICAN > 90 mL/min (90-120)
--- NOTE | 2018-08-16 10:08 | NUR ---
Nutrition follow-up: Chart reviewed Dr. Couch has decreased TPN rate of 60 ml/hr Labs reviewed Will notifiy pharmacy of decreased rate RDN following.
[2018-08-16 10:51] LABS: HEMATOCRIT 32.9 % (42.0-54.0); HEMOGLOBIN 10.7 g/dL (13.5-17.5); MCH 30.1 pg (26.0-34.0); MCHC 32.5 g/dL (31.0-37.0); MCV 92.7 fL (80.0-100.0); MEAN PLATELET VOLUME 11.8 fL (7.4-10.4); PLATELET COUNT 130 10x3/uL (130-400); RBC 3.55 10x6/uL (4.20-6.10); RDW 15.1 % (11.5-14.5); WBC 15.5 10x3/uL (4.8-10.8)
[2018-08-16 11:08] LABS: EOSINOPHILS 2 % (0-7); LYMPHOCYTES 8 % (15-50); MONOCYTES 6 % (2-11); NEUTROPHILS 84 % (40-80); PLATELET ESTIMATE DECREASED
[2018-08-16 13:39] VITALS: BP 130/86
[2018-08-16 17:09] VITALS: BP 123/75
--- NOTE | 2018-08-16 17:26 | NUR ---
SPOKE TO PT SON TODAY IN REGARDS TO PT CARE PLAN, PER SON, PT WAS ADVISED TO BE GOING TO INPT REHAB AND WANTED TO KNOW IF PT WOULD BE GOING THIS WEEKEND. ADVISED SON THAT PT MAY BE GOING SATURDAY BUT OF NOW I DID NOT SEE WHERE PT WAS TO GO THIS WEEKEND. ALL QUESTIONS ANSWERED. CONTINUE WITH PLAN OF CARE
--- NOTE | 2018-08-16 18:47 | NUR ---
I have reviewed this patient and I concur with the Shift Assessment completed by the Licensed Practical Nurse today this shift.
--- NOTE | 2018-08-16 19:00 | NUR ---
REPORT RECEIVED AND CARE OF PT ASSUMED. PT LYING IN SUPINE POSITION WITH EYES CLOSED. O2 IN USE VIA NC AT 2L. LEFT PICC LINE PATENT WITH CLINIMIX INFUSING AT 60 ML / HR AND NS INFUSING AT 50 ML / HR. RIGHT BILI DRAIN PATENT. WILL MONITOR FOR NEEDS.
[2018-08-16 20:18] VITALS: BP 131/82
--- NOTE | 2018-08-16 21:36 | NUR ---
HS MEDICATIONS GIVEN. WILL CONTINUE TO MONITOR FOR NEEDS.
[2018-08-17] VITALS (7 sets, daily range): BP systolic 119–144; BP diastolic 63–87
--- NOTE | 2018-08-17 02:47 | NUR ---
PT C/O RIGHT FLANK PAIN...GAVE MORPHINE AND TYLENOL PER PRN ORDER...STILL SOME PAIN. WILL MONITOR AND GIVE PRN PAIN MEDS AVAILABLE PER ORDERS.
[2018-08-17 06:15] LABS: BASOPHILS 0.1 % (0-2); EOSINOPHILS 0.6 % (0-7); HEMOGLOBIN 10.6 g/dL (13.5-17.5); IMMATURE GRANULOCYTES 1.6 % (0-5); LYMPHOCYTES 5.7 % (15-50); MCHC 33.1 g/dL (31.0-37.0); MEAN PLATELET VOLUME 11.6 fL (7.4-10.4); MONOCYTES 5.9 % (2-11); NEUTROPHILS 86.1 % (40-80); PLATELET COUNT 123 10x3/uL (130-400); RBC 3.53 10x6/uL (4.20-6.10); RDW 15.1 % (11.5-14.5)
[2018-08-17 06:29] LABS: MCV 90.7 fL (80.0-100.0)
[2018-08-17 06:38] LABS: CALC OSMOLALITY 270 mosm/kg (275-300); CALCIUM 8.4 mg/dL (8.5-10.1); CARBON DIOXIDE 25.3 mmol/L (21.0-32.0); CHLORIDE - SERUM 101 mmol/L (98-107); CREATININE - SERUM 0.7 mg/dL (0.6-1.3); GLUCOSE 157 mg/dL (74-106); MAGNESIUM - SERUM 1.9 mg/dL (1.8-2.4); PHOSPHOROUS 2.7 mg/dL (2.5-4.9); POTASSIUM - SERUM 3.7 mmol/L (3.5-5.1); SODIUM 134 mmol/L (136-145); UREA NITROGEN 13 mg/dL (7-18); eGFR NON AFRICAN AMERICAN > 90 mL/min (90-120)
--- NOTE | 2018-08-17 07:28 | NUR ---
Nutrition follow-up: Chart reviewed TPN @ 60 ml/hr; Intralipids Q 72 hours Diet: As tolerated but mostly full liquids with ~60% intake yesterday Labs reviewed; Na slightly below normal Will continue monitoring pts progress. RDN following.
--- NOTE | 2018-08-17 08:56 | NUR ---
PT ALERT X 4. BREATH SOUNDS CLEAR BILAT. TELEMETRY IN PLACE. BILI DRAIN TO RIGHT SIDE, OUTPUT BLOODY. PT REPORTING PAIN OF 9/10, MEDICATED PER ORDERS, WILL MONITOR. PICC LINE TO LEFT UPPER ARM, PATENT, DRESSING CDI. BRUISING TO RIGHT UPPER ARM. SITTING UP IN CHAIR. BED LOW, CALL LIGHT IN REACH. NO OTHER NEEDS AT THIS TIME.
[2018-08-17 11:10] LABS: AMYLASE - SERUM 44 U/L (25-115); LIPASE 201 U/L (73-393)
[2018-08-17 15:32] LABS: APPEARANCE CLEAR (CLEAR); BILIRUBIN NEGATIVE (NEGATIVE); COLOR YELLOW (YELLOW); GLUCOSE NEGATIVE (NEGATIVE); KETONE NEGATIVE (NEGATIVE); NITRITE NEGATIVE (NEGATIVE); PROTEIN TRACE mg/dL (NEGATIVE); UROBILINOGEN NORMAL (NORMAL)
[2018-08-17 15:34] LABS: WHITE CELLS - URINE OCC /hpf (0-5)
[2018-08-17 15:40] LABS: BACTERIA FEW /hpf (NONE SEEN); EPITHELIAL CELLS 0-5 /hpf (0-5)
--- NOTE | 2018-08-17 19:00 | NUR ---
REPORT RECEIVED AND CARE OF PT ASSUMED. PT LYING IN SUPINE POSITION WITH EYES CLOSED. LEFT PICC LINE PATENT WITH CLININMIX INFUISNG AT 60 ML / HR AND NS INFUSING AT 50 ML / HR. O2 IN USE VIA NC AT 2L. WILL MONITOR FOR NEEDS.
--- NOTE | 2018-08-17 21:20 | NUR ---
HS MEDICATIONS GIVEN. PT DENIES NEED FOR PAIN MED AT THIS TIME. WILL CONTINUE TO MONITOR FOR NEEDS.
[2018-08-18 03:56] LABS: BASOPHILS 0.1 % (0-2); EOSINOPHILS 0.6 % (0-7); HEMATOCRIT 31.3 % (42.0-54.0); HEMOGLOBIN 10.2 g/dL (13.5-17.5); IMMATURE GRANULOCYTES 0.9 % (0-5); LYMPHOCYTES 5.3 % (15-50); MCH 29.7 pg (26.0-34.0); MCHC 32.6 g/dL (31.0-37.0); MEAN PLATELET VOLUME 11.5 fL (7.4-10.4); MONOCYTES 7.1 % (2-11); PLATELET COUNT 119 10x3/uL (130-400); RBC 3.44 10x6/uL (4.20-6.10); RDW 15.1 % (11.5-14.5)
[2018-08-18 04:07] LABS: CALC OSMOLALITY 275 mosm/kg (275-300); CALCIUM 8.7 mg/dL (8.5-10.1); CHLORIDE - SERUM 103 mmol/L (98-107); CREATININE - SERUM 0.6 mg/dL (0.6-1.3); GLUCOSE 154 mg/dL (74-106); SODIUM 136 mmol/L (136-145); UREA NITROGEN 15 mg/dL (7-18); eGFR NON AFRICAN AMERICAN > 90 mL/min (90-120)
[2018-08-18 04:30] VITALS: BP 115/70
--- NOTE | 2018-08-18 06:37 | NUR ---
CHANGED ALL IV TUBING PER CHANGE SCHEDULE.
[2018-08-18 07:56] VITALS: BP 122/22
[2018-08-18 07:57] LABS: MAGNESIUM - SERUM 2.2 mg/dL (1.8-2.4); PHOSPHOROUS 2.8 mg/dL (2.5-4.9)
[2018-08-18 12:37] VITALS: BP 138/42
--- NOTE | 2018-08-18 14:34 | NUR ---
Nutrition follow-up: Chart reviewed Labs WNL TPN @ 60 ml/hr with 20% 250 ml intralipids Q 72 hours RDN following.
[2018-08-18 17:23] VITALS: BP 129/47
[2018-08-18 21:24] VITALS: BP 131/76
[2018-08-19] VITALS (7 sets, daily range): BP systolic 113–137; BP diastolic 67–85
--- NOTE | 2018-08-19 | NUR ---
PT STATED HE'S TERRIFIED HE WILL URINATE DURING HIS PROCEDURE IN THE MORNING AND REQUESTS A PEREZ. INFORMED PT HE WILL EITHER BE INSTRUCTED TO VOID PRIOR TO OR WILL HAVE A PEREZ INSERTED PRIOR TO IF NEEDED. PT VERBALIZED UNDERSTANDING, THEN SAID HE'S READY FOR THE PROCEDURE RIGHT NOW. INFORMED PT IT WILL BE IN THE MORNING OR AFTERNOON.
--- NOTE | 2018-08-19 03:15 | NUR ---
I have reviewed this patient and I concur with the Shift Assessment completed by the Licensed Practical Nurse today this shift.
[2018-08-19 06:36] LABS: BASOPHILS 0.1 % (0-2); EOSINOPHILS 1.1 % (0-7); HEMATOCRIT 29.7 % (42.0-54.0); HEMOGLOBIN 9.8 g/dL (13.5-17.5); IMMATURE GRANULOCYTES 0.5 % (0-5); LYMPHOCYTES 6.8 % (15-50); MCH 29.6 pg (26.0-34.0); MCV 89.7 fL (80.0-100.0); MEAN PLATELET VOLUME 11.7 fL (7.4-10.4); MONOCYTES 7.4 % (2-11); NEUTROPHILS 84.1 % (40-80); PLATELET COUNT 130 10x3/uL (130-400); RBC 3.31 10x6/uL (4.20-6.10); RDW 15.2 % (11.5-14.5); WBC 14.8 10x3/uL (4.8-10.8)
[2018-08-19 07:00] LABS: INR 1.24 (0.85-1.17); PROTIME 15.1 SECONDS (11.6-15.0)
[2018-08-19 07:01] LABS: APTT 35.9 SECONDS (22.8-39.4)
[2018-08-19 07:05] LABS: ALBUMIN 1.8 g/dL (3.4-5.0); ALKALINE PHOSPHATASE 103 U/L (46-116); ALT (SGPT) 29 U/L (10-68); BILIRUBIN - TOTAL 0.35 mg/dL (0.2-1.3); CALC OSMOLALITY 272 mosm/kg (275-300); CALCIUM 8.2 mg/dL (8.5-10.1); CARBON DIOXIDE 23.5 mmol/L (21.0-32.0); CHLORIDE - SERUM 102 mmol/L (98-107); CREATININE - SERUM 0.5 mg/dL (0.6-1.3); GLUCOSE 142 mg/dL (74-106); MAGNESIUM - SERUM 2.1 mg/dL (1.8-2.4); POTASSIUM - SERUM 4.1 mmol/L (3.5-5.1); PROTEIN - SERUM 6.2 g/dL (6.4-8.2); SODIUM 135 mmol/L (136-145); UREA NITROGEN 16 mg/dL (7-18); eGFR NON AFRICAN AMERICAN > 90 mL/min (90-120)
--- NOTE | 2018-08-19 07:54 | NUR ---
PT IS WITHOUT DISTRESS.NPO FOR PROCEDURE
--- NOTE | 2018-08-19 11:34 | NUR ---
PT C/O PAIN IIN SHOULDER. ADMINISTERED PRN PAIN MEDICATION. NO OTHER NEEDS VOICED, CONTINUE WITH PLAN OF CARE
--- NOTE | 2018-08-19 13:04 | NUR ---
PT REQUESTING MORE PAIN MEDS STATING PAIN IS UNBEARABLE. PT HAD MORHINE AT 11 ONLY OTHER MEDS TO GIVE IS TYLENOL. PT STATED WILL TRY ANYTHING. CONTINUE WITH PLAN OF CARE
[2018-08-19 13:59] LABS: MACROPHAGES BF 3 %; NEUT - BF 95 %
--- NOTE | 2018-08-19 21:10 | NUR ---
AWAKE,ALERT.NO DISTRESS NOTED. NO COMPLAITNS VOICED.RESP UNLAOBRED. IV INFUSING TO CASH PICC WITHOUT REDNESS OR EDEMA NOTED. BILIARY DRAINS ITNACT TO BILATERAL ABD WITH GREEN DRAINAGE NOTED. FLUSHED PER ORDERS.CL IN REACH
[2018-08-20] VITALS: BP 144/85
[2018-08-20 04:30] VITALS: BP 115/69
--- NOTE | 2018-08-20 04:55 | NUR ---
I have reviewed this patient and I concur with the Shift Assessment completed by the Licensed Practical Nurse today this shift.
[2018-08-20 07:58] LABS: BASOPHILS 0.1 % (0-2); EOSINOPHILS 0.7 % (0-7); HEMATOCRIT 31.5 % (42.0-54.0); HEMOGLOBIN 10.2 g/dL (13.5-17.5); IMMATURE GRANULOCYTES 0.8 % (0-5); LYMPHOCYTES 5.3 % (15-50); MCH 29.5 pg (26.0-34.0); MCHC 32.4 g/dL (31.0-37.0); MEAN PLATELET VOLUME 11.8 fL (7.4-10.4); MONOCYTES 6.9 % (2-11); NEUTROPHILS 86.2 % (40-80); PLATELET COUNT 143 10x3/uL (130-400); RBC 3.46 10x6/uL (4.20-6.10); RDW 15.6 % (11.5-14.5); WBC 18.1 10x3/uL (4.8-10.8)
[2018-08-20 08:20] LABS: CALC OSMOLALITY 274 mosm/kg (275-300); CALCIUM 8.7 mg/dL (8.5-10.1); CARBON DIOXIDE 24.4 mmol/L (21.0-32.0); CHLORIDE - SERUM 102 mmol/L (98-107); GLUCOSE 166 mg/dL (74-106); MAGNESIUM - SERUM 2.1 mg/dL (1.8-2.4); PHOSPHOROUS 2.9 mg/dL (2.5-4.9); POTASSIUM - SERUM 3.8 mmol/L (3.5-5.1); SODIUM 135 mmol/L (136-145); UREA NITROGEN 15 mg/dL (7-18)
[2018-08-20 08:21] LABS: CREATININE - SERUM 0.7 mg/dL (0.6-1.3); eGFR NON AFRICAN AMERICAN > 90 mL/min (90-120)
[2018-08-20 09:22] VITALS: BP 132/72
[2018-08-20 12:49] VITALS: BP 114/73
[2018-08-20 14:56] VITALS: BP 121/68
--- NOTE | 2018-08-20 20:00 | NUR ---
ASSESSMENT PER FLOWSHEET. IV PATENT LEFT UPPER ARM PICC LINE OF TPN AT 60CC'S/HR NS AT 50CC'S/HR. MEDS GIVEN PER MAY. VOIDS IN URINAL TELM. SHOWS ST WITH HR 109. RA MAT ON BED.REFUSES SCD'S.PT IN CONTACT ISOLATION.
[2018-08-20 20:58] VITALS: BP 108/62
--- NOTE | 2018-08-20 21:45 | NUR ---
MEDS GIVEN PER MAR.
[2018-08-21] VITALS: BP 107/69
--- NOTE | 2018-08-21 00:23 | NUR ---
VOIDS IN URINAL. REPOSITIONED IN BED. SR UP X2 CALL LIGHT WITHIN REACH.
[2018-08-21 04:00] VITALS: BP 124/76
[2018-08-21 07:06] LABS: BASOPHILS 0.2 % (0-2); EOSINOPHILS 1.2 % (0-7); HEMATOCRIT 28.3 % (42.0-54.0); HEMOGLOBIN 9.3 g/dL (13.5-17.5); IMMATURE GRANULOCYTES 0.4 % (0-5); LYMPHOCYTES 7.9 % (15-50); MCH 29.5 pg (26.0-34.0); MCHC 32.9 g/dL (31.0-37.0); MCV 89.8 fL (80.0-100.0); MEAN PLATELET VOLUME 11.5 fL (7.4-10.4); MONOCYTES 9.4 % (2-11); NEUTROPHILS 80.9 % (40-80); PLATELET COUNT 137 10x3/uL (130-400); RBC 3.15 10x6/uL (4.20-6.10); RDW 15.4 % (11.5-14.5)
[2018-08-21 07:09] LABS: WBC 11.3 10x3/uL (4.8-10.8)
[2018-08-21 07:25] LABS: CALC OSMOLALITY 273 mosm/kg (275-300); CALCIUM 8.6 mg/dL (8.5-10.1); CARBON DIOXIDE 25.7 mmol/L (21.0-32.0); CHLORIDE - SERUM 103 mmol/L (98-107); CREATININE - SERUM 0.7 mg/dL (0.6-1.3); GLUCOSE 149 mg/dL (74-106); POTASSIUM - SERUM 4.2 mmol/L (3.5-5.1); SODIUM 135 mmol/L (136-145); UREA NITROGEN 16 mg/dL (7-18); VANCOMYCIN - TROUGH 9.3 ug/mL (10.0-20.0); eGFR NON AFRICAN AMERICAN > 90 mL/min (90-120)
--- NOTE | 2018-08-21 08:10 | NUR ---
PT RESTING QUIETLY IN BED. SMILING GREETING STAFF STAFF ENTERED ROOM. NO ACUTE DISTRESS NOTED. DENIES PAIN AT THIS TIME. PICC LINE TO LEFT UPPER ARM INTACT WITH NS @ 50ML/HR, CLINIMIX @ 60 ML/HR BOTH INFUSING VIA PUMP. DRAINS INTACT TO LEFT AND RIGHT ABDOMEN, NO DRAINAGE TO PT RIGHT DRAIN, SCANT AMOUT OF PALE GREEN DRAINAGE TO PT LEFT DRAIN. DENIES FURTHER NEEDS AT THIS TIME. CL WITHIN REACH. ENCOURAGED TO CALL WITH NEEDS. CONTINUE POC
[2018-08-21 09:00] VITALS: BP 140/85
--- NOTE | 2018-08-21 10:55 | NUR ---
NUTRITION F/U LABS REVIEWED, PT VISIT. TOLERATING SMALL AMT REG BREAKFAST. REMAINS ON TPN AND LIPIDS. ADDED BMP TO AM LAB DRAW. RD FOLLOWING
[2018-08-21 12:36] VITALS: BP 111/60
--- NOTE | 2018-08-21 16:30 | NUR ---
CONTACTED PHARMACY REGARDING PT MEDICATION MERREM BEING UNAVAILABLE IN PYXIS. WAS INFORMED THAT MANY MEDICATIONS MAY BE UNAVAILABLE AT THIS TIME. INFORMED THAT THIS WOULD BE RESOLVED.
[2018-08-21 16:43] VITALS: BP 135/70
--- NOTE | 2018-08-21 22:34 | NUR ---
LYING QUIELTY.NO DISTRESS NOTED.RESP UNALBORED. IV INFUSING TO CASH PICC WITHOUT REDNESS OR EDEMA NOTED. BILIARY DRAIN INTACT TO LEFT FLANK AND DRAINING BROWN TINGED DRAINAGE.NO COMPLAITNS VOICED. CL IN REACH
[2018-08-22 00:07] VITALS: BP 146/86
--- NOTE | 2018-08-22 01:56 | NUR ---
I have reviewed this patient and I concur with the Shift Assessment completed by the Licensed Practical Nurse today this shift.
[2018-08-22 05:07] VITALS: BP 137/82
[2018-08-22 06:35] LABS: CALC OSMOLALITY 273 mosm/kg (275-300); CALCIUM 8.5 mg/dL (8.5-10.1); CARBON DIOXIDE 24.6 mmol/L (21.0-32.0); CHLORIDE - SERUM 104 mmol/L (98-107); CREATININE - SERUM 0.7 mg/dL (0.6-1.3); GLUCOSE 155 mg/dL (74-106); PHOSPHOROUS 3.1 mg/dL (2.5-4.9); SODIUM 135 mmol/L (136-145); UREA NITROGEN 14 mg/dL (7-18); eGFR NON AFRICAN AMERICAN > 90 mL/min (90-120)
--- NOTE | 2018-08-22 07:39 | NUR ---
PT RESTING IN BED. NO SIGNS OF DISTRESS. IV TO LEFT UPPER ARM PICC PATENT NO REDNESS OR TENDERNESS. HAS DRAIN TO LEFT SIDE OF ABDOMEN. FALL PRECAUTIONS IN PLACE. IN CONTACT ISO. DENIES ANY FUTHER NEED AT THIS TIME. CALL LIGHT IN REACH. BED LOW POSITION. NO FAMILY AT BEDSIDE AT THIS TIME.
[2018-08-22 09:00] VITALS: BP 141/74
--- NOTE | 2018-08-22 09:27 | NUR ---
NUTRITION F/U SPOKE WITH MD, RECEIVED VERBAL ORDER TO DC TPN AND LIPIDS. START PROCALAMINE. ADD ENSURE TO MEALS. NURSING MESSAGE TO TAPER TPN AND DC WHEN PROCALAMINE STARTS. RD FOLLOWING
[2018-08-22 13:23] VITALS: BP 127/70
[2018-08-22 17:22] VITALS: BP 134/71
--- NOTE | 2018-08-22 17:37 | NUR ---
RESTING IN BED. DENIES PAIN. DENIES NEEDS.
--- NOTE | 2018-08-22 18:26 | NUR ---
RESTING IN BED. DENIES PAIN. DENIES NEEDS. CALL BOYD AND PERSONAL ITEMS IN REACH. FALL PRECAUTIONS IN PLACE. BED LOW.
--- NOTE | 2018-08-22 19:45 | NUR ---
PT LYING IN BED RESTING, NO SIGNS OF DISTRESS. ALERT AND ORIENTED. BOWEL SOUNDS ACTIVE. SOME TENDERNESS LUQ. LEFT FLANK BILI DRAIN WITH DARK BROWN DRAINAGE. LEFT UPPER ARM PICC WITH NS @ 10 AND PROCAL @ 50. CONTACT ISOLATION IN PLACE. RA ON. REFUSES SCDS. CL IN REACH, WILL CONT TO MONITOR
[2018-08-22 20:06] VITALS: BP 123/78
--- NOTE | 2018-08-22 21:45 | NUR ---
FLUSHED BILI DRAIN ORDERED. PT INCONTINENT OF URINE, CHANGED LINENS. CL IN REACH, WILL CONT TO MONITOR
[2018-08-23 00:57] VITALS: BP 138/81
[2018-08-23 04:35] VITALS: BP 130/79
[2018-08-23 07:18] LABS: BASOPHILS 0.3 % (0-2); EOSINOPHILS 1.2 % (0-7); HEMATOCRIT 29.7 % (42.0-54.0); HEMOGLOBIN 9.8 g/dL (13.5-17.5); IMMATURE GRANULOCYTES 0.6 % (0-5); LYMPHOCYTES 8.8 % (15-50); MCH 29.2 pg (26.0-34.0); MCV 88.4 fL (80.0-100.0); MEAN PLATELET VOLUME 10.9 fL (7.4-10.4); MONOCYTES 8.6 % (2-11); NEUTROPHILS 80.5 % (40-80); PLATELET COUNT 146 10x3/uL (130-400); RBC 3.36 10x6/uL (4.20-6.10); RDW 15.3 % (11.5-14.5); WBC 8.9 10x3/uL (4.8-10.8)
[2018-08-23 07:37] LABS: CALC OSMOLALITY 271 mosm/kg (275-300); CALCIUM 9.1 mg/dL (8.5-10.1); CARBON DIOXIDE 23.1 mmol/L (21.0-32.0); CHLORIDE - SERUM 101 mmol/L (98-107); CREATININE - SERUM 0.6 mg/dL (0.6-1.3); GLUCOSE 115 mg/dL (74-106); PHOSPHOROUS 3.7 mg/dL (2.5-4.9); POTASSIUM - SERUM 3.9 mmol/L (3.5-5.1); SODIUM 135 mmol/L (136-145); UREA NITROGEN 14 mg/dL (7-18); eGFR NON AFRICAN AMERICAN > 90 mL/min (90-120)
[2018-08-23 08:35] VITALS: BP 133/77
[2018-08-23 12:48] VITALS: BP 123/73
--- NOTE | 2018-08-23 14:53 | NUR ---
I have reviewed this patient and I concur with the Shift Assessment completed by the Licensed Practical Nurse today this shift.
--- NOTE | 2018-08-23 16:00 | NUR ---
PT HAD MASSIVE BM AT THIS TIME INCONT. EPISODE CLEANED UP AT THIS TIME VÍCTOR ANG
[2018-08-23 16:47] VITALS: BP 115/71
--- NOTE | 2018-08-23 19:30 | NUR ---
PT LYING IN BED WITHOUT DISTRESS. ALERT AND ORIENTED. DENIES NEEDS. CL IN REACH, WILL CONT TO MONITOR
[2018-08-23 20:00] VITALS: BP 101/66
--- NOTE | 2018-08-23 21:40 | NUR ---
FLUSHED BILI DRAIN ORDERED, SCANT BROWN DRAINAGE IN BAG. PT DENIES PAIN. REFUSES SCDS. CL IN REACH, WILL CONT TO MONITOR
[2018-08-24] VITALS: BP 115/74
--- NOTE | 2018-08-24 01:00 | NUR ---
CHANGED ALL IV TUBING AT THIS TIME
[2018-08-24 04:00] VITALS: BP 126/71
[2018-08-24 07:16] LABS: BASOPHILS 0.6 % (0-2); EOSINOPHILS 1.4 % (0-7); HEMATOCRIT 27.7 % (42.0-54.0); HEMOGLOBIN 9.3 g/dL (13.5-17.5); IMMATURE GRANULOCYTES 0.4 % (0-5); LYMPHOCYTES 9.2 % (15-50); MCH 29.6 pg (26.0-34.0); MCHC 33.6 g/dL (31.0-37.0); MCV 88.2 fL (80.0-100.0); MEAN PLATELET VOLUME 11.1 fL (7.4-10.4); NEUTROPHILS 78.4 % (40-80); PLATELET COUNT 146 10x3/uL (130-400); RBC 3.14 10x6/uL (4.20-6.10); RDW 15.4 % (11.5-14.5); WBC 7.2 10x3/uL (4.8-10.8)
[2018-08-24 07:31] LABS: CALC OSMOLALITY 274 mosm/kg (275-300); CARBON DIOXIDE 25.3 mmol/L (21.0-32.0); CHLORIDE - SERUM 103 mmol/L (98-107); GLUCOSE 112 mg/dL (74-106); POTASSIUM - SERUM 3.9 mmol/L (3.5-5.1); SODIUM 136 mmol/L (136-145); UREA NITROGEN 17 mg/dL (7-18)
[2018-08-24 07:38] LABS: CREATININE - SERUM 0.8 mg/dL (0.6-1.3); eGFR NON AFRICAN AMERICAN > 90 mL/min (90-120)
[2018-08-24 09:05] VITALS: BP 118/80
[2018-08-24 13:10] VITALS: BP 129/78
[2018-08-24 16:34] VITALS: BP 128/79
--- NOTE | 2018-08-24 18:25 | NUR ---
PT AAOX4 RESP EVEN AND NONALBORED, NO SIGNS OF DISTRESS NOTED CL IN REACH
--- NOTE | 2018-08-24 20:15 | NUR ---
PT SITTING UP IN BED WITHOUT DISTRESS. ALERT AND ORIENTED. DENIES NEEDS. STATES PAIN 10/08. GAVE NORCO ORDERED. LEFT UPPER ARM PICC INFUSING PROCAL @ 50. DARRON DRIP @ 4.7. CONTACT ISOLATION IN PLACE. LEFT ABD BILI DRAIN WITH LIGHT BROWN DRAINAGE. RA ON. CL IN REACH, WILL CTM
[2018-08-24 20:32] VITALS: BP 119/73
[2018-08-25 01:25] VITALS: BP 111/66
[2018-08-25 04:00] VITALS: BP 124/76
[2018-08-25 07:49] LABS: BASOPHILS 0.3 % (0-2); EOSINOPHILS 1.7 % (0-7); HEMATOCRIT 28.1 % (42.0-54.0); HEMOGLOBIN 9.3 g/dL (13.5-17.5); IMMATURE GRANULOCYTES 0.7 % (0-5); LYMPHOCYTES 8.7 % (15-50); MCH 29.5 pg (26.0-34.0); MCHC 33.1 g/dL (31.0-37.0); MCV 89.2 fL (80.0-100.0); MEAN PLATELET VOLUME 10.5 fL (7.4-10.4); MONOCYTES 7.8 % (2-11); NEUTROPHILS 80.8 % (40-80); PLATELET COUNT 147 10x3/uL (130-400); RBC 3.15 10x6/uL (4.20-6.10); RDW 15.5 % (11.5-14.5); WBC 7.5 10x3/uL (4.8-10.8)
[2018-08-25 08:05] LABS: CALC OSMOLALITY 276 mosm/kg (275-300); CALCIUM 8.9 mg/dL (8.5-10.1); CARBON DIOXIDE 25.5 mmol/L (21.0-32.0); CHLORIDE - SERUM 104 mmol/L (98-107); CREATININE - SERUM 0.9 mg/dL (0.6-1.3); GLUCOSE 127 mg/dL (74-106); POTASSIUM - SERUM 3.9 mmol/L (3.5-5.1); SODIUM 137 mmol/L (136-145); UREA NITROGEN 16 mg/dL (7-18); VANCOMYCIN - TROUGH 17.4 ug/mL (10.0-20.0); eGFR NON AFRICAN AMERICAN 86 mL/min (90-120)
[2018-08-25 09:02] VITALS: BP 103/66
[2018-08-25 17:52] VITALS: BP 122/72
--- NOTE | 2018-08-25 18:45 | NUR ---
PATIENT IN BED WITH NO COMPLAINTS OR SIGNS OF DISTRESS. IV INTACT. DRAIN EMPTIED AND CDI. CALL LIGHT WITHIN REACH.
--- NOTE | 2018-08-25 20:00 | NUR ---
ASSESSMENT PER FLOWSHEEET. IV PATENT LEFT UPPER ARM PICC LINE WITH NS AT 10CC'S/HR PROCAL AT 50CC'S/HR AND ZOFRAN GTT AT 4.7CC'S/HR. VOIDS SMALL AMOUTS YELLOW URINE IN URINAL. PT IN CONTACT ISOLATION. BLI DRAIN PATENT TO LEFT ABDOMINAL AREA WITH [place] COLORED DRAINAGE NOTED. RA MAT ON REFUSES SCD'S.
[2018-08-25 20:41] VITALS: BP 116/73
--- NOTE | 2018-08-25 22:00 | NUR ---
MEDS GIVEN PER MAR.
--- NOTE | 2018-08-26 | NUR ---
EYES CLOSED RESPIRATIONS WITH EASE AND UNLABORED.
[2018-08-26 00:38] VITALS: BP 128/78
--- NOTE | 2018-08-26 01:29 | NUR ---
RESTING QUIETLY BODY IN GOOD ALIGNMENT.
--- NOTE | 2018-08-26 03:05 | NUR ---
INC URINE COMPLETE LINENS CHANGE DONE.
[2018-08-26 05:22] VITALS: BP 133/79
[2018-08-26 06:46] LABS: CALC OSMOLALITY 277 mosm/kg (275-300); CALCIUM 8.4 mg/dL (8.5-10.1); CARBON DIOXIDE 26.7 mmol/L (21.0-32.0); CHLORIDE - SERUM 105 mmol/L (98-107); CREATININE - SERUM 0.8 mg/dL (0.6-1.3); GLUCOSE 107 mg/dL (74-106); POTASSIUM - SERUM 4.1 mmol/L (3.5-5.1); SODIUM 138 mmol/L (136-145); UREA NITROGEN 17 mg/dL (7-18); eGFR NON AFRICAN AMERICAN > 90 mL/min (90-120)
[2018-08-26 06:47] LABS: BASOPHILS 0.4 % (0-2); EOSINOPHILS 1.4 % (0-7); HEMATOCRIT 27.5 % (42.0-54.0); HEMOGLOBIN 8.9 g/dL (13.5-17.5); IMMATURE GRANULOCYTES 0.4 % (0-5); LYMPHOCYTES 7.8 % (15-50); MCHC 32.4 g/dL (31.0-37.0); MCV 89.6 fL (80.0-100.0); MEAN PLATELET VOLUME 10.8 fL (7.4-10.4); MONOCYTES 8.6 % (2-11); NEUTROPHILS 81.4 % (40-80); PLATELET COUNT 140 10x3/uL (130-400); RBC 3.07 10x6/uL (4.20-6.10); RDW 15.6 % (11.5-14.5); WBC 8.5 10x3/uL (4.8-10.8)
--- NOTE | 2018-08-26 08:45 | NUR ---
PATIENT IN BED WITH IV INTACT. BILI DRAIN INTACT. NO COMPLAINTS OR SIGNS OF DISTRESS. CALL LIGHT WITHIN REACH.
[2018-08-26 09:28] VITALS: BP 113/67
--- NOTE | 2018-08-26 13:23 | NUR ---
NUTRITION F/U PT TOLERATING REG DIET, DRINKING ENSURE WELL. PROCALAMINE AT 50 CC/HR. WILL CONTINUE TO PROVIDE DIET, ENSURE. ENCOURAGE PO INTAKE. RD FOLLOWING
[2018-08-26 13:43] VITALS: BP 159/71
[2018-08-26 17:29] VITALS: BP 115/66
--- NOTE | 2018-08-26 18:45 | NUR ---
PATIENT IN BED WITH NO COMPLAINTS OF PAIN OR SIGNS OF DISTRESS. DRAIN EMPTIED WITH ONLY SMALL AMOUNT IN BAG. HAD MULIPLE BM'S TODAY AND FEW INCONTINENT EPISODES. EATING SMALL AMOUNTS AND DRINKING ALL OF ENSURES DURING MEALS. CALL LIGHT WITHIN REACH.
--- NOTE | 2018-08-26 20:00 | NUR ---
ASSESSMENT PER FLOWSHEET. IV PATENT LEFT UPPER ARM PICC LINE WITH NS AT 10CC'S/HR PROCAL AT 50CC'S/HR AND ZOFRAN GTT AT 4.7CC'S/HR. LEFT UPPER ABD. WITH BILI DRAIN IN PLACE [place]LL[place] COLORED DRAINAGE NOTED. REFUSES SCD'S RA BED ALARM MAT IN PLACE. SR UP X2 CALL LIGHT WITHIN REACH.
[2018-08-26 21:00] VITALS: BP 135/80
--- NOTE | 2018-08-26 22:00 | NUR ---
MEDS GIVEN PER MAR.
[2018-08-27 00:43] VITALS: BP 138/81
--- NOTE | 2018-08-27 01:38 | NUR ---
EYESW CLOSED RESPIRATIONS WITH EASE AND UNLABORED.
[2018-08-27 05:33] VITALS: BP 144/81
[2018-08-27 05:42] LABS: BASOPHILS 0.4 % (0-2); EOSINOPHILS 1.5 % (0-7); HEMATOCRIT 28.4 % (42.0-54.0); HEMOGLOBIN 9.3 g/dL (13.5-17.5); IMMATURE GRANULOCYTES 0.5 % (0-5); LYMPHOCYTES 8.6 % (15-50); MCH 29.1 pg (26.0-34.0); MCHC 32.7 g/dL (31.0-37.0); MCV 88.8 fL (80.0-100.0); MEAN PLATELET VOLUME 10.8 fL (7.4-10.4); MONOCYTES 8.4 % (2-11); NEUTROPHILS 80.6 % (40-80); PLATELET COUNT 146 10x3/uL (130-400); RDW 15.6 % (11.5-14.5); WBC 8.5 10x3/uL (4.8-10.8)
[2018-08-27 06:15] LABS: CALC OSMOLALITY 277 mosm/kg (275-300); CALCIUM 8.9 mg/dL (8.5-10.1); CARBON DIOXIDE 25.4 mmol/L (21.0-32.0); CHLORIDE - SERUM 105 mmol/L (98-107); CREATININE - SERUM 0.7 mg/dL (0.6-1.3); GLUCOSE 109 mg/dL (74-106); POTASSIUM - SERUM 3.9 mmol/L (3.5-5.1); SODIUM 138 mmol/L (136-145); UREA NITROGEN 15 mg/dL (7-18); eGFR NON AFRICAN AMERICAN > 90 mL/min (90-120)
[2018-08-27 10:35] VITALS: BP 126/78
[2018-08-27 13:45] VITALS: BP 132/75
--- NOTE | 2018-08-27 18:50 | NUR ---
REMAINS WITHOUTCHANGE.CONT PLAN OF CARE
[2018-08-27 21:23] VITALS: BP 147/81
[2018-08-28 01:57] VITALS: BP 154/82
[2018-08-28 05:41] VITALS: BP 135/84
--- NOTE | 2018-08-28 06:48 | NUR ---
MEDS GIVEN PER MAR.
--- NOTE | 2018-08-28 07:41 | NUR ---
PT IS WITHOUT DISTRESS.FALL PREVENTION IN PLACE.ISOLATION MAINTAINED
[2018-08-28 07:52] LABS: BASOPHILS 0.3 % (0-2); EOSINOPHILS 2.2 % (0-7); HEMATOCRIT 28.9 % (42.0-54.0); HEMOGLOBIN 9.5 g/dL (13.5-17.5); IMMATURE GRANULOCYTES 0.6 % (0-5); LYMPHOCYTES 9.4 % (15-50); MCH 29.1 pg (26.0-34.0); MCHC 32.9 g/dL (31.0-37.0); MCV 88.7 fL (80.0-100.0); MONOCYTES 9.2 % (2-11); NEUTROPHILS 78.3 % (40-80); PLATELET COUNT 149 10x3/uL (130-400); RBC 3.26 10x6/uL (4.20-6.10); RDW 15.4 % (11.5-14.5); WBC 7.3 10x3/uL (4.8-10.8)
--- NOTE | 2018-08-28 08:00 | NUR ---
ASSESSMENT PER FLOW SHEET. PT IS WITHOUT DISTRESS.FALL PREVENTION IN PLACE WITH RA. ISOLATION MAINTAINED
[2018-08-28 08:06] LABS: ALBUMIN 1.9 g/dL (3.4-5.0); ALKALINE PHOSPHATASE 95 U/L (46-116); ALT (SGPT) 18 U/L (10-68); BILIRUBIN - TOTAL 0.29 mg/dL (0.2-1.3); CALC OSMOLALITY 270 mosm/kg (275-300); CALCIUM 8.8 mg/dL (8.5-10.1); CARBON DIOXIDE 25.3 mmol/L (21.0-32.0); CHLORIDE - SERUM 103 mmol/L (98-107); CREATININE - SERUM 0.7 mg/dL (0.6-1.3); GLUCOSE 102 mg/dL (74-106); POTASSIUM - SERUM 3.8 mmol/L (3.5-5.1); PROTEIN - SERUM 7.4 g/dL (6.4-8.2); SODIUM 136 mmol/L (136-145); eGFR NON AFRICAN AMERICAN > 90 mL/min (90-120)
[2018-08-28 08:07] LABS: UREA NITROGEN 11 mg/dL (7-18)
--- NOTE | 2018-08-28 09:00 | NUR ---
UP TO CHAIR FOR BREAKFAST WITH PT.
[2018-08-28 09:42] VITALS: BP 125/79
[2018-08-28 12:52] VITALS: BP 104/62
[2018-08-28 17:06] VITALS: BP 117/69
--- NOTE | 2018-08-28 18:31 | NUR ---
REMAINS WITHOUT CHANE FROM INITIAL SHIFT ASSESSMENT. PT HAS NOT HAD EMESIS TODAY. HE HAS BEEN OUT OF BED TO AMBULATE AND SAT IN CHAIR FOR BREAKFAST AND LUNCH. CONT PLAN OF CARE
[2018-08-28 20:00] VITALS: BP 112/70
[2018-08-29] VITALS: BP 129/78
[2018-08-29 04:00] VITALS: BP 132/81
[2018-08-29 04:01] LABS: BASOPHILS 0.4 % (0-2); EOSINOPHILS 2.3 % (0-7); HEMATOCRIT 29.8 % (42.0-54.0); IMMATURE GRANULOCYTES 0.5 % (0-5); LYMPHOCYTES 10.1 % (15-50); MCH 29.7 pg (26.0-34.0); MCHC 33.6 g/dL (31.0-37.0); MCV 88.4 fL (80.0-100.0); MONOCYTES 9.1 % (2-11); NEUTROPHILS 77.6 % (40-80); PLATELET COUNT 158 10x3/uL (130-400); RBC 3.37 10x6/uL (4.20-6.10); RDW 15.5 % (11.5-14.5); WBC 8.1 10x3/uL (4.8-10.8)
[2018-08-29 04:17] LABS: ALKALINE PHOSPHATASE 95 U/L (46-116); ALT (SGPT) 19 U/L (10-68); BILIRUBIN - TOTAL 0.34 mg/dL (0.2-1.3); CALC OSMOLALITY 275 mosm/kg (275-300); CALCIUM 9.1 mg/dL (8.5-10.1); CARBON DIOXIDE 26.3 mmol/L (21.0-32.0); CHLORIDE - SERUM 105 mmol/L (98-107); CREATININE - SERUM 0.8 mg/dL (0.6-1.3); GLUCOSE 105 mg/dL (74-106); POTASSIUM - SERUM 3.8 mmol/L (3.5-5.1); PROTEIN - SERUM 7.5 g/dL (6.4-8.2); SODIUM 138 mmol/L (136-145); UREA NITROGEN 12 mg/dL (7-18); eGFR NON AFRICAN AMERICAN > 90 mL/min (90-120)
[2018-08-29 09:01] VITALS: BP 116/74
--- NOTE | 2018-08-29 10:21 | NUR ---
ALERT AND ORIENTED AND CONTINUED ON CONTACT ISOLATION FOR MRSA PACREAS ABCESS. DENIES ANY PAIN OR DISCOMFORT AT THIS TIME. FALL PRECAUSIONS IN PLACE. PASTE APPLIED TO BUTTOCK AND PERIAREA DUE TO INCONTINENCE. O2 3 LN/C WITH CAP REFILL <3SEC. LT. PICC LINE INTACT W/O ANY /S OF INFECTION OR INFILTRATION WITH IVF INFUSING AT PRESCRIBED RATE. ENCOURAGED TO USE CALL LIGHT FOR ASSIST.
--- NOTE | 2018-08-29 12:44 | MORECARE ---
CASE MANAGEMENT DISCHARGE SUMMARY PATIENT: NILAY FORRESTER UNIT: [id number] ADM DATE: 08/08/18 AGE: 83 : 36 SEX: M ROOM/BED: D.2218 AUTHOR: LEONARDO CELAYA PHYSICIAN: REFERRING PHYSICIAN: HERBERTH WILSON MD DATE OF SERVICE: 08/29/18 Discharge Plan Patient Name: NILAY FORRESTER Facility: [facility]:[place] : 1935 Planned Disposition: Assisted Living Anticipated Discharge Date: 08/11/18 Discharge Date: Expected LOS: 3 Initial Reviewer: [email or web address] Initial Review Date: 08/08/2018 Generated: 08/29/18 1:43 pm Comments DCP- Discharge Planning Updated by [email or web address]: Lita Limon on 08/29/18 11:[address] IMM SERVED AND EXPLAINED. ANTICIPATE DC TO INPATIENT REHAB LATER THIS AFTERNOON DCP- Discharge Planning Updated by [id number]: Adelaida Aj on 08/10/18 4:[address] CM RECEIVED AN ORDER FOR DISCHARGE PLANNING. THIS PATIENT WAS SEEN IN THE ER FOR DISCHARGE PLANNING. HE LIVES AT [facility] WITH HIS ON THE 3RD FLOOR. HAS [facility] AND [facility]IST[facility].PLANS FOR RESUMPTION OF CARE AT DISCHARGE.PCP- DR PINEDO. PHARMACY - [facility]. WILL HAVE TRANSPORTATION TO HOME. HE IS SITTINGUP AT A 90 DEGREES IN BED. STATES HE IS VERY, VERY NAUSEOUS. CM WILL FOLLOW TO ASSIST IS APPROPRIATE. DCP- Discharge Planning Updated by [id number]: Selena Mccartney on 08/08/18 2:[address] Patient Name: NILAY FORRESTER Admission Status: ER Accout number: [id number] Admission Date: 08-08-2018 : 1935 Admission Diagnosis: Attending: HERBERTH WILSON Current LOS: 1 Anticipated DC Date: 08-11-2018 Planned Disposition: Assisted Living Primary Insurance: MEDICARE A & B Discharge Planning Comments: CM met with patient to complete initial dc planning assessment. CM educated patient on the CM role and verbal consent given by patient to complete assessment. CM verified patient's address, phone number, and emergency contact phone numbers. Patient lives at [facility] with his . Patient currently has [facility] and wishes to resume at discharge. MARY form signed by patient for resumption of [facility]. Signed form placed in chart and signed form given to patient. At discharge patient plans to return [facility] and feels this is a safe discharge. Patient denied further known discharge needs at this time. . Patient reports [facility] will transport him home at time of discharge.CM will continue to follow and will assist as needed with dc plans/needs. Grade Tamper: Selena Mccartney RN, [facility] DCPIA - Discharge Planning Initial Assessment Updated by [id number]: Selena Mccartney on 08/08/18 3:19 pm * Is the patient Alert and Oriented? Yes * How many steps to enter\exit or inside your home? None * PCP Dr. Pinedo * Pharmacy [facility] [address]. * Preadmission Environment Assisted Living * Facility Name [facility] * ADLs Partial Dependent * Partial ADLs (Assistance needed) Ambulation Medication Management * Equipment Rolling Walker Wheelchair * List name and contact numbers for known caregivers / representatives who currently or will assist patient after discharge: Ade Diggs - [phone] Berny Diggs son - [phone] * Please name any agencies selected above. [facility] - MARY singed in ER for resumption at time of discharge. * Additional services required to return to the preadmission environment? No * Can the patient safely return to the preadmission environment? Yes * Has this patient been hospitalized within the prior 30 days at any hospital? Yes Coverage Notice Reviewer: [email or web address] Dontae Limon Notice Issued Date-Time: 08/29/2018 12:20 Notice Type: IM Discharge Notice Notice Delivered To: Patient Relationship to Patient: Bandage Maker Name: Delivery Method: HAND - Hand Delivered Kelly Days: Prior Verbal Notification: Recipient Understood Notice: Yes Recipient Signature: Yes Med Rec Note Co-signed by Attending: Coverage Notice Comment: Last DP export: 08/10/18 4:19 p Patient Name: NILAY FORRESTER Page [id number] at 1024 All edits/amendments must be made on the electronic document DICTATION DATE: 08/29/18 1243 CAD INTERN: DEMIAN 08/29/18 1243 RPT#: [id number] DC DATE: STATUS: ADM IN [facility] [address] [facility] [place] [address] END OF REPORT
[2018-08-29 13:07] VITALS: BP 92/55
--- NOTE | 2018-08-29 14:11 | MORECARE ---
CASE MANAGEMENT DISCHARGE SUMMARY PATIENT: NILAY FORRESTER UNIT: [id number] ADM DATE: 08/08/18 AGE: 83 : 36 SEX: M ROOM/BED: D.2218 AUTHOR: BELIADOC PHYSICIAN: REFERRING PHYSICIAN: HERBERTH WILSON MD DATE OF SERVICE: 08/29/18 Discharge Plan Patient Name: NILAY FORRESTER Facility: [facility]:[place] : 1935 Planned Disposition: Assisted Living Anticipated Discharge Date: 08/11/18 Discharge Date: Expected LOS: 3 Initial Reviewer: [email or web address] Initial Review Date: 08/08/2018 Generated: 08/29/18 3:11 pm Comments DCP- Discharge Planning Updated by [email or web address]: Lita Limon on 08/29/18 1:[address] Patient will not be discharging to inpatient rehab today due to him needing a repeat ct scan that is ordered for Saturday. DCP- Discharge Planning Updated by [email or web address]: Lita Limon on 08/29/18 11:[address] IMM SERVED AND EXPLAINED. ANTICIPATE DC TO INPATIENT REHAB LATER THIS AFTERNOON DCP- Discharge Planning Updated by [id number]: Adelaida Aj on 08/10/18 4:[address] CM RECEIVED AN ORDER FOR DISCHARGE PLANNING. THIS PATIENT WAS SEEN IN THE ER FOR DISCHARGE PLANNING. HE LIVES AT [facility] WITH HIS ON THE 3RD FLOOR. HAS [facility].PLANS FOR RESUMPTION OF CARE AT DISCHARGE.PCP- DR PINEDO. PHARMACY - [facility]. WILL HAVE TRANSPORTATION TO HOME. HE IS SITTINGUP AT A 90 DEGREES IN BED. STATES HE IS VERY, VERY NAUSEOUS. CM WILL FOLLOW TO ASSIST IS APPROPRIATE. DCP- Discharge Planning Updated by [id number]: Selena Mccartney on 08/08/18 2:[address] Patient Name: NILAY FORRESTER Admission Status: ER Accout number: [id number] Admission Date: 08-08-2018 : 1935 Admission Diagnosis: Attending: HERBERTH WILSON Current LOS: 1 Anticipated DC Date: 08-11-2018 Planned Disposition: Assisted Living Primary Insurance: MEDICARE A & B Discharge Planning Comments: CM met with patient to complete initial dc planning assessment. CM educated patient on the CM role and verbal consent given by patient to complete assessment. CM verified patient's address, phone number, and emergency contact phone numbers. Patient lives at [facility] with his . Patient currently has [facility] and wishes to resume at discharge. MARY form signed by patient for resumption of [facility]. Signed form placed in chart and signed form given to patient. At discharge patient plans to return [facility] and feels this is a safe discharge. Patient denied further known discharge needs at this time. . Patient reports [facility] will transport him home at time of discharge.CM will continue to follow and will assist as needed with dc plans/needs. Line Rider: Selena Mccartney RN, [facility] DCPIA - Discharge Planning Initial Assessment Updated by [id number]: Selena Mccartney on 08/08/18 3:19 pm * Is the patient Alert and Oriented? Yes * How many steps to enter\exit or inside your home? None * PCP Dr. Pinedo * Pharmacy [facility] [address]. * Preadmission Environment Assisted Living * Facility Name [facility] * ADLs Partial Dependent * Partial ADLs (Assistance needed) Ambulation Medication Management * Equipment Rolling Walker Wheelchair * List name and contact numbers for known caregivers / representatives who currently or will assist patient after discharge: Ade Diggs - [phone] Berny Diggs son - [phone] * Please name any agencies selected above. [facility] - MARY singed in ER for resumption at time of discharge. * Additional services required to return to the preadmission environment? No * Can the patient safely return to the preadmission environment? Yes * Has this patient been hospitalized within the prior 30 days at any hospital? Yes Coverage Notice Reviewer: [id number] - Lita Limon Notice Issued Date-Time: 08/29/2018 12:20 Notice Type: IM Discharge Notice Notice Delivered To: Patient Relationship to Patient: Brake Press Operator Name: Delivery Method: HAND - Hand Delivered Kelly Days: Prior Verbal Notification: Recipient Understood Notice: Yes Recipient Signature: Yes Med Rec Note Co-signed by Attending: Coverage Notice Comment: Last DP export: 08/29/18 11:44 a Patient Name: NILAY FORRESTER Page [id number] at 1411 All edits/amendments must be made on the electronic document DICTATION DATE: 08/29/181409 AND TAXI INSTRUCTOR BUS TROLLEY: DEMIAN 08/29/181409 RPT#: [id number] DC DATE: STATUS: ADM IN [facility] [address] [place] [address] END OF REPORT
--- NOTE | 2018-08-29 15:27 | NUR ---
Pt skin is red and excoriated on coccyx and perineal area. He states it feels "raw". Also noted on the tip of the sacrum a 0.5cm x 0.5cm dark spot that appears to be a deep tissue injury. He states it does not hurt and is not uncomfortable. Recommend: Calmoseptine cream to perineal area Mepilex sacral dressing to protect sacrum Remind pt to turn/reposition himself in bed Protect bony prominences Wound care will continue monitoring.
[2018-08-29 17:23] VITALS: BP 123/70
[2018-08-29 20:00] VITALS: BP 130/76
[2018-08-30] VITALS: BP 132/67
[2018-08-30 03:00] VITALS: BP 140/76
[2018-08-30 07:13] LABS: BASOPHILS 0.2 % (0-2); EOSINOPHILS 2.9 % (0-7); HEMOGLOBIN 8.8 g/dL (13.5-17.5); IMMATURE GRANULOCYTES 0.6 % (0-5); LYMPHOCYTES 7.9 % (15-50); MCH 28.9 pg (26.0-34.0); MCHC 32.6 g/dL (31.0-37.0); MCV 88.5 fL (80.0-100.0); MEAN PLATELET VOLUME 11.1 fL (7.4-10.4); MONOCYTES 10.3 % (2-11); NEUTROPHILS 78.1 % (40-80); PLATELET COUNT 159 10x3/uL (130-400); RBC 3.05 10x6/uL (4.20-6.10); RDW 15.5 % (11.5-14.5); WBC 8.7 10x3/uL (4.8-10.8)
[2018-08-30 07:40] LABS: ALBUMIN 1.8 g/dL (3.4-5.0); ANION GAP 11.4 mmol/L (8-16); BILIRUBIN - TOTAL 0.26 mg/dL (0.2-1.3); CALCIUM 8.9 mg/dL (8.5-10.1); CARBON DIOXIDE 25.3 mmol/L (21.0-32.0); POTASSIUM - SERUM 3.7 mmol/L (3.5-5.1); PROTEIN - SERUM 6.7 g/dL (6.4-8.2)
[2018-08-30 07:45] LABS: CREATININE - SERUM 1.9 mg/dL (0.6-1.3)
[2018-08-30 09:04] VITALS: BP 147/89
--- NOTE | 2018-08-30 10:03 | NUR ---
ALERT AND ORIENTED X3. BILIARY DRAIN INTACT AND DRAINING WITH LIGHT BROWN DRAINAGE NOTED. O2 3L N/C WITH LUNGS CTA. MEPILEX DRESSING INTACT TO COCCYX. PT UP WITH MODERATE ASSIST TO CHAIR FOR MEALS. PICC LINE TO LT ARM INTACT WITH IVF INFUSING AT PRESCRIBED RATE. CONTINUED CONTACT ISOLATION AT THIS TIME. ENCOURAGED TO USE CALL LIGHT FOR ASSIST.
[2018-08-30 13:22] VITALS: BP 110/66
--- NOTE | 2018-08-30 17:04 | NUR ---
RESTING WITH EYES CLOSED WITH RESP EVEN AND UNLABORED.RESTING ON LT. SIDE FOR POSITIONING. BILIARY DRAIN INTACT. DENIES ANY PAIN OR DISCOMFORT. ENCOURAGED TO USE CALL LIGHT FOR ASSIST.
[2018-08-30 17:13] VITALS: BP 134/82
--- NOTE | 2018-08-30 19:15 | NUR ---
RECEIVED CARE FROM DAY NURSE. LYING IN BED WATCHING TV. IV INFUSING PER ORDER TO PATENT LEFT PIC. CALL LIGHT AT SIDE.
[2018-08-30 20:00] VITALS: BP 130/82
[2018-08-31] VITALS: BP 125/77
--- NOTE | 2018-08-31 03:27 | NUR ---
I have reviewed this patient and I concur with the Shift Assessment completed by the Licensed Practical Nurse today this shift.
[2018-08-31 04:36] VITALS: BP 138/84
[2018-08-31 07:26] LABS: BASOPHILS 0.4 % (0-2); EOSINOPHILS 2.2 % (0-7); HEMATOCRIT 26.6 % (42.0-54.0); HEMOGLOBIN 8.6 g/dL (13.5-17.5); IMMATURE GRANULOCYTES 0.4 % (0-5); LYMPHOCYTES 7.3 % (15-50); MCH 28.5 pg (26.0-34.0); MCHC 32.3 g/dL (31.0-37.0); MCV 88.1 fL (80.0-100.0); MEAN PLATELET VOLUME 10.3 fL (7.4-10.4); MONOCYTES 8.9 % (2-11); NEUTROPHILS 80.8 % (40-80); PLATELET COUNT 151 10x3/uL (130-400); RBC 3.02 10x6/uL (4.20-6.10); RDW 15.5 % (11.5-14.5); WBC 8.1 10x3/uL (4.8-10.8)
[2018-08-31 08:03] LABS: ALBUMIN 1.8 g/dL (3.4-5.0); ANION GAP 13.1 mmol/L (8-16); BILIRUBIN - TOTAL 0.37 mg/dL (0.2-1.3); CALCIUM 9.2 mg/dL (8.5-10.1); CARBON DIOXIDE 23.8 mmol/L (21.0-32.0); CREATININE - SERUM 2.4 mg/dL (0.6-1.3); POTASSIUM - SERUM 3.9 mmol/L (3.5-5.1); PROTEIN - SERUM 6.7 g/dL (6.4-8.2)
[2018-08-31 08:14] VITALS: BP 140/83
--- NOTE | 2018-08-31 09:00 | NUR ---
ALERT AND ORIENTED X3.CONTINUED ON CONTACT ISOLATION FOR ABCESS TO PANCREASS. BILIARY DRAIN INTACT WITH VASQUEZ DRAINAGE NOTED. MEPILEX DRESSING INTACT TO COCCYX. ZORFAN GIVEN FOR NAUSEA. IVF INFUSING AT PRESCRIBED RATE. ENCOURAGED TO USE CALL LIGHT FOR ASSIST.
[2018-08-31 12:14] VITALS: BP 119/62
--- NOTE | 2018-08-31 15:42 | MORECARE ---
CASE MANAGEMENT DISCHARGE SUMMARY PATIENT: NILAY FORRESTER UNIT: [id number] ADM DATE: 08/08/18 AGE: 83 : 36 SEX: M ROOM/BED: D.2218 AUTHOR: LEONARDO CELAYA PHYSICIAN: REFERRING PHYSICIAN: HERBERTH WILSON MD DATE OF SERVICE: 08/31/18 Discharge Plan Patient Name: NILAY FORRESTER Facility: [facility]:[place] : 1935 Planned Disposition: Assisted Living Anticipated Discharge Date: 08/11/18 Discharge Date: Expected LOS: 3 Initial Reviewer: [email or web address] Initial Review Date: 08/08/2018 Generated: 08/31/18 4:42 pm Comments DCP- Discharge Planning Updated by [id number]: Adelaida Aj on 08/31/18 2:[address] TELEPHONE MESSAGE TO ACUTE BUSINESS DIRECTOR REGARDING ACUTE REHAB STATUS. SURGERY STATING REHAB PLACEMENT SOON. DCP- Discharge Planning Updated by [email or web address]: Lita Limon on 08/29/18 1:[address] Patient will not be discharging to inpatient rehab today due to him needing a repeat ct scan that is ordered for Saturday. DCP- Discharge Planning Updated by [id number]: Lita Limon on 08/29/18 11:[address] IMM SERVED AND EXPLAINED. ANTICIPATE DC TO INPATIENT REHAB LATER THIS AFTERNOON DCP- Discharge Planning Updated by [id number]: Adelaida Aj on 08/10/18 4:[address] CM RECEIVED AN ORDER FOR DISCHARGE PLANNING. THIS PATIENT WAS SEEN IN THE ER FOR DISCHARGE PLANNING. HE LIVES AT [facility] WITH HIS ON THE 3RD FLOOR. HAS [facility].PLANS FOR RESUMPTION OF CARE AT DISCHARGE.PCP- DR PINEDO. PHARMACY - [facility]. WILL HAVE TRANSPORTATION TO HOME. HE IS SITTINGUP AT A 90 DEGREES IN BED. STATES HE IS VERY, VERY NAUSEOUS. CM WILL FOLLOW TO ASSIST IS APPROPRIATE. DCP- Discharge Planning Updated by [id number]: Selena Mccartney on 08/08/18 2:[address] Patient Name: NILAY FORRESTER Admission Status: ER Accout number: [id number] Admission Date: 08-08-2018 : 1935 Admission Diagnosis: Attending: HERBERTH WILSON Current LOS: 1 Anticipated DC Date: 08-11-2018 Planned Disposition: Assisted Living Primary Insurance: MEDICARE A & B Discharge Planning Comments: CM met with patient to complete initial dc planning assessment. CM educated patient on the CM role and verbal consent given by patient to complete assessment. CM verified patient's address, phone number, and emergency contact phone numbers. Patient lives at [facility] with his . Patient currently has [facility] and wishes to resume at discharge. MARY form signed by patient for resumption of [facility]. Signed form placed in chart and signed form given to patient. At discharge patient plans to return [facility] and feels this is a safe discharge. Patient denied further known discharge needs at this time. . Patient reports [facility] will transport him home at time of discharge.CM will continue to follow and will assist as needed with dc plans/needs. Associate Professor Of Philosophy: Selena Mccartney RN, [facility] DCPIA - Discharge Planning Initial Assessment Updated by [id number]: Selena Mccartney on 08/08/18 3:19 pm * Is the patient Alert and Oriented? Yes * How many steps to enter\exit or inside your home? None * PCP Dr. Pinedo * Pharmacy [facility] [address]. * Preadmission Environment Assisted Living * Facility Name [facility] * ADLs Partial Dependent * Partial ADLs (Assistance needed) Ambulation Medication Management * Equipment Rolling Walker Wheelchair * List name and contact numbers for known caregivers / representatives who currently or will assist patient after discharge: Ade Diggs - [phone] Berny Diggs son - [phone] * Please name any agencies selected above. [facility] - MARY singed in ER for resumption at time of discharge. * Additional services required to return to the preadmission environment? No * Can the patient safely return to the preadmission environment? Yes * Has this patient been hospitalized within the prior 30 days at any hospital? Yes Coverage Notice Reviewer: [id number] Dontae Limon Notice Issued Date-Time: 08/29/2018 12:20 Notice Type: IM Discharge Notice Notice Delivered To: Patient Relationship to Patient: Qa Manager Name: Delivery Method: HAND - Hand Delivered Kelly Days: Prior Verbal Notification: Recipient Understood Notice: Yes Recipient Signature: Yes Med Rec Note Co-signed by Attending: Coverage Notice Comment: Last DP export: 08/29/18 1:11 p Patient Name: NILAY FORRESTER Page [id number] at 1542 All edits/amendments must be made on the electronic document DICTATION DATE: 08/31/18 154 DISTRIBUTION ASSOCIATE: DEMIAN 08/31/18 1541 RPT#: [id number] DC DATE: STATUS: ADM IN [facility] [address] [place] [address] END OF REPORT
[2018-08-31 16:58] VITALS: BP 140/74
--- NOTE | 2018-08-31 19:15 | NUR ---
RECEIVED CARE FROM DAY NURSE. LYING IN BED. BED CHANGE DONE AT THIS TIME DUE TO BEING WET. NO OTHER NEEDS VOICED. CALL LIGHT AT SIDE. IV INFUSING PER ORDER TO LEFT PICC.
[2018-08-31 20:16] VITALS: BP 146/71
--- NOTE | 2018-09-01 01:41 | NUR ---
I have reviewed this patient and I concur with the Shift Assessment completed by the Licensed Practical Nurse today this shift.
[2018-09-01 04:46] LABS: BASOPHILS 0.4 % (0-2); EOSINOPHILS 2.6 % (0-7); HEMATOCRIT 25.9 % (42.0-54.0); HEMOGLOBIN 8.4 g/dL (13.5-17.5); IMMATURE GRANULOCYTES 0.3 % (0-5); LYMPHOCYTES 7.7 % (15-50); MCH 28.3 pg (26.0-34.0); MCHC 32.4 g/dL (31.0-37.0); MCV 87.2 fL (80.0-100.0); MEAN PLATELET VOLUME 10.8 fL (7.4-10.4); MONOCYTES 9.5 % (2-11); NEUTROPHILS 79.5 % (40-80); PLATELET COUNT 155 10x3/uL (130-400); RBC 2.97 10x6/uL (4.20-6.10); RDW 15.4 % (11.5-14.5); WBC 7.8 10x3/uL (4.8-10.8)
[2018-09-01 05:03] LABS: ALBUMIN 1.7 g/dL (3.4-5.0); ANION GAP 12.9 mmol/L (8-16); BILIRUBIN - TOTAL 0.36 mg/dL (0.2-1.3); CALCIUM 9.2 mg/dL (8.5-10.1); CARBON DIOXIDE 24.1 mmol/L (21.0-32.0); CREATININE - SERUM 2.8 mg/dL (0.6-1.3); PROTEIN - SERUM 6.4 g/dL (6.4-8.2); VANCOMYCIN - RANDOM 25.3 ug/mL (10.0-20.0)
[2018-09-01 05:44] VITALS: BP 131/96
--- NOTE | 2018-09-01 08:00 | NUR ---
ASSESSMENT PER FLOW SHEET. PT IS WITHOUT DISTRESS.CALL LIGHT IN REACH
[2018-09-01 09:49] VITALS: BP 148/87
[2018-09-01 13:35] VITALS: BP 121/78
[2018-09-01 18:20] VITALS: BP 165/87
--- NOTE | 2018-09-01 18:20 | NUR ---
REMAINS WITHOUT NEEDS,WITHOUT CHNAGE.CONT PLAN OF CARE
--- NOTE | 2018-09-01 20:00 | NUR ---
ASSESSMENT PER FLOWSHEET. PT IN CONTACT ISOLATION FOR ECOLI. IV PATENT LEFT UPPERARM PICC LINE OF PROCAL AT 50CC'S/HR AND NS AT 50CC'S/HR SITE CLEAR. RA MAT IN USE REFUSES SCD'S. SR UP X2 CALL LIGHT WITHIN REACH. TELM. SHOWS SR WITH HR 89. NO DISTRESS. COLOR PALE. ALERT/ORIENTED X4. DRSG TO BUTTOCK C/D/I. LEFT UPPER ABDOMEN WITH BILI DRAIN IN PLACE [place] COLORED DRAINAGE NOTED.
--- NOTE | 2018-09-01 21:00 | NUR ---
MEDS GIVEN PER MAY. SPILLED URINE IN BED COMPLETE BED BATH WITH LINENS CHANGE DONE.
[2018-09-01 21:04] VITALS: BP 158/80
--- NOTE | 2018-09-01 22:52 | NUR ---
EYES CLOSED RESPIRATIONS WITH EASE AND UNLABORED.
[2018-09-02] VITALS: BP 147/81
--- NOTE | 2018-09-02 03:30 | NUR ---
MEDS GIVEN PER MAY. SPILLED URINAL IN BED. COMPLETE BED BATH WITH LINENS CHANGED. REMAINS NPO FOR IR PROCEDURE IN AM.
[2018-09-02 04:30] VITALS: BP 146/82
[2018-09-02 06:43] LABS: BASOPHILS 0.3 % (0-2); EOSINOPHILS 2.5 % (0-7); HEMATOCRIT 26.4 % (42.0-54.0); HEMOGLOBIN 8.6 g/dL (13.5-17.5); IMMATURE GRANULOCYTES 0.3 % (0-5); LYMPHOCYTES 10.1 % (15-50); MCH 28.7 pg (26.0-34.0); MCHC 32.6 g/dL (31.0-37.0); MEAN PLATELET VOLUME 10.4 fL (7.4-10.4); MONOCYTES 10.9 % (2-11); NEUTROPHILS 75.9 % (40-80); PLATELET COUNT 149 10x3/uL (130-400); RDW 15.5 % (11.5-14.5)
[2018-09-02 06:52] LABS: ANION GAP 14.2 mmol/L (8-16); CALCIUM 9.1 mg/dL (8.5-10.1); CARBON DIOXIDE 23.7 mmol/L (21.0-32.0); CREATININE - SERUM 2.8 mg/dL (0.6-1.3); POTASSIUM - SERUM 3.9 mmol/L (3.5-5.1); VANCOMYCIN - RANDOM 19.9 ug/mL (10.0-20.0)
[2018-09-02 07:00] VITALS: BP 152/75
[2018-09-02 07:52] LABS: APTT 31.3 SECONDS (22.8-39.4); INR 1.31 (0.85-1.17); PROTIME 15.8 SECONDS (11.6-15.0)
--- NOTE | 2018-09-02 08:00 | NUR ---
ASSESSMENT PER FLOW SHEET. PT IS WITHOUT DISTRESS.NPO FOR PROCEDURE TODAY.ISOLATION MAINTAINED
--- NOTE | 2018-09-02 10:53 | NUR ---
LEFT UNIT VIA BED FOR PROCEDURE
[2018-09-02 11:00] VITALS: BP 155/82
--- NOTE | 2018-09-02 12:18 | NUR ---
NUTRITION F/U PT CURRENTLY NPO S/P PROCEDURE. PROCALAMINE AT 50 CC/HR. WILL PROVIDE DIET WHEN RESUMED, MONITOR PO INTAKE. RD FOLLOWING
--- NOTE | 2018-09-02 15:20 | NUR ---
PT IS REFUSING KAYLEEN
[2018-09-02 17:11] VITALS: BP 141/71
--- NOTE | 2018-09-02 18:05 | NUR ---
REMAINS WITHOUT NEEDS,WITHOUT DISTRESS. STILL RFUSES TO TAKE PO MEDS. REFUSED DOBHOFF TUBE TODAY WHEN ICU NURSE AYDE CAME OVER. BITES OF FOOD.DRINKING MORE.CONT PLAN OF CARE
--- NOTE | 2018-09-02 20:00 | NUR ---
ASSESSMENT PER FLOWSHEET. PT IN CONTACT ISOLATION. SR UP X2 CALL LIGHT WITHIN REACH. RA MAT TO BED WITH ALARMS SET. IV PATENT LEFT PICC LINE OF NS AT 50CC'S/HR AND PROCAL AT 50CC'S/HR LEFT MID ABDOMEN WITH BILI DRAIN IN PLACE [place] COLOR DRAINAGE NOTED. TELM. SHOWS SR. DRSG TO BUTTOCK C/D/I. VOIDS IN URINAL SMALL AMOUNTS CLEAR YELLOW URINE.
[2018-09-02 21:28] VITALS: BP 162/92
--- NOTE | 2018-09-02 22:00 | NUR ---
MEDS TAKEN PER MAR. PATIENT TOOK MEDS WITH HIS ENSURE DRINK.
--- NOTE | 2018-09-03 | NUR ---
EYES CLOSED RESPIRATIONS WITH EASE AND UNLABORED.
--- NOTE | 2018-09-03 02:00 | NUR ---
SPILLED URINE IN BED. BATH WITH LINENS CHANGED.
[2018-09-03 02:13] VITALS: BP 165/87
--- NOTE | 2018-09-03 04:02 | NUR ---
PATIENT AWAKE AND NOW THINKS HE MIGHT WANT THE DOBHOF TUBE PLACED INFORMED PATIENT THAT A NURSE FROM ICU WOULD HAVE TO PLACE IN AND AN XRAY TAKEN TO CONFIRM PLACEMENT. AT THIS TIME ICU NURSES ARE TOO BUSY AND CANNOT COME AT THIS TIME.
[2018-09-03 04:50] VITALS: BP 160/84
[2018-09-03 05:29] LABS: BASOPHILS 0.6 % (0-2); EOSINOPHILS 1.5 % (0-7); HEMATOCRIT 27.2 % (42.0-54.0); HEMOGLOBIN 8.9 g/dL (13.5-17.5); IMMATURE GRANULOCYTES 0.3 % (0-5); MCH 28.7 pg (26.0-34.0); MCHC 32.7 g/dL (31.0-37.0); MCV 87.7 fL (80.0-100.0); MEAN PLATELET VOLUME 10.3 fL (7.4-10.4); MONOCYTES 10.7 % (2-11); NEUTROPHILS 76.9 % (40-80); PLATELET COUNT 152 10x3/uL (130-400); RDW 15.4 % (11.5-14.5); WBC 6.6 10x3/uL (4.8-10.8)
[2018-09-03 05:45] LABS: ANION GAP 14.5 mmol/L (8-16); CALCIUM 9.2 mg/dL (8.5-10.1); CARBON DIOXIDE 24.2 mmol/L (21.0-32.0); POTASSIUM - SERUM 3.7 mmol/L (3.5-5.1); VANCOMYCIN - RANDOM 17.6 ug/mL (10.0-20.0)
--- NOTE | 2018-09-03 07:40 | NUR ---
PT RESTING IN BED, EYES OPEN. HAS NUMEROUS QUESTIONS THIS MORNING. ALERT AND ORIENTED. BILIDRAIN TO LEFT SIDE OF ABDOMEN, ELLINGTON COLORED DRAINAGE. REFUSED SCDS. PICC TO LEFT CHEST, NS INFUSING @ 50ML/HR AND PROCAL @ 50ML/HR. TELEMETRY SR 95. MEPALEX TO BUTTOCKS. PT ON EGG CRATE MATTRESS. PT DENIES ANYTHING FURTHER AT THIS TIME. CALL LIGHT IN REACH. WILL CONTINUE TO MONITOR.
[2018-09-03 08:54] VITALS: BP 149/85
[2018-09-03 12:26] LABS: CREATININE - URINE 34.9 mg/dL (30-125); PRO/CRE RATIO URINE 0.8 mg/g; PROTEIN - URINE 28.6 mg/dL (0.0-11.9)
[2018-09-03 12:43] VITALS: BP 130/76
[2018-09-03 13:09] LABS: APPEARANCE CLOUDY (CLEAR); BILIRUBIN NEGATIVE (NEGATIVE); COLOR YELLOW (YELLOW); GLUCOSE NEGATIVE (NEGATIVE); KETONE NEGATIVE (NEGATIVE); NITRITE NEGATIVE (NEGATIVE); PROTEIN TRACE mg/dL (NEGATIVE); RED CELLS - URINE RARE /hpf (0-5); UROBILINOGEN NORMAL (NORMAL); WHITE CELLS - URINE OCC /hpf (0-5)
[2018-09-03 13:10] LABS: BACTERIA FEW /hpf (NONE SEEN); EPITHELIAL CELLS 0-5 /hpf (0-5); YEAST <1+ /hpf (NONE SEEN)
[2018-09-03 17:05] VITALS: BP 133/88
--- NOTE | 2018-09-03 20:20 | NUR ---
LYING IN BED. ALERT AND ORIENTED X4. RESP EVEN AND NONLABORED. BILI DRAIN NOTED TO ABD WITH THICK ELLINGTON DRAINAGE NOTED. TELEMETRY SHOWS ST WITH RATE OF 105. BILAT GROIN AND BUTTOCKS ARE RED AND EXCORIATED. INCONT OF STOOL. BUTT PASTE APPLIED TO GROIN AND BUTTOCKS. BRUISES NOTED TO BUE. ABD IS DISTENDED AND SOFT. PROCAL @ 50 MLHR AND NS @ 50 MLHR INFUSING IN LT UPPER ARM PICC WITHOUT DIFF. RA ALARM ON FOR PT SAFETY. DENIES PAIN. SR ELEVATED X2. CL IN REACH.
[2018-09-03 21:27] VITALS: BP 158/82
--- NOTE | 2018-09-04 03:10 | NUR ---
C/O NAUSEA. MEDICATED WITH ZOFRAN ORDERED. CL IN REACH.
[2018-09-04 05:45] LABS: BASOPHILS 0.8 % (0-2); EOSINOPHILS 2.1 % (0-7); HEMATOCRIT 25.5 % (42.0-54.0); HEMOGLOBIN 8.4 g/dL (13.5-17.5); IMMATURE GRANULOCYTES 0.2 % (0-5); LYMPHOCYTES 10.4 % (15-50); MCH 28.9 pg (26.0-34.0); MCHC 32.9 g/dL (31.0-37.0); MCV 87.6 fL (80.0-100.0); MEAN PLATELET VOLUME 10.9 fL (7.4-10.4); MONOCYTES 12.1 % (2-11); NEUTROPHILS 74.4 % (40-80); PLATELET COUNT 151 10x3/uL (130-400); RBC 2.91 10x6/uL (4.20-6.10); RDW 15.5 % (11.5-14.5); WBC 6.2 10x3/uL (4.8-10.8)
[2018-09-04 05:56] LABS: ANION GAP 16.8 mmol/L (8-16); CALCIUM 9.2 mg/dL (8.5-10.1); CARBON DIOXIDE 22.9 mmol/L (21.0-32.0); POTASSIUM - SERUM 3.7 mmol/L (3.5-5.1)
[2018-09-04 06:17] VITALS: BP 157/83
--- NOTE | 2018-09-04 07:35 | NUR ---
PT RESTING IN BED, EYES CLOSED. RESPIRATIONS EVEN AND UNLABORED. NO C/O PAIN. NO S/S OF ACUTE DISTRESS NOTED. FALL PRECAUTIONS IN PLACE. PT DENIES ANYTHING FURTHER AT THIS TIME. WILL CONTINUE TO MONITOR.
--- NOTE | 2018-09-04 08:45 | NUR ---
CALLED ICU ABOUT PT GETTING DUBHOFF DONE TODAY. ICU STAFF TOLD THIS NURSE THEY WOULD LET THIS NURSE KNOW WHEN SOMEONE WOULD BE ABLE TO DO PROCEDURE.
[2018-09-04 10:08] VITALS: BP 137/76
--- NOTE | 2018-09-04 11:37 | NUR ---
Rehab Note- Continue to follow at this time. Spoke with TERI Son concerning the patient. Thank you for this referral! Hiral Hugo RN CLinical Liaison, [facility]
[2018-09-04 12:00] LABS: MAGNESIUM - SERUM 2.2 mg/dL (1.8-2.4); PHOSPHOROUS 4.8 mg/dL (2.5-4.9)
[2018-09-04 13:03] VITALS: BP 119/69
--- NOTE | 2018-09-04 14:12 | NUR ---
I have reviewed this patient and I concur with the Shift Assessment completed by the Licensed Practical Nurse today this shift.
[2018-09-04 16:58] VITALS: BP 151/92
--- NOTE | 2018-09-04 18:51 | NUR ---
PT RESTING IN BED, EYES CLOSED. RESPIRATIONS EVEN AND UNLABORED. NO C/O PAIN. NO S/S OF ACUTE DISTRESS NOTED. CALL LIGHT IN REACH. WILL CONTINUE TO MONITOR.
--- NOTE | 2018-09-04 20:00 | NUR ---
LYING IN BED. ALERT AND ORIENTED X4 BUT FORGETFUL. TELEEMTRY SHOWS ST WITH RATE OF 114. DENIES PAIN. BILI DRAIN NOTED TO LT ABD WITH THICK ELLINGTON DRAINAGE IN BAG. INCONT OF URINE AT TIMES. COMPLETE LINEN CHANGE DONE. BILAT GROINS AND BUTTOCKS ARE RED AND EXCORIATED. EGGCRATE MATTRESS IN USE. BRUISES NOTED TO BUE. PROCAL @ 50 MLHR AND NS @ 50 ML/HR INFUSING IN LT UPPER ARM PICC WITHOUT DIFF. SR ELEVATED X2. CL IN REACH. RA ALARM ON.
[2018-09-04 21:16] VITALS: BP 168/92
--- NOTE | 2018-09-04 23:00 | NUR ---
24 HOUR URINE ORDER NOTED FROM EARLIER TODAY. PT IS INCONT AT TIMES. [place] CONDOM CATH APPLIED AT THIS TIME IN ORDER TO COLLECT SPECIMEN. INSTRUCTED PT ON THIS AND HE VERBALIZED UNDERSTANDING.
[2018-09-05 00:26] VITALS: BP 174/80
--- NOTE | 2018-09-05 01:00 | NUR ---
PT CALLED STAFF INTO ROOM TO REPORT HIS BED WAS WET. STAFF OBSERVED [place] CATH PULLED OFF AND PEREZ BAG IN BED WITH PT. PT HAD PULLED IT OFF AND PULLED BAG INTO THE BED WITH HIM. INFORMED PT THAT HE NEEDS TO USE URINAL IF HE ISNT GOING TO KEEP CATH ON. NOTIFIED CHARGE NURSE OF NONCOMPLIANCE.
--- NOTE | 2018-09-05 05:02 | NUR ---
HAS BEEN INCONTINENT OF URINE MOST OF NIGHT AND HAVE HAD A DIFF TIME TRYING TO GET 24 HOUR URINE OR SPECIMEN. COMPLETE LINEN CHANGE AGAIN AT THIS TIME.
[2018-09-05 05:12] VITALS: BP 150/64
--- NOTE | 2018-09-05 06:26 | NUR ---
INCONT OF URINE. PAD CHANGED AT THIS TIME. CL IN REACH.
[2018-09-05 07:03] LABS: CALCIUM 8.9 mg/dL (8.5-10.1); CARBON DIOXIDE 24.4 mmol/L (21.0-32.0); CREATININE - SERUM 2.9 mg/dL (0.6-1.3); POTASSIUM - SERUM 3.4 mmol/L (3.5-5.1); VANCOMYCIN - RANDOM 16.5 ug/mL (10.0-20.0)
[2018-09-05 07:06] LABS: BASOPHILS 0.3 % (0-2); EOSINOPHILS 1.5 % (0-7); HEMATOCRIT 25.4 % (42.0-54.0); HEMOGLOBIN 8.3 g/dL (13.5-17.5); IMMATURE GRANULOCYTES 0.2 % (0-5); LYMPHOCYTES 8.3 % (15-50); MCH 28.5 pg (26.0-34.0); MCHC 32.7 g/dL (31.0-37.0); MCV 87.3 fL (80.0-100.0); MONOCYTES 10.3 % (2-11); NEUTROPHILS 79.4 % (40-80); PLATELET COUNT 141 10x3/uL (130-400); RBC 2.91 10x6/uL (4.20-6.10); RDW 15.8 % (11.5-14.5)
[2018-09-05 07:07] LABS: WBC 8.8 10x3/uL (4.8-10.8)
[2018-09-05 08:58] VITALS: BP 147/82
--- NOTE | 2018-09-05 09:00 | NUR ---
ALERT AND ORIENTED WITH INTERMITTANT URINARY INCONTINENCE. BILIARY DRRAIN INTACT. TELEMETRY INTACT WITH ST 125. IVF INFUSING AT PRESCRIBED RATE VIA MEDIPORT. DENIES ANY PAIN OR DISCOMFORT AT THIS TIME. ENCOURAGED TO USE CALL LIGHT FOR ASSSIT.
[2018-09-05 13:05] VITALS: BP 150/81
--- NOTE | 2018-09-05 13:12 | NUR ---
Nutrition Follow Up: Chart reviewed. Pt scheduled for EGD with PEG placement on Saturday. Diet: Regular; Ensure TID PO Intake: 10% meal avg I>O BM: 09/04/18 No new wt to assess Labs noted Meds reviewed including Procalamine @ 50 ml/hr Rec continue current diet, supplement regimen as tolerated. RD following.
--- NOTE | 2018-09-05 15:00 | NUR ---
FLUSHED DRAIN WITH BROWN DRAINAGE COMINF FROM BESIDE TUBE SITE. DR. MORGAN CANALES.
[2018-09-05 18:05] VITALS: BP 153/93
--- NOTE | 2018-09-05 18:19 | NUR ---
PT LEFT FLOOR FOR CT OF ABDOMEN AND PELVIS.
[2018-09-05 20:02] VITALS: BP 156/96
--- NOTE | 2018-09-06 02:30 | NUR ---
PT INCONTINENT OF URINE. COMPLETED BED AND GOWN CHANGE. ADDED ICE TO 24 HOUR URINE. NO OTHER NEEDS. WILL CONTINUE TO MONITOR.
[2018-09-06 04:39] VITALS: BP 150/50
[2018-09-06 06:50] LABS: BASOPHILS 0.3 % (0-2); EOSINOPHILS 0.8 % (0-7); HEMATOCRIT 28.4 % (42.0-54.0); HEMOGLOBIN 9.3 g/dL (13.5-17.5); IMMATURE GRANULOCYTES 0.3 % (0-5); LYMPHOCYTES 4.4 % (15-50); MCH 28.5 pg (26.0-34.0); MCHC 32.7 g/dL (31.0-37.0); MCV 87.1 fL (80.0-100.0); MEAN PLATELET VOLUME 10.8 fL (7.4-10.4); MONOCYTES 10.2 % (2-11); PLATELET COUNT 146 10x3/uL (130-400); RBC 3.26 10x6/uL (4.20-6.10); RDW 15.9 % (11.5-14.5)
[2018-09-06 06:52] LABS: WBC 15.6 10x3/uL (4.8-10.8)
[2018-09-06 07:04] LABS: ANION GAP 16.8 mmol/L (8-16); CALCIUM 8.9 mg/dL (8.5-10.1); CARBON DIOXIDE 23.2 mmol/L (21.0-32.0); PHOSPHOROUS 4.7 mg/dL (2.5-4.9); VANCOMYCIN - RANDOM 12.9 ug/mL (10.0-20.0)
[2018-09-06 08:09] VITALS: BP 154/98
[2018-09-06 12:12] VITALS: BP 152/100
[2018-09-06 12:34] LABS: CREATININE - URINE 27.1 mg/dL (30-125)
[2018-09-06 16:22] VITALS: BP 150/100
[2018-09-07 00:31] VITALS: BP 148/92
--- NOTE | 2018-09-07 06:26 | NUR ---
PT REFUSED ALL ORAL MEDS LAST NIGHT AND THIS MORNING. PT INCONTINENT AT TIMES. CHANGED BED LINENS. BUTTOCKS REDDENED. APPLIED BUTT PASTE. NO OTHER NEEDS. WILL CONTINUE TO MONITOR.
[2018-09-07 06:48] LABS: BASOPHILS 0.3 % (0-2); EOSINOPHILS 0.6 % (0-7); HEMATOCRIT 26.2 % (42.0-54.0); HEMOGLOBIN 8.7 g/dL (13.5-17.5); IMMATURE GRANULOCYTES 0.5 % (0-5); LYMPHOCYTES 4.6 % (15-50); MCH 28.8 pg (26.0-34.0); MCHC 33.2 g/dL (31.0-37.0); MCV 86.8 fL (80.0-100.0); MEAN PLATELET VOLUME 11.1 fL (7.4-10.4); MONOCYTES 12.5 % (2-11); NEUTROPHILS 81.5 % (40-80); PLATELET COUNT 162 10x3/uL (130-400); RBC 3.02 10x6/uL (4.20-6.10)
[2018-09-07 07:12] LABS: INR 1.33 (0.85-1.17)
[2018-09-07 08:31] LABS: ANION GAP 17.1 mmol/L (8-16); CARBON DIOXIDE 21.4 mmol/L (21.0-32.0); CREATININE - SERUM 2.8 mg/dL (0.6-1.3); MAGNESIUM - SERUM 1.9 mg/dL (1.8-2.4); PHOSPHOROUS 4.4 mg/dL (2.5-4.9); POTASSIUM - SERUM 3.5 mmol/L (3.5-5.1); VANCOMYCIN - RANDOM 14.7 ug/mL (10.0-20.0)
--- NOTE | 2018-09-07 09:00 | NUR ---
PT CONTINUED TO REFUSE MEDICATIONS BY NOUTH EVEN CRUSHED WITH PUDDING. UP TO CHAIR WITH ASSIST WITH THERAPY. LUNGS CTA.HRRR WITH TEMEMETY ST 123HR. DENIES ANY PAIN OR IDSCOMFORT. ENCOURAGED TO USE CALL LIGHT FOR ASSIST.
[2018-09-07 09:39] VITALS: BP 146/90
[2018-09-07 14:17] VITALS: BP 136/79
[2018-09-07 16:59] VITALS: BP 153/99
--- NOTE | 2018-09-07 18:48 | NUR ---
PT AWAKE RESTING IN BED TALKING ON [place] WITH DAUGHTER. CONSENTS SIGNED FOR PROCEDURE. PT NPO AFTER MIDNIGHT. PERICARE DONE PRN FOR INCONTINCE EPISODES. WITH FALL PRECAUTIONS IN PLACE.
[2018-09-07 20:00] VITALS: BP 145/93
[2018-09-08] VITALS (19 sets, daily range): BP systolic 109–161; BP diastolic 68–101
--- NOTE | 2018-09-08 00:30 | NUR ---
PT ROUSES EASILY. RESPONDS TO VERBAL STIMULI , FOLLOWING SIMPLE COMMANDS AND ANSWERING QUESTIONS WITH NOD OF HEAD
--- NOTE | 2018-09-08 01:30 | NUR ---
PT PARTIALLY VOIDED IN URINAL AND ON BED. COMPLETE BED CHANGE. CHANGED DRESSING ON DRAIN SITE. WAS WET WITH PURULENT DRAINAGE. PT C/O NECK PAIN. GAVE TYLENOL LIQUID AND A WARM PACK BEHIND NECK. NO OTHER NEEDS. CONTACT ISOLATION PRECAUTIONS OBSERVED.
[2018-09-08 06:48] LABS: BASOPHILS 0.2 % (0-2); EOSINOPHILS 0.1 % (0-7); HEMOGLOBIN 8.8 g/dL (13.5-17.5); IMMATURE GRANULOCYTES 0.5 % (0-5); LYMPHOCYTES 3.6 % (15-50); MCH 28.1 pg (26.0-34.0); MCHC 32.6 g/dL (31.0-37.0); MCV 86.3 fL (80.0-100.0); MEAN PLATELET VOLUME 11.1 fL (7.4-10.4); MONOCYTES 9.1 % (2-11); NEUTROPHILS 86.5 % (40-80); RBC 3.13 10x6/uL (4.20-6.10)
[2018-09-08 06:57] LABS: ANION GAP 17.6 mmol/L (8-16); CALCIUM 9.1 mg/dL (8.5-10.1); CARBON DIOXIDE 21.2 mmol/L (21.0-32.0); CREATININE - SERUM 2.7 mg/dL (0.6-1.3); POTASSIUM - SERUM 3.8 mmol/L (3.5-5.1); VANCOMYCIN - RANDOM 10.7 ug/mL (10.0-20.0)
[2018-09-08 07:30] LABS: PLATELET COUNT 195 10x3/uL (130-400); WBC 17.6 10x3/uL (4.8-10.8)
[2018-09-08 08:33] LABS: APTT 39.5 SECONDS (22.8-39.4); INR 1.43 (0.85-1.17); PROTIME 16.9 SECONDS (11.6-15.0)
--- NOTE | 2018-09-08 10:21 | NUR ---
PT RESTING IN BED. NO SIGNS OF DISTRESS. IV TO LEFT UPPER ARM PICC LINE PATENT NO REDNESS OR TENDERNESS. ON 2L NC. ON TELEMETRY 118 ST. HAS SUSANA DRAIN TO LEFT SIDE. HAS REDDENED AREA TO BUTTOCKS. DENIES ANY FUTHER NEED AT THIS TIME. CALL LIGHT IN REACH. BED LOW POSITION. NO FAMILY AT BEDSIDE.
--- NOTE | 2018-09-08 19:00 | NUR ---
REPORT RECEIVED. RECEIVED PATIENT IN BED. INTUBATED/ VENTILATED. SHIFT ASSESSMENT COMPLETED AT THIS TIME PER FLOW SHEET. MONITORS CONNECTED TO PATIENT WITH ALARMS SET. VSS. ETT INTACT/SECURE/PATENT [facility]ED TO [facility] AT ORDERED SETTINGS. HOB UP 30 DEGREES. VAP PROTOCOL OBSERVED. CONTACT ISOLATION PRECAUTIONS OBSERVED. PATIENT NON RESPONSIVE TO VERBAL/TACTILE OR PAINFUL STIMULI AT THIS TIME
--- NOTE | 2018-09-08 20:25 | NUR ---
SPOKE WITH DR. PATINO. NEW ORDERS RECEIVED
--- NOTE | 2018-09-08 21:00 | NUR ---
THIS RN AT BEDSIDE. PATIENT CONTINUES NON RESPONSIVE AT THIS TIME. ETT SECURED/PATENT/CONNECTED TO [facility] VENT WITH SETTING ORDERED. MONITORS CONNECTED TO PATIENT WITH ALARMS SET. VSS.
--- NOTE | 2018-09-08 23:08 | OP ---
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 PROCEDURES PERFORMED: Laparotomy with necrosectomy, extended right hemicolectomy, and placement of gastrojejunostomy tube. ANESTHESIA: General. COMPLICATIONS: None. SPECIMENS: Pancreas and right colon. ESTIMATED BLOOD LOSS: 1000 cc. WOUND CLASS: Grossly contaminated. The patient developed pancreatitis from a common bile duct obstruction. At that time, the patient had an ERCP with sphincterotomy and clearance of the duct as well as lap moris. His pancreatitis persisted. He developed multiple pancreatic fluid collections. He was treated with outpatient IV antibiotics. He returned several weeks ago. It appeared the peripancreatic fluid collections had become infected with pseudocyst. Percutaneous drains were placed. The patient did well until approximately one week ago, when he started to develop acute kidney injury with persistent leukocytosis and tachycardia. Repeat abscessogram today with the drain in place showed active communication with the colon. The patient was taken urgently for exploratory laparotomy. OPERATIVE COURSE: The patient was taken to the operating room and placed in the supine position on the operating table. Next, general anesthesia was given. Time-out was taken to confirm correct patient and procedure. Midline abdominal incision was made from the xiphoid process to the umbilicus. Subcutaneous tissue was dissected with electrocautery. The fascia was incised with electrocautery. The peritoneum was incised using Metzenbaum scissors. The remaining portion of peritoneum was then opened with electrocautery under direct vision. An Jerald wound retractor was placed. The abdomen was copiously irrigated and suctioned. The greater omentum was dissected off of the transverse colon and the lesser sac was entered, the transverse mesocolon from both the posterior stomach and the greater omentum. The descending colon was mobilized. The white line of Toldt was taken using electrocautery. Significant inflammation and induration existed in the left upper quadrant. By palpation, the drain was identified. The abscess cavity was entered. At this time, all necrotic tissue was scooped out of the abdomen and sent for pathology. This was the necrosectomy from the distal portion of the pancreatic tail. 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 OPERATIVE REPORT [id number] NILAY FORRESTER The remaining portion of the transverse colon was mobilized as well as the hepatic flexure. At this point, an extended right hemicolectomy was performed. Using a IDANIA 75-mm linear cutting stapler, the mesentery was taken with the Harmonic scalpel. The ascending colon, hepatic flexure, and transverse colon as well as splenic flexure were removed and sent for permanent pathology. At this time, the remaining portion of the duodenal sweep was mobilized. I continued with our necrosectomy. All necrotic portions of the pancreas were again scooped out of the abdomen and sent for pathology. The abdomen was irrigated with 5 liters of warm normal saline. Hemostasis was obtained with combination of sutures and Surgicel powder. There was tremendous bleeding along the splenic vein at the confluence with the superior mesenteric vein. This was controlled with 3-0 Prolene suture as well as Surgicel. The patient had tremendous amount of redundant sigmoid and descending colon, which was mobilized. Colocolonic anastomosis was performed in a [id number] fashion using the linear IDANIA stapler. Next, a gastrojejunostomy tube was placed through the skin incision in the left upper quadrant. An inner and outer pursestring sutures were placed into the anterior stomach wall and a gastrotomy was created. The gastrotomy was advanced through the pylorus and into the third portion of duodenum. The balloon was inflated. The pursestring sutures were tied. The anterior stomach was then secured to the anterior abdominal wall using 2-0 silk suture. The gastrostomy balloon was inflated. J-P drains were then placed into left and right lower quadrants. The drains were placed into the area of the pancreatic pseudocyst and necrosectomy. Again, the abdomen was copiously irrigated and suctioned. At this time, the fascia was closed with #1 looped PDS. Skin was closed with maribel. J-P drains were secured with 2-0 nylon suture. Gastrostomy tube was secured to 2-0 nylon suture. The patient was transported in critical condition to the ICU on the ventilator. At the end of the case, all needle and instrument counts were correct. No complications occurred. TRANSINT:[id number] Voice Confirmation ID: [id number] DOCUMENT ID: [id number] SAE LINDO MD at 2308 CC: [id number] DICTATION DATE: 09/08/181810 VACCINATOR: 09/08/18 192 ADM IN [place] [id number] [place] [address]
[2018-09-09] VITALS (97 sets, daily range): BP systolic 80–175; BP diastolic 48–98
--- NOTE | 2018-09-09 01:00 | NUR ---
ETT SECURED/ PATENT AND CONNECTED TO [facility] VENT WITH SETTINGS ORDERED. HOB UP 30 DEGREES. ORAL CARE GIVEN. PATIENT ROUSES EASILY TO VERBAL STIMULI AT THIS TIME
--- NOTE | 2018-09-09 02:30 | NUR ---
INTO PATIENTS ROOM. O2 SAT 80%. INCREASED FIO2 TO 100% WITH NO EFFECT. CALLED RT TO BEDSIDE. RT REMOVED MECH VENT AND BAGGED PATIENT. OZ SAT INCREASED SLOWLY. 0250 O2 SAT 98%
--- NOTE | 2018-09-09 03:00 | NUR ---
REASSESSMENT COMPLETED PER FLOW SHEET. VSS AT PRESENT. O2 SAT 98% WITH FIO2 @50% HOB UP 30 DEGREEES. MONITORS CONTINUE CONNECTED TO PATIENT WITH ALARMS SET.
[2018-09-09 03:21] LABS: ANION GAP 16.3 mmol/L (8-16); CALCIUM 8.2 mg/dL (8.5-10.1); CARBON DIOXIDE 21.1 mmol/L (21.0-32.0); CREATININE - SERUM 2.5 mg/dL (0.6-1.3); HEMATOCRIT 37.6 % (42.0-54.0); HEMOGLOBIN 13.2 g/dL (13.5-17.5); MAGNESIUM - SERUM 1.6 mg/dL (1.8-2.4); MCH 30.3 pg (26.0-34.0); MCHC 35.1 g/dL (31.0-37.0); MCV 86.2 fL (80.0-100.0); PHOSPHOROUS 5.9 mg/dL (2.5-4.9); PLATELET COUNT 170 10x3/uL (130-400); RBC 4.36 10x6/uL (4.20-6.10); RDW 16.5 % (11.5-14.5); VANCOMYCIN - RANDOM 14.9 ug/mL (10.0-20.0); WBC 35.5 10x3/uL (4.8-10.8)
[2018-09-09 03:36] LABS: POTASSIUM - SERUM 4.4 mmol/L (3.5-5.1)
--- NOTE | 2018-09-09 05:00 | NUR ---
VSS. NO ACUTE DISTRESS OBSERVED. ETT INTACT/SECURE/PATENT CONNECTED TO [facility] AT ORDERED SETTINGS .
[2018-09-09 05:21] LABS: LYMPHOCYTES 7 % (15-50); MONOCYTES 5 % (2-11); NEUTROPHILS 76 % (40-80); PLATELET ESTIMATE NORMAL
--- NOTE | 2018-09-09 07:00 | NUR ---
PT RESTING IN BED SEDATED ON VENTILATOR PER ORDERED SETTINGS. FENTANYL INFUSING AT 2MCG/KG/MIN. LEVOPHED AT 10MCG/KG/MIN. BP STABLE. HR TACHYCARDIC 120'S. BICARB INFUSING AT 5OML/HR. LR INFUSING AT 125ML/HR. O2 SAT 95%. DANIELLE ABDOMINAL MICHAEL DRAINS. GJ TUBE DRAINING BROWN FLUID. MID ABDOMENAL INCISION DRESSING CDI. MICHAEL DRAINS DRESSED CDI. LEFT ABDOMENAL INCISION DRESSED CDI. ART LINE TO LEFT RADIAL. LEFT PICC LINE FOR FLUIDS, FENTANYL, AND LEVOPHED. RIGHT IJ FOR CVP AND ART LINE. WILL CONTINUE TO MONITOR
--- NOTE | 2018-09-09 09:00 | NUR ---
PT SEDATED ON VENT. VSS. TITRATING LEVOPHED DRIP TOLERATED. WILL CONTINUE TO MONITOR
--- NOTE | 2018-09-09 09:48 | NUR ---
NUTRITION F/U PT NOW IN ICU ON VENT. S/P PROCEDURE. NO CURRENT NUTRITION SUPPORT AT THIS TIME. WILL CONTINUE TO MONITOR PT PROGRESS, ASSIST WITH NUTRITION SUPPORT IF NEEDED. RD FOLLOWING
--- NOTE | 2018-09-09 11:00 | NUR ---
VSS. WILL CONTINUE TO MONITOR
--- NOTE | 2018-09-09 15:00 | NUR ---
REASSESSMENT COMPLETE PER FLOW SHEET. VSS. NO NEW CHANGES ORAL CARE ADM WILL CONTINUE TO MONITOR
--- NOTE | 2018-09-09 19:00 | NUR ---
REPORT RECEIVED. RECEIVED PATIENT IN BED. SEDATED/INTUBATED. ETT INTACT/SECURE/PATENT CONNECTED TO [facility] VENT WITH SETTINGS ORDERED. HOB UP 30 DEGREES. VAP PROTOCOL OBSERVED. SHIFT ASSESSMENT COMPLETED PER FLOW SHEET WITH NO ACUTE DISTRESS OBSERVED. MONITORS CONNECTED TO PATIENT WITH ALARMS SET. VSS. CONTACT ISOLATION PRECAUTIONS OBSERVED.
--- NOTE | 2018-09-09 21:00 | NUR ---
RESTING WITH EYES CLOSED. ROUSES EASILY TO TOUCH. VSS
--- NOTE | 2018-09-09 23:00 | NUR ---
REASSESSMENT COMPLETED PER FLOW SHEET WITH CHANGES OR ACUTE DISTRESS OBSERVED. VSS. ORAL CARE PERFORMED. TURNED AND REPOSITIONED. HOB UP 30 DEGREES
[2018-09-10] VITALS (78 sets, daily range): BP systolic 91–173; BP diastolic 51–107
--- NOTE | 2018-09-10 01:00 | NUR ---
ROUSES EASILY. ORAL CARE PERFORMED. HOB UP 30 DEGREES. VSS
--- NOTE | 2018-09-10 03:00 | NUR ---
REASSESSMENT COMPLETED PER FLOW SHEET WITH NO CHANGES OR ACUTE DISTRESS OBSERVED. VSS.
[2018-09-10 04:45] LABS: ANION GAP 10.6 mmol/L (8-16); CALCIUM 7.9 mg/dL (8.5-10.1); CARBON DIOXIDE 26.1 mmol/L (21.0-32.0); CREATININE - SERUM 2.3 mg/dL (0.6-1.3); MAGNESIUM - SERUM 1.5 mg/dL (1.8-2.4); PHOSPHOROUS 4.6 mg/dL (2.5-4.9); VANCOMYCIN - RANDOM 19.3 ug/mL (10.0-20.0)
[2018-09-10 04:56] LABS: POTASSIUM - SERUM 3.7 mmol/L (3.5-5.1)
--- NOTE | 2018-09-10 05:00 | NUR ---
VSS. NO ACUTE DISTRESS OBSERVED
[2018-09-10 05:26] LABS: BASOPHILS 0.1 % (0-2); EOSINOPHILS 0 % (0-7); HEMATOCRIT 25.3 % (42.0-54.0); HEMOGLOBIN 8.6 g/dL (13.5-17.5); IMMATURE GRANULOCYTES 0.4 % (0-5); LYMPHOCYTES 4.2 % (15-50); MCH 28.9 pg (26.0-34.0); MCV 84.9 fL (80.0-100.0); MEAN PLATELET VOLUME 10.6 fL (7.4-10.4); MONOCYTES 12.2 % (2-11); NEUTROPHILS 83.1 % (40-80); PLATELET COUNT 85 10x3/uL (130-400); RBC 2.98 10x6/uL (4.20-6.10); RDW 16.6 % (11.5-14.5); WBC 13.9 10x3/uL (4.8-10.8)
[2018-09-10 05:55] LABS: PLATELET ESTIMATE DECREASED
--- NOTE | 2018-09-10 07:00 | NUR ---
REC'D REPORT, RESUMED CARE, ASSESSMENT COMPLETED PER FLOWSHEET,PRESSORS IN USE, VSS, OPENS EYES, DOES NOT TRACK OR FOLLOW COMMANDS, FENTANYL PUBLIC HEALTH ASSISTANT INFUSING AT 3 CC/HR = 150 MCG, REPOSITIONED TO RIGHT SIDE
--- NOTE | 2018-09-10 09:00 | NUR ---
MORNING MEDS GIVEN PER MAY FLOWSHEET
--- NOTE | 2018-09-10 09:46 | NUR ---
NUTRITION F/U TRICKLE TUBE FEEDS STARTED PER MD VERBAL ORDER. OSMOLITE 1.0 FAUZIA @ 20 CC/HR. 25 CC H2O FLUSH Q 4 HOURS. DISCUSSED WITH NURSING. RD FOLLOWING
--- NOTE | 2018-09-10 11:00 | NUR ---
NO ACUTE CHANGE FROM PREVIOUS ASSESSMENT VSS
--- NOTE | 2018-09-10 14:00 | NUR ---
TF OF OSMILITE INITTATED AT 20 CC/HR AND SET WITH 25 CC Q 4 HR FLUSHES
--- NOTE | 2018-09-10 14:47 | NUR ---
ABG AND BMP DRAWN PER ORDER
[2018-09-10 15:38] LABS: ANION GAP 11.9 mmol/L (8-16); CALCIUM 7.7 mg/dL (8.5-10.1); CARBON DIOXIDE 25.5 mmol/L (21.0-32.0); CREATININE - SERUM 2.2 mg/dL (0.6-1.3); POTASSIUM - SERUM 3.4 mmol/L (3.5-5.1)
--- NOTE | 2018-09-10 17:15 | NUR ---
INITIATED 1 UNIT PRBC, JESSS
--- NOTE | 2018-09-10 19:00 | NUR ---
PT IN BED IN LOW FOWLERS POSITION. PT ON VENT, SEDATED, RESTRAINTS INTACT. ORAL CARE PROVIDED. VITAL SIGNS STABLE AND AFEBRILE. WILL CONTINUE TO MONITOR.
--- NOTE | 2018-09-10 21:00 | NUR ---
HOB 30 DEGREES. NO VISUAL CUES OF DISTRESS NOTED. WILL CONTINUE TO MONITOR.
--- NOTE | 2018-09-10 23:00 | NUR ---
HOB 30 DEGREES. NO VISUAL CUES OF DISTRESS NOTED. WILL CONTINUE TO MONITOR.
[2018-09-11] VITALS (23 sets, daily range): BP systolic 109–174; BP diastolic 56–112
--- NOTE | 2018-09-11 01:00 | NUR ---
HOB 30 DEGREES. NO VISUAL CUES OF DISTRESS NOTED. WILL CONTINUE TO MONITOR.
--- NOTE | 2018-09-11 03:00 | NUR ---
HOB 30 DEGREES. NO VISUAL CUES OF DISTRESS NOTED. WILL CONTINUE TO MONITOR.
--- NOTE | 2018-09-11 05:00 | NUR ---
HOB 30 DEGREES. NO VISUAL CUES OF DISTRESS NOTED. WILL CONTINUE TO MONITOR.
[2018-09-11 05:38] LABS: BASOPHILS 0.1 % (0-2); EOSINOPHILS 0 % (0-7); HEMATOCRIT 25.6 % (42.0-54.0); HEMOGLOBIN 8.7 g/dL (13.5-17.5); IMMATURE GRANULOCYTES 0.3 % (0-5); LYMPHOCYTES 2.4 % (15-50); MCH 29.1 pg (26.0-34.0); MCV 85.6 fL (80.0-100.0); MEAN PLATELET VOLUME 10.9 fL (7.4-10.4); MONOCYTES 8.1 % (2-11); NEUTROPHILS 89.1 % (40-80); PLATELET COUNT 81 10x3/uL (130-400); RBC 2.99 10x6/uL (4.20-6.10); RDW 16.4 % (11.5-14.5); WBC 11.6 10x3/uL (4.8-10.8)
--- NOTE | 2018-09-11 06:06 | NUR ---
HOB 30 DEGREES. NO VISUAL CUES OF DISTRESS NOTED. WILL CONTINUE TO MONITOR.
[2018-09-11 06:40] LABS: ANION GAP 11.2 mmol/L (8-16); CALCIUM 7.9 mg/dL (8.5-10.1); CARBON DIOXIDE 25.3 mmol/L (21.0-32.0); CREATININE - SERUM 2.1 mg/dL (0.6-1.3); POTASSIUM - SERUM 3.5 mmol/L (3.5-5.1)
--- NOTE | 2018-09-11 07:29 | NUR ---
REPORT RECEIVED. PT ON VENT. 3 DRAINS. PEREZ. RIGHT IJ. LEFT PICC. HEAD TO TOE ASSESSMENT COMPLETED. VSS. ON CONTACT PRECAUTIONS. WILL CONTINUE TO MONITOR.
--- NOTE | 2018-09-11 09:09 | NUR ---
PROPOFOL TURNED OFF AND FENTANYL TURNED TO 50 MCG/HR FOR CPAP TRIALS PER DR PATINO AND RT. WILL MONITOR.
--- NOTE | 2018-09-11 10:00 | NUR ---
CPAP TRIAL STOPPED D/T PT'S HR ELEVATING. SETTINGS PER RT. WILL CONTINUE TO MONITOR PT.
--- NOTE | 2018-09-11 11:14 | NUR ---
HR OF PT SLOWLY STARTING TO COME DOWN. REASSESSMENT COMPLETED. MONITORS WORKING. BP IS SLOWLY LOWERING, WELL. NOW AT 148/88. PT REPOSITIONED. BED IN LOWEST POSITION. CALL LIGHT IN REACH.
--- NOTE | 2018-09-11 13:10 | NUR ---
TUBE FEED BAG CHANGED OUT. FEED RATE 30/HR WITH FLUSH OF 50/HR. DR ANNA ROUNDTED ON PT. NO NEW ORDERS AT THIS TIME. WILL CONTINUE TO MONITOR.
--- NOTE | 2018-09-11 15:15 | NUR ---
GAVE PT CHG BATH. LINENS CHANGED. PT TOLERATED WELL. VSS. FEEDING RESUMED. REASSESSMENT COMPLETED. WILL CONTINUE TO MONITOR.
--- NOTE | 2018-09-11 17:30 | NUR ---
DRAINS EMPTIED. VSS. CVP DOWN TO 8. BP AND HR HAVE DECREASED DOWN TO WHAT THEY WERE THIS AM PRIOR TO CPAP TRIALS. PT RESTING QUIETLY. REPOSITIONED AND SUCTIONED. URINE OUTPUT WAS 1700 TODAY. WILL CONTINUE TO MONITOR.
--- NOTE | 2018-09-11 19:00 | NUR ---
SHIFT ASSESSMENT COMPLETED. VSS. WILL MONITOR.
[2018-09-11 20:46] LABS: ALBUMIN 2.2 g/dL (3.4-5.0); ANION GAP 11.6 mmol/L (8-16); BILIRUBIN - TOTAL 0.75 mg/dL (0.2-1.3); CALCIUM 8.3 mg/dL (8.5-10.1); CARBON DIOXIDE 27.8 mmol/L (21.0-32.0); CREATININE - SERUM 2.1 mg/dL (0.6-1.3); MAGNESIUM - SERUM 1.6 mg/dL (1.8-2.4); POTASSIUM - SERUM 3.4 mmol/L (3.5-5.1); PROTEIN - SERUM 5.8 g/dL (6.4-8.2)
--- NOTE | 2018-09-11 21:00 | NUR ---
1900 REPORT RECEIVED CARE ASSUMED ASSESSMENT DONE SEE FLOW SHEET VSS NO SIGN OF ACUTE DISTRESS WILL CONTINUE TO MONITOR. INCREASE IN HR NOTED. 2100 MEDS GIVEN PER MAR VSS WILL CONITNUE TO MONITOR.
--- NOTE | 2018-09-11 21:00 | NUR ---
NO VISUAL CUES OF DISTRESS NOTED. VSS. WILL MONITOR.
[2018-09-12] VITALS (21 sets, daily range): BP systolic 110–176; BP diastolic 55–109
--- NOTE | 2018-09-12 01:00 | NUR ---
2300 REASSESSMENT DONE. SEE FLOWSHEET. VSS. 0100- REINFORCED DRESSING. CHANGED CENTRAL LINE DRESSING. VSS.
--- NOTE | 2018-09-12 03:00 | NUR ---
REASSESSMENT COMPLETE. VSS.
[2018-09-12 04:33] LABS: VANCOMYCIN - RANDOM 17.7 ug/mL (10.0-20.0)
--- NOTE | 2018-09-12 05:44 | NUR ---
VSS. WILL CONTINUE TO MONITOR.
[2018-09-12 08:42] LABS: BASOPHILS 0 % (0-2); EOSINOPHILS 0.1 % (0-7); HEMATOCRIT 24.9 % (42.0-54.0); HEMOGLOBIN 8.2 g/dL (13.5-17.5); IMMATURE GRANULOCYTES 0.9 % (0-5); LYMPHOCYTES 3.7 % (15-50); MCH 28.7 pg (26.0-34.0); MCHC 32.9 g/dL (31.0-37.0); MCV 87.1 fL (80.0-100.0); MEAN PLATELET VOLUME 11.1 fL (7.4-10.4); MONOCYTES 8.6 % (2-11); NEUTROPHILS 86.7 % (40-80); PLATELET COUNT 82 10x3/uL (130-400); RBC 2.86 10x6/uL (4.20-6.10); RDW 16.3 % (11.5-14.5); WBC 9.2 10x3/uL (4.8-10.8)
[2018-09-12 08:54] LABS: ANION GAP 10.5 mmol/L (8-16); CALCIUM 8.1 mg/dL (8.5-10.1); CARBON DIOXIDE 28.6 mmol/L (21.0-32.0); CREATININE - SERUM 2.1 mg/dL (0.6-1.3); POTASSIUM - SERUM 3.1 mmol/L (3.5-5.1)
[2018-09-12 09:16] LABS: PLATELET ESTIMATE DECREASED
[2018-09-12 09:19] LABS: ANISOCYTOSIS OCC
--- NOTE | 2018-09-12 09:21 | NUR ---
Nutrition follow-up: Pt remains intubated; failed weaning trials Osmolite now infusing @ 50 ml/hr; goal rate is 75 ml/hr Wt: 227# IVF: LR @ 50 ml/hr Labs reviewed RDN following.
--- NOTE | 2018-09-12 19:00 | NUR ---
SHIFT ASSESSMENT COMPLETE. NO VISUAL CUES OF DISTRESS NOTED. VSS.
--- NOTE | 2018-09-12 21:00 | NUR ---
VSS STABLE. NO VISUAL CUES OF DISTRESS NOTED. WILL MONITOR.
--- NOTE | 2018-09-12 21:16 | NUR ---
PT AGGITATION NOTED. TITRATING DIPRIVAN TO AFFECT SEE FLOW SHEET.
--- NOTE | 2018-09-12 23:00 | NUR ---
REASSESSMENT COMPLETE. NO CHANGES NOTED.
[2018-09-13] VITALS (23 sets, daily range): BP systolic 102–175; BP diastolic 52–106; Ht 177.8 cm; Wt 93.6 kg
--- NOTE | 2018-09-13 01:00 | NUR ---
NO VISUAL CUES DISTRESS NOTED. VSS STABLE. WILL CONTINUE TO MONITOR.
[2018-09-13 05:22] LABS: BASOPHILS 0.2 % (0-2); EOSINOPHILS 0 % (0-7); HEMATOCRIT 27.5 % (42.0-54.0); HEMOGLOBIN 9.3 g/dL (13.5-17.5); IMMATURE GRANULOCYTES 1.9 % (0-5); MCH 29.6 pg (26.0-34.0); MCHC 33.8 g/dL (31.0-37.0); MCV 87.6 fL (80.0-100.0); MEAN PLATELET VOLUME 10.3 fL (7.4-10.4); MONOCYTES 9.4 % (2-11); NEUTROPHILS 85.5 % (40-80); PLATELET COUNT 84 10x3/uL (130-400); RBC 3.14 10x6/uL (4.20-6.10); RDW 16.5 % (11.5-14.5)
[2018-09-13 05:36] LABS: ANION GAP 13.9 mmol/L (8-16); CALCIUM 8.4 mg/dL (8.5-10.1); CARBON DIOXIDE 27.7 mmol/L (21.0-32.0); CREATININE - SERUM 2.2 mg/dL (0.6-1.3); VANCOMYCIN - RANDOM 21.3 ug/mL (10.0-20.0)
[2018-09-13 05:37] LABS: POTASSIUM - SERUM 3.6 mmol/L (3.5-5.1)
--- NOTE | 2018-09-13 07:53 | NUR ---
ORAL CARE DONE
--- NOTE | 2018-09-13 19:00 | NUR ---
PT IN BED IN LOW FOWLERS POSITION. NO VISUAL CUES OF DISTRESS NOTE. VSS. WILL MONITOR,
--- NOTE | 2018-09-13 21:00 | NUR ---
PT IN BED IN LOW FOWLERS POSITION. NO VISUAL CUES OF DISTRESS NOTE. VSS. WILL MONITOR,
--- NOTE | 2018-09-13 23:00 | NUR ---
PT IN BED IN LOW FOWLERS POSITION. NO VISUAL CUES OF DISTRESS NOTE. VSS. WILL MONITOR,
[2018-09-14] VITALS (25 sets, daily range): BP systolic 82–186; BP diastolic 45–90
--- NOTE | 2018-09-14 01:00 | NUR ---
PT IN BED IN LOW FOWLERS POSITION. NO VISUAL CUES OF DISTRESS NOTE. VSS. WILL MONITOR,
[2018-09-14 05:06] LABS: BASOPHILS 0 % (0-2); EOSINOPHILS 0 % (0-7); HEMOGLOBIN 9.2 g/dL (13.5-17.5); IMMATURE GRANULOCYTES 2.9 % (0-5); LYMPHOCYTES 5.8 % (15-50); MCH 29.1 pg (26.0-34.0); MCHC 33.3 g/dL (31.0-37.0); MCV 87.3 fL (80.0-100.0); MEAN PLATELET VOLUME 10.9 fL (7.4-10.4); MONOCYTES 7.2 % (2-11); NEUTROPHILS 84.1 % (40-80); PLATELET COUNT 91 10x3/uL (130-400); RBC 3.16 10x6/uL (4.20-6.10); RDW 16.2 % (11.5-14.5)
[2018-09-14 05:07] LABS: HEMATOCRIT 27.6 % (42.0-54.0); WBC 7.2 10x3/uL (4.8-10.8)
[2018-09-14 05:18] LABS: PLATELET ESTIMATE DECREASED
[2018-09-14 05:27] LABS: ANION GAP 14.3 mmol/L (8-16); CALCIUM 8.2 mg/dL (8.5-10.1); CARBON DIOXIDE 29.5 mmol/L (21.0-32.0); CREATININE - SERUM 2.2 mg/dL (0.6-1.3); VANCOMYCIN - RANDOM 16.4 ug/mL (10.0-20.0)
[2018-09-14 05:33] LABS: POTASSIUM - SERUM 2.8 mmol/L (3.5-5.1)
--- NOTE | 2018-09-14 09:07 | NUR ---
Nutrition note: TF formula changed to osmolite 1.5 lukas @ 50 ml/hr due to Osmolite 1.0 lukas out of stock at this time. RDN following.
--- NOTE | 2018-09-14 11:00 | NUR ---
NO CHANGES NOTED
--- NOTE | 2018-09-14 15:00 | NUR ---
NO CHANGE NOTED
--- NOTE | 2018-09-14 19:20 | NUR ---
Received patient sedated on vent with eyes closed, assessment completed per flowsheet. ETT 8.0 @ 26 cm secured. S1/S2 noted NSR on telemetry with HR 81, rythmic and regular. Vent settings SIMV R-12 V-600 40% P-5 PS-10 with O2 sat 92%, lung sounds clear RUL with diminished RML/RLL/LUCAS/LLL. Abdomen is round with bowel sounds active x4, tender. MICHAEL x2 with small bloody drainage, compressed with dressing CDI. L abdomen incision open to air, Midline incision dressing intact. Herman secured, concentrated yellow urine. All pulses palpable with cap refill < 3 sec, skin warm/dry. Fentanyl STAFF DEVELOPMENT COORDINATOR RN in use for pain mgmt, oral care/suctioning provided. Repositioned for comfort, see flowsheet for details. All VSS and will continue to monitor.
[2018-09-14 22:58] LABS: POTASSIUM - SERUM 2.7 mmol/L (3.5-5.1)
--- NOTE | 2018-09-14 23:10 | NUR ---
Reassessment completed per flowsheet, no changes noted from previous assessment. ETT secured. S1/S2 noted NSR with PVC on telemtry with HR 87, rythmic and regular. Vent settings unchanged from previous with o2 sat 96%, lung sounds clear bilateral upper with diminished mid and lower. Abdomen incision dressing secured, MICHAEL x2 with purulent drainage noted. All pulses palpable with cap refill < 3 sec, skin warm/dry. Epidural in use for pain mgmt, oral care provided/repositioned for comfort. No further needs, all VSS and will continue to monitor.
[2018-09-15] VITALS (25 sets, daily range): BP systolic 90–156; BP diastolic 45–67
--- NOTE | 2018-09-15 00:15 | NUR ---
Patient L lower abdomen MICHAEL with increased output, purulent coffee colored drainage noted. 400ml emptied from drain, will continue to monitor.
--- NOTE | 2018-09-15 00:30 | NUR ---
TF held, MICHAEL drain output decreased with serous/slight pink drainage noted. Output to G-tube bag remains constant, will continue to monitor.
[2018-09-15 01:06] LABS: MAGNESIUM - SERUM 1.6 mg/dL (1.8-2.4)
--- NOTE | 2018-09-15 03:10 | NUR ---
Reassessment completed per flowsheet, no changes noted from previous assessment. ETT secured. S1/S2 noted Sinus Tach on telemetry with HR 102, rythmic and regular. Vent settings unchanged from previous with O2 sat 98%, lung sounds clear bilateral upper with diminished mid and lower. Abdomen incision dressing CDI, MICHAEL drain x2 with serous drainage noted. G-tube drainage yellow/brown, dressing CDI. All pulses palpable with cap refill < 3 sec, skin warm/dry. Oral care/suctioning provided, repositioned for comfort. No further needs at this time, see flowsheet for details. All VSS and will continue to monitor.
--- NOTE | 2018-09-15 05:10 | NUR ---
Patient sedated in bed on vent with eyes closed, air overlay mattress placed with patient tolerating well. Electrolyte replacement per protocol, oral care/suctioning provided. Repositioned for comfort, no further needs at this time and will continue to monitor.
[2018-09-15 05:14] LABS: HEMATOCRIT 33.3 % (42.0-54.0); HEMOGLOBIN 11.2 g/dL (13.5-17.5); MCH 29.5 pg (26.0-34.0); MCHC 33.6 g/dL (31.0-37.0); MCV 87.6 fL (80.0-100.0); MEAN PLATELET VOLUME 11.4 fL (7.4-10.4); PLATELET COUNT 101 10x3/uL (130-400); RDW 16.4 % (11.5-14.5); WBC 38.2 10x3/uL (4.8-10.8)
[2018-09-15 05:23] LABS: ANION GAP 14.1 mmol/L (8-16); CALCIUM 8.2 mg/dL (8.5-10.1); CARBON DIOXIDE 29.3 mmol/L (21.0-32.0); CREATININE - SERUM 2.4 mg/dL (0.6-1.3); VANCOMYCIN - RANDOM 22.6 ug/mL (10.0-20.0)
[2018-09-15 05:25] LABS: POTASSIUM - SERUM 3.4 mmol/L (3.5-5.1)
[2018-09-15 06:01] LABS: LYMPHOCYTES 1 % (15-50); MONOCYTES 5 % (2-11); NEUTROPHILS 84 % (40-80); PLATELET ESTIMATE DECREASED
--- NOTE | 2018-09-15 07:00 | NUR ---
REPORT RECEIVED. ASSESSMENT COMPLETE PER FLOW SHEET. VSS. NO NEW CHANGES WILL CONTINUE TO MONITOR
--- NOTE | 2018-09-15 08:15 | NUR ---
RADIOLOGY AT BEDSIDE GIVEN UPDATE
--- NOTE | 2018-09-15 09:02 | NUR ---
NUTRITION F/U PT REMAINS SEDATED ON VENT. TUBE FEEDS OFF. FOR CT THIS AM. WILL CONTINUE TO MONITOR PT PROGRESS. RD FOLLOWING
--- NOTE | 2018-09-15 10:30 | NUR ---
ALL SEDATION TITRATED TO OFF PER PROTOCOL DR PATINO AT BEDSIDE GIVEN UDPATE. PT TO CPAP TRIAL AT THIS TIME
--- NOTE | 2018-09-15 11:15 | NUR ---
REASSESSMENT COMPLETE PER FLOW SHEET. VSS. NO NEW CHANGES WILL CONTINUE TO MONITOR
--- NOTE | 2018-09-15 12:40 | NUR ---
COMPLETE BB LINEN CHANGE ADM. LARGE LIQUID BM NOTED
--- NOTE | 2018-09-15 13:20 | NUR ---
DR MORA AT BEDSIDE GIVEN UPDATE.
--- NOTE | 2018-09-15 15:14 | NUR ---
REASSESSMENT COMPLETE PER FLOW SHEET. VSS. NO NEW CHANGES PT RESTING COMFOTABLY WILL CONTNIUE TO MONITOR
--- NOTE | 2018-09-15 16:10 | NUR ---
PT EXTUBATED WITHOUT DIFFICULTY. VSS FAMILY CALLED GIVEN UPDATE
--- NOTE | 2018-09-15 16:16 | NUR ---
EXTABATED TO 4L NASAL CANNULA SPO2 98%
--- NOTE | 2018-09-15 17:50 | NUR ---
PARTIAL BB LINEN CHANGE ADM. LARGE BM NOTED
--- NOTE | 2018-09-15 19:15 | NUR ---
Received patient resting in bed with eyes closed, assessment completed per flowsheet. Patient disoriented to time/place/situation, weakly follows commands. S1/S2 noted Sinus Tach and occasional PVC on telemetry with HR 112. Breathing is shallow/unlabored on 4L via NC with O2 sat 95%, crackles noted bilateral upper and mid with diminished lower. Abdomen is round with bowel sounds active x4. Midline abdomen incision dressing CDI, L abdomen incision with maribel intact. MICHAEL x2 with small serous drainage, compressed with dressing CDI. G-tube to gravity, yellow/brown drainage noted. All pulses palpable with cap refill < 3 sec, skin warm/dry. Oral care provided, repositioned for comfort. No further needs at this time, see flowsheet for details. All VSS and will continue to monitor.
--- NOTE | 2018-09-15 21:10 | NUR ---
Patient sleeping in bed with eyes closed, no s/s of distress at this time. Spoke to Dr Bob via phone with new orders received, BiPAP QHS/PRN with settings 03/05 @ 40%. Informed RT of new orders, and will be placed on BiPAP by RT. Liquid Brown BM noted, cleaned and linen changed. No further needs at this time, all VSS and will continue to monitor.
--- NOTE | 2018-09-15 23:15 | NUR ---
Reassessment completed per flowsheet, no changes noted from previous assessment. S1/S2 noted Sinus Tach and rare PVC on telemetry with HR 106. Breathing is shallow on BiPAP 40% with O2 sat 98%, crackles noted bilateral upper and mid with diminished lower. MICHAEL x2 with small serous drainage, G-Tube to gravity clamped per orders. All pulses palpable with cap refill < 3 sec, skin warm/dry. Oral care provided, repositioned for comfort. No further needs at this time, see flowsheet for details. All VSS and will continue to monitor.
[2018-09-16] VITALS (24 sets, daily range): BP systolic 131–160; BP diastolic 50–87
--- NOTE | 2018-09-16 01:10 | NUR ---
Patient sleeping in bed with eyes closed on BiPAP 40%, no s/s of distress at this time. Oral care provided/reopositioned for comfort, no further needs and will continue to monitor.
--- NOTE | 2018-09-16 03:05 | NUR ---
Reassessment completed per flowsheet, no changes noted from previous assessment. S1/S2 noted Sinus Tach on telemetry with HR 109. Breathing is shallow on BiPAP 40% with O2 sat 98%, crackles noted bilateral upper and mid with diminished lower. MICHAEL x2 with brown drainage noted, G-Tube to gravity clamped. All pulses palpable with cap refill < 3 sec, skin warm/dry. Oral care provided, repositioned for comfort. No further needs at this time, see flowsheet for details. All VSS and will continue to monitor.
[2018-09-16 05:10] LABS: BASOPHILS 0.1 % (0-2); EOSINOPHILS 0.2 % (0-7); HEMATOCRIT 27.9 % (42.0-54.0); HEMOGLOBIN 9.2 g/dL (13.5-17.5); IMMATURE GRANULOCYTES 1.6 % (0-5); LYMPHOCYTES 2.3 % (15-50); MCH 29.2 pg (26.0-34.0); MCV 88.6 fL (80.0-100.0); MEAN PLATELET VOLUME 11.3 fL (7.4-10.4); MONOCYTES 6.2 % (2-11); NEUTROPHILS 89.6 % (40-80); RBC 3.15 10x6/uL (4.20-6.10); RDW 16.8 % (11.5-14.5)
[2018-09-16 05:18] LABS: PLATELET COUNT 79 10x3/uL (130-400); WBC 16.9 10x3/uL (4.8-10.8)
[2018-09-16 05:31] LABS: CALCIUM 8.4 mg/dL (8.5-10.1); CARBON DIOXIDE 30.6 mmol/L (21.0-32.0); CREATININE - SERUM 2.5 mg/dL (0.6-1.3); VANCOMYCIN - RANDOM 16.8 ug/mL (10.0-20.0)
[2018-09-16 05:38] LABS: POTASSIUM - SERUM 2.6 mmol/L (3.5-5.1)
--- NOTE | 2018-09-16 07:04 | NUR ---
REPORT RECEIVED. ASSESSMENT COMPLETE PER FLOW SHEET. VSS. PT RESTING COMFORTABLY WILL CONTINUE TO MONITOR
--- NOTE | 2018-09-16 09:14 | NUR ---
NUTRITION F/U CHART REVIEWED, PT EXTUBATED. REMAINS IN ISOLATION. OSMOLITE 1.5 FAUZIA TUBE FEEDS RESUMED AT GOAL RATE 50 CC/HR. WILL CONTINUE TO MONITOR PT PROGRESS. RD FOLLOWING
--- NOTE | 2018-09-16 09:40 | NUR ---
DR MORA AT BEDSIDE GIVEN UDPATE
--- NOTE | 2018-09-16 09:50 | NUR ---
AT BEDSIDE GIVEN UPDATE
--- NOTE | 2018-09-16 10:21 | NUR ---
PT AT BEDSIDE GIVEN UDPATE
--- NOTE | 2018-09-16 11:15 | NUR ---
REASSESSMENT COMPLETE PER FLOW SHEET. VSS. NO NEW CHANGES WILL CONTINUE TO MONITOR
--- NOTE | 2018-09-16 13:20 | NUR ---
COMPLETE BB LINEN CHANGE ADM. CHG BATH ADM WILL CONTINUE TO MONITOR
--- NOTE | 2018-09-16 15:15 | NUR ---
REASSESSMENT COMPLETE PER FLOW SHEET VSS NO NEW CHANGES
--- NOTE | 2018-09-16 16:30 | NUR ---
FAMILY CALLED GIVEN DASHA
--- NOTE | 2018-09-16 17:40 | NUR ---
SON AKIN CALLED GIVEN UPDATE. NO NEW JONATANNES PT RESTING COMFORTALBY WILL CONTINUE TO MONITOR
--- NOTE | 2018-09-16 19:25 | NUR ---
Received patient resting in bed with eyes closed, assessment completed per flowsheet. S1/S2 noted Sius Tach on telemetry with HR 103, rythmic and regular. Breathing is shallow on 4L via NC with O2 sat 96%, crackles noted bilateral upper and mid with diminished lower. Abdomen is round/soft with bowel sounds active x4. Midline incision with maribel intact, open to air and well approximated. Bilateral abdominal incision dressing CDI, MICHAEL x1 with brown drainage. Herman secured, concentrated juanito urine noted. All pulses palpable with cap refill < 3 sec, skin warm/dry. Oral care provided, repositioned for comfort. No further needs at this time, see flowsheet for details. All VSS and will continue to monitor.
--- NOTE | 2018-09-16 21:00 | NUR ---
HS meds given as ordered, repositioned for comfort. Oral care provided, no further needs and will continue to monitor.
--- NOTE | 2018-09-16 23:10 | NUR ---
Reassessment completed per flowsheet, no changes noted from previous assessment. S1/S2 noted Sinus Tach on telemetry with HR 102, rythmic and regular. Breathing is shallow on 4L via NC with O2 sat 97%, crackles noted bilateral upper and mid with diminished lower. Midline abdomen incision maribel intact, open to air. MICHAEL x1 with small brown drainage, compressed. All pulses palpable with cap refill < 3 sec, skin warm/dry. Oral care provided, repositioned for comfort. See flowsheet for details, all VSS and will continue to monitor.
[2018-09-17] VITALS (24 sets, daily range): BP systolic 134–157; BP diastolic 78–96
--- NOTE | 2018-09-17 01:00 | NUR ---
Patient resting in bed with eyes closed, no s/s of distress at this time. Oral care/suctioning provided, thick white secretions noted. No further needs at this time, all VSS and will continue to monitor.
--- NOTE | 2018-09-17 03:10 | NUR ---
Reassessment completed per flowsheet, no changes noted from previous assessment. S1/S2 noted Sinus Tach on telemetry with HR 103, rythmic and regular. Breathing is shallow on 4L NC with O2 sat 97%, crackles noted bilateral upper and mid with diminished lower. Abdominal incision with maribel intact, open to air. MICHAEL x1 with brown/mucoid drainage, compressed with dressing CDI. G-tube to drainage, clamped. All pulses palpable with cap refill < 3 sec, skin warm/dry. Denies pain or other needs at this time, see flowsheet for details. All VSS and will continue to monitor.
--- NOTE | 2018-09-17 05:00 | NUR ---
Patient resting in bed with eyes closed, no s/s of distress at this time. All VSS and will continue to monitor.
[2018-09-17 05:09] LABS: BASOPHILS 0 % (0-2); EOSINOPHILS 0.2 % (0-7); HEMATOCRIT 26.8 % (42.0-54.0); HEMOGLOBIN 8.6 g/dL (13.5-17.5); IMMATURE GRANULOCYTES 1.6 % (0-5); MCH 28.7 pg (26.0-34.0); MCHC 32.1 g/dL (31.0-37.0); MCV 89.3 fL (80.0-100.0); MEAN PLATELET VOLUME 11.3 fL (7.4-10.4); MONOCYTES 5.8 % (2-11); NEUTROPHILS 89.4 % (40-80); PLATELET COUNT 72 10x3/uL (130-400); RDW 16.9 % (11.5-14.5)
[2018-09-17 05:21] LABS: WBC 10.8 10x3/uL (4.8-10.8)
[2018-09-17 05:39] LABS: ANION GAP 11.5 mmol/L (8-16); CALCIUM 8.4 mg/dL (8.5-10.1); CARBON DIOXIDE 32.7 mmol/L (21.0-32.0); CREATININE - SERUM 2.1 mg/dL (0.6-1.3); VANCOMYCIN - RANDOM 21.9 ug/mL (10.0-20.0)
[2018-09-17 05:47] LABS: POTASSIUM - SERUM 3.2 mmol/L (3.5-5.1)
[2018-09-17 05:57] LABS: PLATELET ESTIMATE DECREASED
--- NOTE | 2018-09-17 07:15 | NUR ---
REPORT RECEIVED. ASSESSMENT COMPLETE PER FLOW SHEET. VSS. NO NEW CHANGES COMPLETE BB LINEN CHANGEA ADM. LARGE LOOSE BM NOTED
--- NOTE | 2018-09-17 09:00 | NUR ---
DR MORA AT BEDSIDE GIVEN UDPATE.
--- NOTE | 2018-09-17 09:32 | NUR ---
NUTRITION F/U CHART REVIEWED. NURSING REPORTS PT TOLERATING TUBE FEEDS AT GOAL RATE 50 CC/HR. REMAINS OFF VENT. RD FOLLOWING
--- NOTE | 2018-09-17 11:00 | NUR ---
REASSESSMENT COMPLETE PER FLOW SHEET. VSS NO NEW CHANGES WILL CONTINUE TO MONITOR
[2018-09-17 12:30] LABS: INR 1.24 (0.85-1.17); PROTIME 15.1 SECONDS (11.6-15.0)
--- NOTE | 2018-09-17 13:10 | NUR ---
[facility] AT BEDSIDE GIVEN UPDATE. FAMILY CALLED GIVEN UPDATE
--- NOTE | 2018-09-17 15:00 | NUR ---
REASSESSMENT COMPLETE PER FLOW SHEET VSS NO NEW CHANGES IWLL CONTINUE TO MONITOR
--- NOTE | 2018-09-17 15:50 | MORECARE ---
CASE MANAGEMENT DISCHARGE SUMMARY PATIENT: NILAY FORRESTER UNIT: [id number] ADM DATE: 08/08/18 AGE: 83 : 36 SEX: M ROOM/BED: D.2306 AUTHOR: BELIADOC PHYSICIAN: REFERRING PHYSICIAN: HERBERTH WILSON MD DATE OF SERVICE: 09/17/18 Discharge Plan Patient Name: NILAY FORRESTER Facility: [facility]:[place] : 1935 Planned Disposition: Assisted Living Anticipated Discharge Date: 08/11/18 Discharge Date: Expected LOS: 3 Initial Reviewer: [email or web address] Initial Review Date: 08/08/2018 Generated: 09/17/18 4:49 pm DCP- Discharge Planning Updated by [id number]: Adelaida Aj on 08/31/18 2:[address] TELEPHONE MESSAGE TO ACUTE LEAD IOS DEVELOPER REGARDING ACUTE REHAB STATUS. SURGERY STATING REHAB PLACEMENT SOON. DCP- Discharge Planning Updated by [id number]: Lita Limon on 08/29/18 1:[address] Patient will not be discharging to inpatient rehab today due to him needing a repeat ct scan that is ordered for Saturday. DCP- Discharge Planning Updated by [id number]: Lita Limon on 08/29/18 11:[address] IMM SERVED AND EXPLAINED. ANTICIPATE DC TO INPATIENT REHAB LATER THIS AFTERNOON DCP- Discharge Planning Updated by [email or web address]: Adelaiad Aj on 08/10/18 4:[address] CM RECEIVED AN ORDER FOR DISCHARGE PLANNING. THIS PATIENT WAS SEEN IN THE ER FOR DISCHARGE PLANNING. HE LIVES AT [facility] WITH HIS ON THE 3RD FLOOR. HAS [facility] AND [facility]IST[facility].PLANS FOR RESUMPTION OF CARE AT DISCHARGE.PCP- DR PINEDO. PHARMACY - [facility]. WILL HAVE TRANSPORTATION TO HOME. HE IS SITTINGUP AT A 90 DEGREES IN BED. STATES HE IS VERY, VERY NAUSEOUS. CM WILL FOLLOW TO ASSIST IS APPROPRIATE. DCP- Discharge Planning Updated by [email or web address]: Selena Mccartney on 08/08/18 2:[address] Patient Name: NILAY FORRESTER Admission Status: ER Accout number: [id number] Admission Date: 08-08-2018 : 6 Admission Diagnosis: Attending: HERBERTH WILSON Current LOS: 1 Anticipated DC Date: 08-11-2018 Planned Disposition: Assisted Living Primary Insurance: MEDICARE A & B Discharge Planning Comments: CM met with patient to complete initial dc planning assessment. CM educated patient on the CM role and verbal consent given by patient to complete assessment. CM verified patient's address, phone number, and emergency contact phone numbers. Patient lives at [facility] with his . Patient currently has [facility] and wishes to resume at discharge. MARY form signed by patient for resumption of [facility]. Signed form placed in chart and signed form given to patient. At discharge patient plans to return [facility] and feels this is a safe discharge. Patient denied further known discharge needs at this time. . Patient reports [facility] will transport him home at time of discharge.CM will continue to follow and will assist as needed with dc plans/needs. House Wirer Helper: Selena Mccartney RN, [facility] DCPIA - Discharge Planning Initial Assessment Updated by [email or web address]: Selena Mccartney on 08/08/18 3:19 pm * Is the patient Alert and Oriented? Yes * How many steps to enter\exit or inside your home? None * PCP Dr. Pinedo * [facility]. * Preadmission Environment Assisted Living * Facility Name [facility] * ADLs Partial Dependent * Partial ADLs (Assistance needed) Ambulation Medication Management * Equipment Rolling Walker Wheelchair * List name and contact numbers for known caregivers / representatives who currently or will assist patient after discharge: Ade Diggs - [phone] Berny [place] Dontae son - [phone] * Please name any agencies selected above. [facility] ER for resumption at time of discharge. * Additional services required to return to the preadmission environment? No * Can the patient safely return to the preadmission environment? Yes * Has this patient been hospitalized within the prior 30 days at any hospital? Yes External Providers External Provider: Sis Souza Cullen Next Contact Date: Service Request Date: Service Type: Resolution: Reviewer: Comments: Coverage Notice Reviewer: [id number] - Lita Limon Notice Issued Date-Time: 08/29/2018 12:20 Notice Type: IM Discharge Notice Notice Delivered To: Patient Relationship to Patient: Chemistry Associate Name: Delivery Method: HAND - Hand Delivered Kelly Days: Prior Verbal Notification: Recipient Understood Notice: Yes Recipient Signature: Yes Med Rec Note Co-signed by Attending: Coverage Notice Comment: Last DP export: 08/31/18 2:42 pm Patient Name: NILAY FORRESTER Page [id number] at 1550 All edits/amendments must be made on the electronic document DICTATION DATE: 09/17/181548 MEAL TEMPERER: DEMIAN 09/17/181548 RPT#: [id number] DC DATE: STATUS: ADM IN [facility] [address] [place] [address] END OF REPORT
--- NOTE | 2018-09-17 17:00 | NUR ---
COMPLETE BB LINEN CHANGEA DM. CHG BATH ADM.
--- NOTE | 2018-09-17 17:24 | MORECARE ---
CASE MANAGEMENT DISCHARGE SUMMARY PATIENT: NILAY RODRIGUEZ UNIT: [id number] ADM DATE: 08/08/18 AGE: 83 : 36 SEX: M ROOM/BED: D.2306 AUTHOR: BELIA,DOC PHYSICIAN: REFERRING PHYSICIAN: HERBERTH WILSON MD DATE OF SERVICE: 09/17/18 Discharge Plan Patient Name: NILAY RODRIGUEZ Facility: [facility]:[place] : 1935 Planned Disposition: Assisted Living Anticipated Discharge Date: 08/11/18 Discharge Date: Expected LOS: 3 Initial Reviewer: [email or web address] Initial Review Date: 08/08/2018 Generated: 09/17/18 6:23 pm Comments DCP- Discharge Planning Updated by [id number]: Anjelica Hannah on 09/17/18 4:[address] CM received order for LTACH placement. CM spoke with patient's son Berny Rodriguez [phone]. CM explained what LTACH was and how this could benefit patient. Berny stated his understanding and would prefer for patient to go to LTACH locally if possible and if not then [facility] in [place]. MARY filled reflecting this request. CM contacted Mago @ [facility] in [place] and faxed records. Mago stated that if everything checks out then she would call CM in am with acceptance / denial. CM also spoke with [facility] on the potential referral if not accepted at [facility]. CM will continue to follow and assist as needed with discharge planning / needs. DCP- Discharge Planning Updated by [id number]: Adelaida Aj on 08/31/18 2:[address] TELEPHONE MESSAGE TO ACUTE SPRAYER HAND REGARDING ACUTE REHAB STATUS. SURGERY STATING REHAB PLACEMENT SOON. DCP- Discharge Planning Updated by [id number]: Lita Limon on 08/29/18 1:[address] Patient will not be discharging to inpatient rehab today due to him needing a repeat ct scan that is ordered for Saturday. DCP- Discharge Planning Updated by [email or web address]: Lita Limon on 08/29/18 11:[address] IMM SERVED AND EXPLAINED. ANTICIPATE DC TO INPATIENT REHAB LATER THIS AFTERNOON DCP- Discharge Planning Updated by [email or web address]: Adelaida Aj on 08/10/18 4:[address] CM RECEIVED AN ORDER FOR DISCHARGE PLANNING. THIS PATIENT WAS SEEN IN THE ER FOR DISCHARGE PLANNING. HE LIVES AT [facility] WITH HIS ON THE 3RD FLOOR. HAS [facility].PLANS FOR RESUMPTION OF CARE AT DISCHARGE.PCP- DR PINEDO. PHARMACY - [facility]. WILL HAVE TRANSPORTATION TO HOME. HE IS SITTINGUP AT A 90 DEGREES IN BED. STATES HE IS VERY, VERY NAUSEOUS. CM WILL FOLLOW TO ASSIST IS APPROPRIATE. DCP- Discharge Planning Updated by [id number]: Selena Mccartney on 08/08/18 2:[address] Patient Name: NILAY RODRIGUEZ Admission Status: ER Accout number: [id number] Admission Date: 08-08-2018 : 1935 Admission Diagnosis: Attending: HERBERTH WILSON Current LOS: 1 Anticipated DC Date: 08-11-2018 Planned Disposition: Assisted Living Primary Insurance: MEDICARE A & B Discharge Planning Comments: CM met with patient to complete initial dc planning assessment. CM educated patient on the CM role and verbal consent given by patient to complete assessment. CM verified patient's address, phone number, and emergency contact phone numbers. Patient lives at [facility] with his . Patient currently has [facility] and wishes to resume at discharge. MARY form signed by patient for resumption of [facility]. Signed form placed in chart and signed form given to patient. At discharge patient plans to return [facility] and feels this is a safe discharge. Patient denied further known discharge needs at this time. . Patient reports [facility] will transport him home at time of discharge.CM will continue to follow and will assist as needed with dc plans/needs. Pipefitter Helper: Selena Mccartney RN, [facility] DCPIA - Discharge Planning Initial Assessment Updated by [email or web address]: Selena Mccartney on 08/08/18 3:19 pm * Is the patient Alert and Oriented? Yes * How many steps to enter\exit or inside your home? None * PCP Dr. Pinedo * [facility]acy [facility] [address]. * Preadmission Environment Assisted Living * Facility Name [facility] * ADLs Partial Dependent * Partial ADLs (Assistance needed) Ambulation Medication Management * Equipment Rolling Walker Wheelchair * List name and contact numbers for known caregivers / representatives who currently or will assist patient after discharge: Ade Byrd - - [phone] Berny Diggs son - [phone] * Please name any agencies selected above. [facility] - MARY singed in ER for resumption at time of discharge. * Additional services required to return to the preadmission environment? No * Can the patient safely return to the preadmission environment? Yes * Has this patient been hospitalized within the prior 30 days at any hospital? Yes Coverage Notice Reviewer: [id number] Dontae Limon Notice Issued Date-Time: 08/29/2018 12:20 Notice Type: IM Discharge Notice Notice Delivered To: Patient Relationship to Patient: Erp Developer Name: Delivery Method: HAND - Hand Delivered Kelly Days: Prior Verbal Notification: Recipient Understood Notice: Yes Recipient Signature: Yes Med Rec Note Co-signed by Attending: Coverage Notice Comment: Last DP export: 09/17/18 2:49 p Patient Name: NILAY RODRIGUEZ Page [id number] at 1724 All edits/amendments must be made on the electronic document DICTATION DATE: 09/17/181722 FENCE BUILDER: DEMIAN 09/17/181722 RPT#: [id number] DC DATE: STATUS: ADM IN [facility] [address] [place] [address] END OF REPORT
--- NOTE | 2018-09-17 17:55 | NUR ---
OT NOTE: PT COMPLETED BUE AAROM . PT COMPLETED HYGIENE TASKS WITH JESUS MANUEL Perez THANK YOU, BERNIE BRYANT
--- NOTE | 2018-09-17 19:00 | NUR ---
SHIFT ASSESSMENT COMPLETE. VS STABLE. NO DISTRESS NOTED. WILL MONITOR.
--- NOTE | 2018-09-17 21:00 | NUR ---
VS STABLE. NO VISUAL CUES OF DISTRESS NOTED. WILL CONTINUE TO MONITOR.
--- NOTE | 2018-09-17 23:00 | NUR ---
VS STABLE. NO VISUAL CUES OF DISTRESS NOTED. WILL CONTINUE TO MONITOR.
[2018-09-18] VITALS (24 sets, daily range): BP systolic 129–171; BP diastolic 71–96
--- NOTE | 2018-09-18 01:00 | NUR ---
VS STABLE. NO VISUAL CUES OF DISTRESS NOTED. WILL CONTINUE TO MONITOR.
--- NOTE | 2018-09-18 03:00 | NUR ---
VS STABLE. NO VISUAL CUES OF DISTRESS NOTED. WILL CONTINUE TO MONITOR.
--- NOTE | 2018-09-18 05:00 | NUR ---
VS STABLE. NO VISUAL CUES OF DISTRESS NOTED. WILL CONTINUE TO MONITOR.
--- NOTE | 2018-09-18 07:50 | NUR ---
PT IS RESTING IN BED WITH EYES CLOSED. RESPIRATIONS ARE EVEN AND UNLABORED. PT WITH OCCASIONAL COUGH. CVP ELEVATED. SEE FLOWSHEET. PEREZ CATHETER NOTED AND DRAINING WITHOUT DIFFICULTY. DIMA COLORED URINE NOTED TO COLLECTION BAG. SCDS ARE ON. PT IS ON 1ST STEP OVER LAY MATTRESS. PT REPOSITIONED. PT WITHOUT INCONTINENT EPISODE OF BOWEL AT THIS TIME. MICHAEL DRAIN TO LEFT ABDOMEN IS COMPRESSED WITH BROWN FLUID NOTED. BS ARE HYPOACTIVE X 4. PT OPENS EYES TO VERBAL STIMULATION BUT DOES NOT COMMUNICATE. PT DOES NOT APPEAR TO BE IN APPARENT DISTRESS AT THIS TIME. WILL CONT TO CLOSELY MONITOR.
[2018-09-18 09:00] LABS: BASOPHILS 0 % (0-2); EOSINOPHILS 0.6 % (0-7); HEMATOCRIT 28.2 % (42.0-54.0); HEMOGLOBIN 8.8 g/dL (13.5-17.5); LYMPHOCYTES 3.2 % (15-50); MCH 28.5 pg (26.0-34.0); MCHC 31.2 g/dL (31.0-37.0); MEAN PLATELET VOLUME 12.5 fL (7.4-10.4); MONOCYTES 4.9 % (2-11); NEUTROPHILS 90.3 % (40-80); PLATELET COUNT 81 10x3/uL (130-400); RBC 3.09 10x6/uL (4.20-6.10); RDW 16.9 % (11.5-14.5); WBC 12.5 10x3/uL (4.8-10.8)
[2018-09-18 09:02] LABS: MCV 91.3 fL (80.0-100.0)
[2018-09-18 09:04] LABS: ALBUMIN 2.7 g/dL (3.4-5.0); BILIRUBIN - TOTAL 0.88 mg/dL (0.2-1.3); CALCIUM 8.7 mg/dL (8.5-10.1); CARBON DIOXIDE 32.2 mmol/L (21.0-32.0); POTASSIUM - SERUM 3.2 mmol/L (3.5-5.1); PROTEIN - SERUM 6.1 g/dL (6.4-8.2)
--- NOTE | 2018-09-18 10:00 | NUR ---
PT REPOSITIONED TO LEFT SIDE WITH WEDGE SUPPORT. PT WITHOUT INCONTINENCE EPISODE OF BOWEL. SCDS ARE ON. ELECTROLYTE PROTOCOL FOLLOWED. SEE EMAR. SCDS ARE ON. PT OPENS EYES TO VERBAL STIMULATION. RESPIRATIONS ARE SHALLOW AND UNLABORED. ALL INFUSIONS INFUSING WITHOUT DIFFICULTY. PEREZ CATHETER DRAINING WITHOUT DIFFICULTY. MICHAEL DRAIN COMPRESSED WITH BROWN FLUID NOTED.
--- NOTE | 2018-09-18 11:09 | NUR ---
DR WILSON AT BEDSIDE. ORDERS RECD FOR TUBE FEEDING CONT AT 75ML/HR AND FLUSHED WITH 100ML Q 2 HOURS. WILL START.
--- NOTE | 2018-09-18 11:45 | NUR ---
POSITIVE BLOOD CULTURE CALLED FROM LAB. CRITICAL LAB PAPER FILLED OUT. ERIKA COLLIERN NOTIFIED OF POSITIVE BLOOD CULTURE.
--- NOTE | 2018-09-18 12:11 | NUR ---
OSMOLITE 1.5 TUBE FEEDING STARTED AT 75ML/HR WITH 100ML H2O FLUSH Q 2 HOURS.
--- NOTE | 2018-09-18 12:41 | NUR ---
PT REPOSITIONED TO BACK. PT OPENS EYES TO VERBAL STIMULATION. PT WITHOUT BOWEL INCONTINENCE AT THIS TIME. WILL CONT TO MONITOR.
--- NOTE | 2018-09-18 13:16 | NUR ---
PER DR MINAYA NOTE MERREM INFUSION TIME TO BE EXTENDED. MEDICATION ORDER CHANGED FROM 30 MINUTE INFUSION TIME TO EXTENDED INFUSION TIME. VERIFIED APPROPRIATE ORDER WITH TELEPHONE ORDER FROM DR MINAYA.
--- NOTE | 2018-09-18 13:49 | NUR ---
CHG BB GIVEN. PARTIAL LINEN CHANGE. MODERATE AMOUNT OF DARK BROWN LOOSE STOOL NOTED.
--- NOTE | 2018-09-18 15:26 | NUR ---
PT IS RESTING IN BED WITH EYES CLOSED. RESPIRATIONS ARE SHALLOW AND UNLABORED. NO CHANGE IN ASSESSMENT. VSS. SEE FLOWSHEET. PT REPOSITIONED TO RIGHT SIDE WITH WEDGE SUPPORT. PT IS ON 1ST STEP OVERLAY MATTRESS.
--- NOTE | 2018-09-18 16:13 | NUR ---
OT NOTE: PT COMPLETED UE PROM AND POSITIONING WITH JESUS MANUEL Mosquera THANK YOU, BERNIE BRYANT
--- NOTE | 2018-09-18 17:05 | NUR ---
PT WITH EPISODE OF BOWEL INCONTINENCE. PT CLEANED AND LINENS/DISPOSABLE PADS CHANGED. BEUDREAUX PASTE PLACED ON COCCYX/BUTTOCKS. PT REPOSITIONED TO LEFT SIDE. AFVSS. SEE FLOWSHEET. SCDS ARE ON. PT IS ON 1ST STEP OVERLAY MATTRESS. BED ALARM IS ON. HOB @ 30 DEGREES. WILL CONT TO MONITOR.
--- NOTE | 2018-09-18 17:24 | NUR ---
OT NOTE: PT REMAINS VERY LETHARGIC AND DIFFICULT TO AROUSE. AROUSES TO NAME BUT UNABLE TO REMAIN ALERT. PROM EXS TO B UE; UNABLE TO GET PT TO PERFORM ANY ADL TASKS. CHERISE HERNANDEZ, OTR/L
--- NOTE | 2018-09-18 18:30 | MORECARE ---
CASE MANAGEMENT DISCHARGE SUMMARY PATIENT: NILAY RODRIGUEZ UNIT: [id number] ADM DATE: 08/08/18 AGE: 83 : 36 SEX: M ROOM/BED: D.2306 AUTHOR: BELIA,DOC PHYSICIAN: REFERRING PHYSICIAN: HERBERTH WILSON MD DATE OF SERVICE: 09/18/18 Discharge Plan Patient Name: NILAY RODRIGUEZ Facility: [facility]:[place] : 1935 Planned Disposition: Jail Acute Care Facility Anticipated Discharge Date: 08/11/18 Discharge Date: Expected LOS: 3 Initial Reviewer: [email or web address] Initial Review Date: 08/08/2018 Generated: 09/18/18 7:29 pm DCP- Discharge Planning Updated by [id number]: Anjelica Hannah on 09/17/18 4:[address] CM received order for LTACH placement. CM spoke with patient's son Berny Rodriguez [phone]. CM explained what LTACH was and how this could benefit patient. Berny stated his understanding and would prefer for patient to go to LTACH locally if possible and if not then [facility] in [place]. MARY filled reflecting this request. CM contacted Mago @ [facility] in [place] and faxed records. Mago stated that if everything checks out then she would call CM in am with acceptance / denial. CM also spoke with [facility] on the potential referral if not accepted at [facility]. CM will continue to follow and assist as needed with discharge planning / needs. DCP- Discharge Planning Updated by [id number]: Adelaida Aj on 08/31/18 2:[address] TELEPHONE MESSAGE TO ACUTE MANAGER RESOURCE REGARDING ACUTE REHAB STATUS. SURGERY STATING REHAB PLACEMENT SOON. DCP- Discharge Planning Updated by [id number]: Lita Limon on 08/29/18 1:[address] Patient will not be discharging to inpatient rehab today due to him needing a repeat ct scan that is ordered for Saturday. DCP- Discharge Planning Updated by [id number]: Lita Limon on 08/29/18 11:[address] IMM SERVED AND EXPLAINED. ANTICIPATE DC TO INPATIENT REHAB LATER THIS AFTERNOON DCP- Discharge Planning Updated by [id number]: Adelaida Aj on 08/10/18 4:[address] CM RECEIVED AN ORDER FOR DISCHARGE PLANNING. THIS PATIENT WAS SEEN IN THE ER FOR DISCHARGE PLANNING. HE LIVES AT [facility] WITH HIS ON THE 3RD FLOOR. HAS [facility].PLANS FOR RESUMPTION OF CARE AT DISCHARGE.PCP- DR PINEDO. PHARMACY - [facility]. WILL HAVE TRANSPORTATION TO HOME. HE IS SITTINGUP AT A 90 DEGREES IN BED. STATES HE IS VERY, VERY NAUSEOUS. CM WILL FOLLOW TO ASSIST IS APPROPRIATE. DCP- Discharge Planning Updated by [email or web address]: Selena Mccartney on 08/08/18 2:[address] Patient Name: NILAY RODRIGUEZ Admission Status: ER Accout number: [id number] Admission Date: 08-08-2018 : 1935 Admission Diagnosis: Attending: HERBERTH WILSON Current LOS: 1 Anticipated DC Date: 08-11-2018 Planned Disposition: Assisted Living Primary Insurance: MEDICARE A & B Discharge Planning Comments: CM met with patient to complete initial dc planning assessment. CM educated patient on the CM role and verbal consent given by patient to complete assessment. CM verified patient's address, phone number, and emergency contact phone numbers. Patient lives at [facility] with his . Patient currently has [facility] and wishes to resume at discharge. MARY form signed by patient for resumption of [facility]. Signed form placed in chart and signed form given to patient. At discharge patient plans to return [facility] and feels this is a safe discharge. Patient denied further known discharge needs at this time. . Patient reports [facility] will transport him home at time of discharge.CM will continue to follow and will assist as needed with dc plans/needs. Supervisor Uranium Processing: Selena Mccartney RN, [facility] DCPIA - Discharge Planning Initial Assessment Updated by [id number]: Selena Mccartney on 08/08/18 3:19 pm * Is the patient Alert and Oriented? Yes * How many steps to enter\exit or inside your home? None * PCP Dr. Pinedo * [facility] [address]. * Preadmission Environment Assisted Living * Facility Name [facility] * ADLs Partial Dependent * Partial ADLs (Assistance needed) Ambulation Medication Management * Equipment Rolling Walker Wheelchair * List name and contact numbers for known caregivers / representatives who currently or will assist patient after discharge: Ade Byrd - - [phone] Berny Diggs son - [phone] * Please name any agencies selected above. [facility] for resumption at time of discharge. * Additional services required to return to the preadmission environment? No * Can the patient safely return to the preadmission environment? Yes * Has this patient been hospitalized within the prior 30 days at any hospital? Yes Coverage Notice Reviewer: [email or web address] Dontae Limon Notice Issued Date-Time: 08/29/2018 12:20 Notice Type: IM Discharge Notice Notice Delivered To: Patient Relationship to Patient: Lead Ruby On Rails Developer Name: Delivery Method: HAND - Hand Delivered Kelly Days: Prior Verbal Notification: Recipient Understood Notice: Yes Recipient Signature: Yes Med Rec Note Co-signed by Attending: Coverage Notice Comment: Last DP export: 09/17/18 4:24 p Patient Name: NILAY RODRIGUEZ Page [id number] at 1830 All edits/amendments must be made on the electronic document DICTATION DATE: 09/18/181828 OPERATIONS SUPPORT MANAGER: DEMIAN 09/18/181828 RPT#: [id number] DC DATE: STATUS: ADM IN [facility] [address] [place] [address] END OF REPORT
--- NOTE | 2018-09-18 18:36 | NUR ---
PT REPOSITIONED TO BACK. PT WITHOUT INCONTINENT EPISODE OF BOWEL AT THIS TIME. SCDS ARE ON. PT ON 1 STEP OVER LAY MATTRESS. PT OPENS EYES TO VERBAL STIMULATION. NO VISUAL CUES OF DISTRESS AT THIS TIME.
--- NOTE | 2018-09-18 18:55 | MORECARE ---
CASE MANAGEMENT DISCHARGE SUMMARY PATIENT: NILAY RODRIGUEZ UNIT: [id number] ADM DATE: 08/08/18 AGE: 83 : 36 SEX: M ROOM/BED: D.2306 AUTHOR: BELIA,DOC PHYSICIAN: REFERRING PHYSICIAN: HERBERTH WILSON MD DATE OF SERVICE: 09/18/18 Discharge Plan Patient Name: NILAY RODRIGUEZ Facility: [facility]:[place] : 1935 Planned Disposition: Jail Acute Care Facility Anticipated Discharge Date: 08/11/18 Discharge Date: Expected LOS: 3 Initial Reviewer: [email or web address] Initial Review Date: 08/08/2018 Generated: 09/18/18 7:54 pm Comments DCP- Discharge Planning Updated by [id number]: Anjelica Hannah on 09/18/18 5:[address] CM spoke with Mago from [facility] she had multiple questions that needed answered regarding patient care upon discharge. TERI was able to get information back to Mago. Dr. Couch agreed that if patient needed surgical intervention that patient could transfer back to their care. CM faxed additional records to Mago. TERI requested a CD of radiology films and that is on front of chart to transfer with patient in am. TERI spoke with Akin Rodriguez (son) that the plan is for patient to discharge in am to [facility] in [place]. TERI explained D/C IMM and Akin verified understanding 09/18/18 @ 1315. Akin stated he would let his mother know. Plan for patient to transfer to [facility] in am. CM will continue to follow and assist as needed with discharge planning / needs. DCP- Discharge Planning Updated by [id number]: Anjelica Hannah on 09/17/18 4:[address] CM received order for LTACH placement. TERI spoke with patient's son Akin Rodriguez [phone]. TERI explained what LTACH was and how this could benefit patient. Akin stated his understanding and would prefer for patient to go to LTACH locally if possible and if not then [facility] in [place]. [facility] filled reflecting this request. TERI contacted Mago @ [facility] in and faxed records. Mago stated that if everything checks out then she would call CM in am with acceptance / denial. CM also spoke with [facility] on the potential referral if not accepted at [facility]. CM will continue to follow and assist as needed with discharge planning / needs. DCP- Discharge Planning Updated by [id number]: Adelaida Aj on 08/31/18 2:[address] TELEPHONE MESSAGE TO ACUTE CURRICULUM COACH REGARDING ACUTE REHAB STATUS. SURGERY STATING REHAB PLACEMENT SOON. DCP- Discharge Planning Updated by [id number]: Litalucille Limon on 08/29/18 1:[address] Patient will not be discharging to inpatient rehab today due to him needing a repeat ct scan that is ordered for Saturday. DCP- Discharge Planning Updated by [id number]: Lita Limon on 08/29/18 11:[address] IMM SERVED AND EXPLAINED. ANTICIPATE DC TO INPATIENT REHAB LATER THIS AFTERNOON DCP- Discharge Planning Updated by [email or web address]: Adelaida Aj on 08/10/18 4:[address] CM RECEIVED AN ORDER FOR DISCHARGE PLANNING. THIS PATIENT WAS SEEN IN THE ER FOR DISCHARGE PLANNING. HE LIVES AT [facility] WITH HIS ON THE 3RD FLOOR. HAS [facility] AND [facility]IST[facility].PLANS FOR RESUMPTION OF CARE AT DISCHARGE.PCP- DR PINEDO. PHARMACY - [facility]. WILL HAVE TRANSPORTATION TO HOME. HE IS SITTINGUP AT A 90 DEGREES IN BED. STATES HE IS VERY, VERY NAUSEOUS. CM WILL FOLLOW TO ASSIST IS APPROPRIATE. DCP- Discharge Planning Updated by [id number]: Selenanoah Mccartney on 08/08/18 2:[address] Patient Name: NILAY RODRIGUEZ Admission Status: ER Accout number: [id number] Admission Date: 08-08-2018 : 1935 Admission Diagnosis: Attending: HERBERTH WILSON Current LOS: 1 Anticipated DC Date: 08-11-2018 Planned Disposition: Assisted Living Primary Insurance: MEDICARE A & B Discharge Planning Comments: CM met with patient to complete initial dc planning assessment. CM educated patient on the CM role and verbal consent given by patient to complete assessment. CM verified patient's address, phone number, and emergency contact phone numbers. Patient lives at [facility] with his . Patient currently has [facility] and wishes to resume at discharge. MARY form signed by patient for resumption of [facility]. Signed form placed in chart and signed form given to patient. At discharge patient plans to return [facility] and feels this is a safe discharge. Patient denied further known discharge needs at this time. . Patient reports [facility] will transport him home at time of discharge.CM will continue to follow and will assist as needed with dc plans/needs. Business Process Consultant: Selena Mccartney RN, [facility] DCPIA - Discharge Planning Initial Assessment Updated by [email or web address]: Selena Mccartney on 08/08/18 3:19 pm * Is the patient Alert and Oriented? Yes * How many steps to enter\exit or inside your home? None * PCP Dr. Pinedo * Pharm[facility] [address]. * Preadmission Environment Assisted Living * Facility Name [facility] * ADLs Partial Dependent * Partial ADLs (Assistance needed) Ambulation Medication Management * Equipment Rolling Walker Wheelchair * List name and contact numbers for known caregivers / representatives who currently or will assist patient after discharge: Ade Byrd - [phone] Akin Diggs son - [phone] * Please name any agencies selected above. [facility] - MARY singed in ER for resumption at time of discharge. * Additional services required to return to the preadmission environment? No * Can the patient safely return to the preadmission environment? Yes * Has this patient been hospitalized within the prior 30 days at any hospital? Yes Coverage Notice Reviewer: [id number] - Lita Limon Notice Issued Date-Time: 08/29/2018 12:20 Notice Type: IM Discharge Notice Notice Delivered To: Patient Relationship to Patient: Personal Care Home Administrator Name: Delivery Method: HAND - Hand Delivered Kelly Days: Prior Verbal Notification: Recipient Understood Notice: Yes Recipient Signature: Yes Med Rec Note Co-signed by Attending: Coverage Notice Comment: Reviewer: [id number] - Anjelica Hannah Notice Issued Date-Time: 09/18/2018 13:15 Notice Type: IM Discharge Notice Notice Delivered To: Patient Relationship to Patient: Son Personal Care Home Administrator Name: AKIN RODRIGUEZ Delivery Method: HAND - Hand Delivered Kelly Days: Prior Verbal Notification: Yes Recipient Understood Notice: Yes Recipient Signature: Med Rec Note Co-signed by Attending: Coverage Notice Comment: Last DP export: 09/18/18 5:30 p Patient Name: NILAY RODRIGUEZ Page [phone] at 1855 All edits/amendments must be made on the electronic document DICTATION DATE: 09/18/181853 ENVIRONMENTAL SUSTAINABILITY MANAGER: DEMIAN 09/18/181853 RPT#: [id number] DC DATE: STATUS: ADM IN [facility] [address] [place] [address] END OF REPORT
[2018-09-19] VITALS (11 sets, daily range): BP systolic 127–152; BP diastolic 65–88
--- NOTE | 2018-09-19 05:00 | NUR ---
1900 REPORT RECEIVED CARE ASSUMED. ASSESSMENT DONE SEE FLOW SHEET VSS. 2100 MEDS GIVEN PER MAY. VSS 2300 REASSESSMENT DONE SEE FLOW SHEET. 0100 PT LAYING IN BED RESTING NO SIGNS OF ACUTE DISTRESS NOTED. 0300 REASSESSMENT DONE SEE FLOW SHEET. 0500 IO COLLECTED DAILY WEIGHT COLLECTED.
[2018-09-19 05:21] LABS: BASOPHILS 0 % (0-2); EOSINOPHILS 1.1 % (0-7); HEMATOCRIT 27.3 % (42.0-54.0); HEMOGLOBIN 8.6 g/dL (13.5-17.5); MCH 28.7 pg (26.0-34.0); MCHC 31.5 g/dL (31.0-37.0); MEAN PLATELET VOLUME 11.5 fL (7.4-10.4); MONOCYTES 5.7 % (2-11); NEUTROPHILS 88.2 % (40-80); PLATELET COUNT 76 10x3/uL (130-400); RDW 16.7 % (11.5-14.5); WBC 10.7 10x3/uL (4.8-10.8)
[2018-09-19 05:34] LABS: ANION GAP 9.5 mmol/L (8-16); CALCIUM 8.4 mg/dL (8.5-10.1); CARBON DIOXIDE 33.5 mmol/L (21.0-32.0); VANCOMYCIN - RANDOM 18.9 ug/mL (10.0-20.0)
--- NOTE | 2018-09-19 07:00 | NUR ---
PT RESTING IN BED LETHARGIC BUT MOVING LIMBS AND OPENING EYES. O2 AT 4LNC. MICHAEL DRAIN TO LEFT UPPER ABDOMEN. SCD HOSE INTACT. VSS. WILL CONTINUE TO MONITOR
--- NOTE | 2018-09-19 09:00 | NUR ---
PHYSICAL THERAPY CAME BY TO DO ROM EXERCISE. ALSO ASSISTED NURSE IN CHANGING ALL PT LINENS AND CLEAN UP AFTER INCONTINENT BM. TURNED TO RIGHT SIDE. VSS.
--- NOTE | 2018-09-19 10:43 | NUR ---
CALLED REPORT TO TARIQ AT [facility]. ALSO OBTAINED SIGNATURE FROM PATIETNS SON FOR TRANSFER CONSENT.
--- NOTE | 2018-09-19 11:00 | NUR ---
OT NOTE: PROM WITH PT TODAY. PT WITH RESISTANCE FOR L UE; BED MOB WITH MAX ASSIST WHILE PT WAS BEING CLEANED. PT WAS NOT ALERT OR ORIENTED. ONLY GRIMACES NOTED DURING BED MOB. CHERISE HERNANDEZ OTR/L
--- NOTE | 2018-09-19 11:38 | NUR ---
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 VSS. CALLED TARIQ FROM [facility] TO INFORM PATIENT IS ON WAY.
--- NOTE | 2018-09-19 13:43 | MORECARE ---
CASE MANAGEMENT DISCHARGE SUMMARY PATIENT: NILAY RODRIGUEZ UNIT: [id number] ADM DATE: 08/08/18 AGE: 83 : 36 SEX: M ROOM/BED: D.2306 AUTHOR: LEONARDO CELAYA PHYSICIAN: REFERRING PHYSICIAN: HERBERTH WILSON MD DATE OF SERVICE: 09/19/18 Discharge Plan Patient Name: NILAY RODRIGUEZ Facility: [facility]:[place] : 1935 Planned Disposition: Jail Acute Care Facility Anticipated Discharge Date: 08/11/18 Discharge Date: 09/19/2018 Expected LOS: 3 Initial Reviewer: [email or web address] Initial Review Date: 08/08/2018 Generated: 09/19/18 2:43 pm Comments DCP- Discharge Planning Updated by [id number]: Anjelica Hannah on 09/19/18 12:[address] Patient Name: NILAY RODRIGUEZ Encounter No: [id number] : 1935 Primary Insurance: MEDICARE A & B Anticipated DC Date: 08-11-2018 Planned Disposition: Jail Acute Care Facility External Planned Provider: : Patient transferred to [facility] IN [place] DCP follow-up note: Patient and family in agreement with discharge plan. No changes to plan. Case management will follow and assist as needed. Anjelica Hannah DCP- Discharge Planning Updated by [email or web address]: Anjelica Hannah on 09/18/18 5:[address] CM spoke with Mago from [facility] she had multiple questions that needed answered regarding patient care upon discharge. TERI was able to get information back to Mago. Dr. Couch agreed that if patient needed surgical intervention that patient could transfer back to their care. CM faxed additional records to Mago. CM requested a CD of radiology films and that is on front of chart to transfer with patient in am. CM spoke with Akin Rodriguez (son) that the plan is for patient to discharge in am to [facility]. TERI explained D/C IMM and Akin verified understanding 09/18/18 @ 1315. Akin stated he would let his mother know. Plan for patient to transfer to [facility] in am. CM will continue to follow and assist as needed with discharge planning / needs. DCP- Discharge Planning Updated by [id number]: Anjelica Brielle on 09/17/18 4:[address] CM received order for LTACH placement. CM spoke with patient's son Akin Rodriguez [phone]. CM explained what LTACH was and how this could benefit patient. Akin stated his understanding and would prefer for patient to go to LTACH locally if possible and if not then [facility] in [place]. MARY filled reflecting this request. CM contacted Mago @ [facility] in [place] and faxed records. Mago stated that if everything checks out then she would call CM in am with acceptance / denial. CM also spoke with [facility] on the potential referral if not accepted at [facility]. CM will continue to follow and assist as needed with discharge planning / needs. DCP- Discharge Planning Updated by [id number]: Adelaida Aj on 08/31/18 2:[address] TELEPHONE MESSAGE TO ACUTE VOLLEYBALL REFEREE REGARDING ACUTE REHAB STATUS. SURGERY STATING REHAB PLACEMENT SOON. DCP- Discharge Planning Updated by [id number]: Lita Limon on 08/29/18 1:[address] Patient will not be discharging to inpatient rehab today due to him needing a repeat ct scan that is ordered for Saturday. DCP- Discharge Planning Updated by [id number]: Lita Limon on 08/29/18 11:[address] IMM SERVED AND EXPLAINED. ANTICIPATE DC TO INPATIENT REHAB LATER THIS AFTERNOON DCP- Discharge Planning Updated by [id number]: Adelaida Aj on 08/10/18 4:[address] CM RECEIVED AN ORDER FOR DISCHARGE PLANNING. THIS PATIENT WAS SEEN IN THE ER FOR DISCHARGE PLANNING. HE LIVES AT [facility] WITH HIS ON THE 3RD FLOOR. HAS [facility].PLANS FOR RESUMPTION OF CARE AT DISCHARGE.PCP- DR PINEDO. PHARMACY - [facility]. WILL HAVE TRANSPORTATION TO HOME. HE IS SITTINGUP AT A 90 DEGREES IN BED. STATES HE IS VERY, VERY NAUSEOUS. CM WILL FOLLOW TO ASSIST IS APPROPRIATE. DCP- Discharge Planning Updated by [id number]: Selena Mccartney on 08/08/18 2:[address] Patient Name: NILAY RODRIGUEZ Admission Status: ER Accout number: [id number] Admission Date: 08-08-2018 : 1935 Admission Diagnosis: Attending: HERBERTH WILSON Current LOS: 1 Anticipated DC Date: 08-11-2018 Planned Disposition: Assisted Living Primary Insurance: MEDICARE A & B Discharge Planning Comments: CM met with patient to complete initial dc planning assessment. CM educated patient on the CM role and verbal consent given by patient to complete assessment. CM verified patient's address, phone number, and emergency contact phone numbers. Patient lives at [facility] with his . Patient currently has [facility] and wishes to resume at discharge. MARY form signed by patient for resumption of [facility]. Signed form placed in chart and signed form given to patient. At discharge patient plans to return [facility] and feels this is a safe discharge. Patient denied further known discharge needs at this time. . Patient reports [facility] will transport him home at time of discharge.CM will continue to follow and will assist as needed with dc plans/needs. [employer] Consultant: Selena Mccartney RN, [facility] DCPIA - Discharge Planning Initial Assessment Updated by [email or web address]: Selena Mccartney on 08/08/18 3:19 pm * Is the patient Alert and Oriented? Yes * How many steps to enter\exit or inside your home? None * PCP Dr. Pinedo * Pharm[facility] [address]. * Preadmission Environment Assisted Living * Facility Name [facility] * ADLs Partial Dependent * Partial ADLs (Assistance needed) Ambulation Medication Management * Equipment Rolling Walker Wheelchair * List name and contact numbers for known caregivers / representatives who currently or will assist patient after discharge: Ade Diggs - [phone] Akin Diggs son - [phone] * Please name any agencies selected above. [facility] - MARY singed in ER for resumption at time of discharge. * Additional services required to return to the preadmission environment? No * Can the patient safely return to the preadmission environment? Yes * Has this patient been hospitalized within the prior 30 days at any hospital? Yes Coverage Notice Reviewer: [id number] Dontae Limon Notice Issued Date-Time: 08/29/2018 12:20 Notice Type: IM Discharge Notice Notice Delivered To: Patient Relationship to Patient: Meeting/Event Planner Name: Delivery Method: HAND - Hand Delivered Kelly Days: Prior Verbal Notification: Recipient Understood Notice: Yes Recipient Signature: Yes Med Rec Note Co-signed by Attending: Coverage Notice Comment: Reviewer: [id number] Dontae Hannah Notice Issued Date-Time: 09/18/2018 13:15 Notice Type: IM Discharge Notice Notice Delivered To: Patient Relationship to Patient: Son Meeting/Event Planner Name: AKIN RODRIGUEZ Delivery Method: HAND - Hand Delivered Kelly Days: Prior Verbal Notification: Yes Recipient Understood Notice: Yes Recipient Signature: Med Rec Note Co-signed by Attending: Coverage Notice Comment: Last DP export: 09/18/18 5:55 p Patient Name: NILAY RODRIGUEZ Page [id number] at 1343 All edits/amendments must be made on the electronic document DICTATION DATE: 09/19/18 1343 [employer]: DEMIAN 09/19/18 1343 RPT#: [id number] DC DATE:09/19/18 STATUS: DIS IN [facility] [address] [place] [address] END OF REPORT
== END 2018-09-19 11:43 | disposition short-term general hospital (02) | DRG 326 ==
LOC: D.ER 11:30 → D.ICU 14:14 → D.EDHOLD 14:14 → D.MS 14:14 → D.ICU 09-08 17:14
PROVIDERS: Emergency Medicine; Family Medicine; General Practice; Internal Medicine; Internal Medicine Nephrology; Internal Medicine Pulmonary Disease; Radiology Diagnostic Radiology; Student in an Organized Health Care Education/Training Program; Surgery; ADMIT Internal Medicine Nephrology; ATTEND Internal Medicine Nephrology
PROC: 0F9430Z Drainage of Gallbladder with Drainage Device, Percutaneous Approach (ICD-10-PCS; 2018-08-14)
PROC: 0F9G30Z Drainage of Pancreas with Drainage Device, Percutaneous Approach (ICD-10-PCS; principal; 2018-08-19 08:34)
PROC: 0W993ZZ Drainage of Right Pleural Cavity, Percutaneous Approach (ICD-10-PCS; 2018-09-02)
PROC: 0D160ZA Bypass Stomach to Jejunum, Open Approach (ICD-10-PCS; 2018-09-08)
PROC: 0DTF0ZZ Resection of Right Large Intestine, Open Approach (ICD-10-PCS; 2018-09-08)
PROC: 0FBG0ZZ Excision of Pancreas, Open Approach (ICD-10-PCS; 2018-09-08)
PROC: 0W2FX0Z Change Drainage Device in Abdominal Wall, External Approach (ICD-10-PCS; 2018-09-08)
DX: K91.89 Other postprocedural complications and disorders of digestive system (principal); K85.92 Acute pancreatitis with infected necrosis, unspecified; E43 Unspecified severe protein-calorie malnutrition; J96.01 Acute respiratory failure with hypoxia; N17.0 Acute kidney failure with tubular necrosis; R65.21 Severe sepsis with septic shock; A41.9 Sepsis, unspecified organism; K65.8 Other peritonitis; K86.3 Pseudocyst of pancreas; E87.1 Hypo-osmolality and hyponatremia; E87.2 Acidosis; K83.8 Other specified diseases of biliary tract; I10 Essential (primary) hypertension; K21.9 Gastro-esophageal reflux disease without esophagitis; E78.5 Hyperlipidemia, unspecified; C61 Malignant neoplasm of prostate; D50.9 Iron deficiency anemia, unspecified; R32 Unspecified urinary incontinence; F50.89 Other specified eating disorder; E87.6 Hypokalemia; R53.81 Other malaise; R00.0 Tachycardia, unspecified